=== PATIENT | female | born 1970 | race Caucasian/White ===

== ENCOUNTER → 2019-05-23 09:48 | Outpatient (BNVA) | payer MEDICARE, MEDICAID, SELFPAY | PROVIDERS: Family Provider Family Medicine; PCP Family Medicine; Visit Provider Nurse Practitioner Psychiatric/Mental Health | DX: F20.0 Paranoid schizophrenia (principal); F17.210 Nicotine dependence, cigarettes, uncomplicated; R41.83 Borderline intellectual functioning | CPT/HCPCS: 99213 ==

== ENCOUNTER → 2019-06-19 12:42 | Outpatient (BNVA) | payer MEDICARE, MEDICAID, SELFPAY | PROVIDERS: Family Provider Family Medicine; PCP Family Medicine; Visit Provider Nurse Practitioner Psychiatric/Mental Health | DX: R41.83 Borderline intellectual functioning (principal); F17.210 Nicotine dependence, cigarettes, uncomplicated; F25.0 Schizoaffective disorder, bipolar type; F20.0 Paranoid schizophrenia | CPT/HCPCS: 99213 ==

== ENCOUNTER → 2019-07-21 13:48 | Outpatient (BNVA) | payer MEDICARE, MEDICAID, SELFPAY | PROVIDERS: Family Provider Family Medicine; PCP Family Medicine; Visit Provider Nurse Practitioner Psychiatric/Mental Health | DX: R41.83 Borderline intellectual functioning (principal); F17.210 Nicotine dependence, cigarettes, uncomplicated; F25.0 Schizoaffective disorder, bipolar type; F20.0 Paranoid schizophrenia | CPT/HCPCS: 99213 ==

== ENCOUNTER → 2019-08-18 07:31 | Outpatient (BNVA) | payer MEDICARE, MEDICAID, SELFPAY | PROVIDERS: Family Provider Family Medicine; PCP Family Medicine; Visit Provider Nurse Practitioner Psychiatric/Mental Health | DX: F25.0 Schizoaffective disorder, bipolar type (principal); F20.0 Paranoid schizophrenia; R41.83 Borderline intellectual functioning; F17.210 Nicotine dependence, cigarettes, uncomplicated; F43.12 Post-traumatic stress disorder, chronic | CPT/HCPCS: 99213 ==

== ENCOUNTER → 2019-09-15 08:14 | Outpatient (BNVA) | payer MEDICARE, MEDICAID, SELFPAY | PROVIDERS: Family Provider Family Medicine; PCP Family Medicine; Visit Provider Nurse Practitioner Psychiatric/Mental Health | DX: F25.0 Schizoaffective disorder, bipolar type (principal); F20.0 Paranoid schizophrenia; R41.83 Borderline intellectual functioning; F17.210 Nicotine dependence, cigarettes, uncomplicated | CPT/HCPCS: 99213 ==

== ENCOUNTER → 2019-10-13 08:19 | Outpatient (BNVA) | payer MEDICARE, MEDICAID, SELFPAY | PROVIDERS: Family Provider Family Medicine; PCP Family Medicine; Visit Provider Nurse Practitioner Psychiatric/Mental Health | DX: F25.0 Schizoaffective disorder, bipolar type (principal); F20.0 Paranoid schizophrenia; R41.83 Borderline intellectual functioning; F17.210 Nicotine dependence, cigarettes, uncomplicated | CPT/HCPCS: 99213 ==

== ENCOUNTER → 2019-11-10 08:44 | Outpatient (BNVA) | payer MEDICARE, MEDICAID, SELFPAY | PROVIDERS: Family Provider Family Medicine; PCP Family Medicine; Visit Provider Nurse Practitioner Psychiatric/Mental Health | DX: F25.0 Schizoaffective disorder, bipolar type (principal); F20.0 Paranoid schizophrenia; R41.83 Borderline intellectual functioning; F17.210 Nicotine dependence, cigarettes, uncomplicated | CPT/HCPCS: 99213 ==

== ENCOUNTER → 2019-12-21 08:01 | Outpatient (BNVA) | payer MEDICARE, MEDICAID, SELFPAY | PROVIDERS: Family Provider Family Medicine; PCP Family Medicine; Visit Provider Nurse Practitioner Psychiatric/Mental Health | DX: F20.0 Paranoid schizophrenia; R41.83 Borderline intellectual functioning; F17.210 Nicotine dependence, cigarettes, uncomplicated | CPT/HCPCS: 99214 ==

== ENCOUNTER → 2020-01-19 08:29 | Outpatient (BNVA) | payer MEDICARE, MEDICAID, SELFPAY | PROVIDERS: Family Provider Family Medicine; PCP Family Medicine; Visit Provider Nurse Practitioner Psychiatric/Mental Health | DX: F25.0 Schizoaffective disorder, bipolar type (principal); F20.0 Paranoid schizophrenia; R41.83 Borderline intellectual functioning; F17.210 Nicotine dependence, cigarettes, uncomplicated | CPT/HCPCS: 99213 ==

== ENCOUNTER 2020-02-29 10:48 | Outpatient (CLI) | payer MEDICARE, MEDICAID, SELFPAY ==
--- NOTE | 2020-02-29 10:56 | MM_ITS ---
WS: [id number] BILATERAL SCREENING DIGITAL MAMMOGRAM WITH CAD HISTORY: SCREENING COMPARISON: 02/27/2019 and 02/25/2018 Bilateral CC and MLO views submitted. Computer aided detection analyzed. Breast composition: There are scattered areas of fibroglandular density. No suspicious masses, microc alcifications or architectural distortion. MM/[id number] IMPRESSION: BI-RADS: 1-Negative FOLLOW UP: 1 Year Follow-up
== END 2020-02-29 10:49 | disposition home or self-care (01) ==
LOC: RADSHAW 10:53
PROVIDERS: PCP Family Medicine; Visit Provider Family Medicine
DX: Z12.31 Encounter for screening mammogram for malignant neoplasm of breast (principal)
CPT/HCPCS: 77067

== ENCOUNTER → 2020-06-06 09:10 | Outpatient (BNVA) | payer MEDICARE, MEDICAID, SELFPAY | PROVIDERS: PCP Family Medicine; Visit Provider Nurse Practitioner Psychiatric/Mental Health | DX: F25.0 Schizoaffective disorder, bipolar type (principal); F20.0 Paranoid schizophrenia; R41.83 Borderline intellectual functioning; F17.210 Nicotine dependence, cigarettes, uncomplicated | CPT/HCPCS: 99214 ==

== ENCOUNTER → 2020-07-04 07:38 | Outpatient (BNVA) | payer MEDICARE, MEDICAID, SELFPAY | PROVIDERS: PCP Family Medicine; Visit Provider Nurse Practitioner Psychiatric/Mental Health | DX: F25.0 Schizoaffective disorder, bipolar type (principal); F20.0 Paranoid schizophrenia; R41.83 Borderline intellectual functioning; F17.210 Nicotine dependence, cigarettes, uncomplicated | CPT/HCPCS: 99214 ==

== ENCOUNTER → 2020-08-01 08:01 | Outpatient (BNVA) | payer MEDICARE, MEDICAID, SELFPAY | PROVIDERS: PCP Family Medicine; Visit Provider Nurse Practitioner Psychiatric/Mental Health | DX: F25.0 Schizoaffective disorder, bipolar type (principal); F20.0 Paranoid schizophrenia; R41.83 Borderline intellectual functioning; F17.210 Nicotine dependence, cigarettes, uncomplicated | CPT/HCPCS: 99214 ==

== ENCOUNTER → 2020-08-29 09:12 | Outpatient (BNVA) | payer MEDICARE, MEDICAID, SELFPAY | PROVIDERS: PCP Family Medicine; Visit Provider Nurse Practitioner Psychiatric/Mental Health | DX: F25.0 Schizoaffective disorder, bipolar type (principal); F20.0 Paranoid schizophrenia; R41.83 Borderline intellectual functioning; F17.210 Nicotine dependence, cigarettes, uncomplicated | CPT/HCPCS: 99214 ==

== ENCOUNTER → 2020-10-04 08:08 | Outpatient (BNVA) | payer MEDICARE, MEDICAID, SELFPAY | PROVIDERS: PCP Family Medicine; Visit Provider Nurse Practitioner Psychiatric/Mental Health | DX: F25.0 Schizoaffective disorder, bipolar type (principal); F20.0 Paranoid schizophrenia; R41.83 Borderline intellectual functioning; F17.210 Nicotine dependence, cigarettes, uncomplicated | CPT/HCPCS: 99214 ==

== ENCOUNTER → 2020-11-14 07:36 | Outpatient (BNVA) | payer MEDICARE, MEDICAID, SELFPAY | PROVIDERS: PCP Family Medicine; Visit Provider Nurse Practitioner Psychiatric/Mental Health | DX: F25.0 Schizoaffective disorder, bipolar type (principal); F20.0 Paranoid schizophrenia; R41.83 Borderline intellectual functioning; F17.210 Nicotine dependence, cigarettes, uncomplicated | CPT/HCPCS: 99214 ==

== ENCOUNTER → 2020-12-19 07:16 | Outpatient (BNVA) | payer MEDICARE, MEDICAID, SELFPAY | PROVIDERS: PCP Family Medicine; Visit Provider Nurse Practitioner Psychiatric/Mental Health | DX: F25.0 Schizoaffective disorder, bipolar type (principal); F20.0 Paranoid schizophrenia; R41.83 Borderline intellectual functioning; F17.210 Nicotine dependence, cigarettes, uncomplicated; Z79.899 Other long term (current) drug therapy | CPT/HCPCS: 99214 ==

== ENCOUNTER 2021-01-03 07:39 | Outpatient (CLI) | payer MEDICARE, MEDICAID, SELFPAY ==
[2021-01-03 08:05] VITALS: BP 105/75; PULSE 81; RESP 20; TEMP 36.8; O2SAT 97; BMI 41.2
[2021-01-03 08:37] VITALS: BP 97/71; PULSE 77; O2SAT 95
[2021-01-03 09:31] VITALS: BP 97/69; PULSE 73; RESP 20; TEMP 36.6; O2SAT 98
== END 2021-01-03 07:40 | disposition home or self-care (01) ==
PROVIDERS: PCP Family Medicine; Visit Provider Family Medicine
DX: U07.1 COVID-19 (principal)
CPT/HCPCS: 96365

== ENCOUNTER → 2021-01-31 07:32 | Outpatient (BNVA) | payer MEDICARE, MEDICAID, SELFPAY | PROVIDERS: PCP Family Medicine; Visit Provider Nurse Practitioner Psychiatric/Mental Health | DX: F25.0 Schizoaffective disorder, bipolar type (principal); F20.0 Paranoid schizophrenia; F17.210 Nicotine dependence, cigarettes, uncomplicated; R41.83 Borderline intellectual functioning; Z79.899 Other long term (current) drug therapy | CPT/HCPCS: 99214 ==

== ENCOUNTER → 2021-02-21 13:31 | Outpatient (BNVA) | payer MEDICARE, MEDICAID, SELFPAY | PROVIDERS: PCP Family Medicine; Visit Provider Nurse Practitioner Psychiatric/Mental Health | DX: F25.0 Schizoaffective disorder, bipolar type (principal); F20.0 Paranoid schizophrenia; F17.210 Nicotine dependence, cigarettes, uncomplicated; Z79.899 Other long term (current) drug therapy; R41.83 Borderline intellectual functioning | CPT/HCPCS: 99214 ==

== ENCOUNTER → 2021-04-18 08:40 | Outpatient (BNVA) | payer MEDICARE, MEDICAID, SELFPAY | PROVIDERS: PCP Family Medicine; Visit Provider Nurse Practitioner Psychiatric/Mental Health | DX: F25.0 Schizoaffective disorder, bipolar type (principal); F20.0 Paranoid schizophrenia; F17.210 Nicotine dependence, cigarettes, uncomplicated; R41.83 Borderline intellectual functioning; Z03.89 Encounter for observation for other suspected diseases and conditions ruled out | CPT/HCPCS: 99214 ==

== ENCOUNTER 2021-04-27 03:26 | Emergency (ER) | payer MEDICARE, MEDICAID, SELFPAY ==
[2021-04-27 03:39] VITALS: BP 137/98; PULSE 78; RESP 18; TEMP 36.4; O2SAT 99; BMI 41.0
[2021-04-27] MEDS: eye irrigation 30 mL Btl EYE-BOTH (04:20)
[2021-04-27 05:20] VITALS: PULSE 78; RESP 18; O2SAT 96
[2021-04-27] MEDS: polymyxin-trimethoprim Op Soln 10 mL Btl 1 DROP EYE-BOTH (05:20)
[2021-04-27] MEDS: ketorolac 0.5% Op 5 mL Btl 1 DROP EYE-BOTH (05:20)
--- NOTE | 2021-04-27 05:26 | ED_ITS ---
HPI - Eye Problem General: Chief complaint: Eye Problems Stated complaint: Eye Irratation\Lice Shampoo Time Seen by Provider: 04/27/21 03:51 History of Present Illness: HPI Narrative: 50-year-old female with a history of schizophrenia. She had ongoing feeling of her skin and hair crawling. She was checked by staff, and no lice were found, but the patient was essentially convinced she had lice. She decided to use lice shampoo, and it got in her eyes. she washed the eyes out with water at home, but eyes are still blurry and painful. She says she washed a white film out of her eyes after the shampoo use. chief complaint: eye pain, eye redness and eye injury Onset (ago): hour(s) Onset description: sudden Duration: constant Location: both eyes Eye Symptoms: burning, redness and pain Place: other Mechanism: chemical exposure Severity: moderate If Pain, Quality: burning Context: trauma Associated symptoms: Reports rhinorrhea; Denies cough, fever(s), nausea, short of breath or vomiting Review of Systems Const: Denies: fever(s) Eyes: Reports: blurry vision, eye discomfort, eye discharge and eye redness Card: Denies: chest pain Resp: Denies: dyspnea GI: Denies: nausea or vomiting PFS ED PFSH: Medical History (Updated 04/27/21 @ 04:38 by Feroz Gaviria DO) Borderline intellectual functioning delivery delivered three times Chronic paranoid schizophrenia Cigarette nicotine dependence Psychiatric care Schizoaffective disorder, bipolar type Social History (Updated 06/19/19 @ 13:16 by Radha Castillo RN) Smoking and tobacco status: current every day smoker cigarettes Packs smoked per day: 1 Years cigarettes smoked: 20 Quit status (tobacco): considering quitting Second hand smoke exposure: Yes Smoking risk assessment/counseling performed?: No Reason smoking risk a ssessment not done: not indicated Female Reproductive History: Date of last menstrual period: 04/27/21 Physical Exam Const: COMMON NORMALS: no acute distress GENERAL APPEARANCE: not ill appearing HENMT: COMMON NORMALS: normocephalic, atraumatic and Normal external nose present HEAD & SCALP: normocephalic and atraumatic FACE & SINUS: normal facial exam NOSE: Normal external nose present and Normal nares present Eye: COMMON NORMALS: Equal, round and reactive pupils present and EOMs intact bilaterally GENERAL EYE: normal light reflex VISUAL ADEN: No peripheral vision loss and No central vision loss EYELID: eyelids normal CONJUNCTIVA: Yes conjunctival abnormal positive bilateral conjunctival injection and discharge (clear) PUPIL: Yes Equal, round and reactive pupils present DIRECT OPHTHALMOSCOPY: Yes normal light reflex Chest: COMMONS NORMALS: normal inspection of the chest Resp: COMMON NORMALS: normal respiratory effort Cardio: COMMON NORMALS: regular rate and regular rhythm RATE: regular rate RHYTHM: regular rhythm Course Vital Signs: Vital signs: Vital Signs Temperature 97.5 F L 04/27/21 03:39 Pulse Rate 78 04/27/21 05:20 Respiratory Rate 18 04/27/21 05:20 Blood Pressure 137/98 04/27/21 03:39 Pulse Oximetry 96 04/27/21 05:20 MDM - Eye Problem MDM Narrative: Medical decision making narrative: chemical conjunctivitis with pain. tetracaine used for anesthesia, eyes flushed with eye stream. polytrim drops and ketorlac for pain. ophth fu. Discharge Plan Discharge Patient Disposition: Home Clinical Impression: Conjunctivitis Qualifiers: Conjunctivitis type: acute Acute conjunctivitis type: toxic Laterality: bilateral Qualified Code(s): H10.213 - Acute toxic conjunctivitis, bilateral Condition: Stable Prescriptions: No Action magnesium hydroxide [Jamison Milk of Magnesia] 400 mg/5 mL suspension 30 ml PO DAILY PRNRF: 0 acetaminophen [Tylenol Extra Strength] 500 mg tablet 1,000 mg PO Q6H PRNRF: 0 Trelegy Ellipta 100-62.5-25 mcg blister with device 1 inh inhalation DAILY RF: 0 nicotine (polacrilex) 4 mg lozenge 4 mg BUCCAL Q1H PRN (Reason: nicotine cravings) Qty: 24 RF: 6 melatonin 3 mg capsule 3 mg PO .bedtime Qty: 30 RF: 6 diazepam [Valium] 2 mg tablet 2 mg PO BID PRN (Reason: anxiety) Qty: 60 RF: 1 magnesium hydroxide [Milk of Magnesia] 400 mg/5 mL suspension 15 ml PO DAILY PRNRF: 0 duloxetine [Cymbalta] 30 mg capsule,delayed release(DR/EC) 30 mg PO .morning Qty: 14 RF: 0 ziprasidone HCl [Geodon] 20 mg capsule 20 mg PO BID Qty: 60 RF: 1 Discharge Orders: Discharge ED (Routine); Ordered 04/27/21 Ordered By: Feroz Gaviria Referrals: Payam Martinez MD [Physician] - 1-3 days Tyson Velasco MD [Primary Care Provider] - Discharge Diet: Usual diet Discharge Activity: Increase activity as tolerated Patient Instructions: Conjunctivitis (ED) Activity Restrictions/Additional Instructions: Use the drops you were given every 6 hours while awake as directed. Return for worsening pain or vision despite treatment. Call ophthalmology clinic Wednesday morning for an appointment. Let them know you were seen in the emergency department, and referred to them. Coding Level of Care Code ED Conditioning Coach for Chg Fwd Exam Detailed
== END 2021-04-27 05:41 | disposition home or self-care (01) ==
PROVIDERS: Emergency Provider Emergency Medicine; PCP Family Medicine
DX: H10.213 Acute toxic conjunctivitis, bilateral (principal); F17.210 Nicotine dependence, cigarettes, uncomplicated; T49.0X5A Adverse effect of local antifungal, anti-infective and anti-inflammatory drugs, initial encounter
CPT/HCPCS: 99283

== ENCOUNTER → 2021-05-30 07:22 | Outpatient (BNVA) | payer MEDICARE, MEDICAID, SELFPAY | PROVIDERS: PCP Family Medicine; Visit Provider Nurse Practitioner Psychiatric/Mental Health | DX: F25.0 Schizoaffective disorder, bipolar type (principal); F20.0 Paranoid schizophrenia; F17.210 Nicotine dependence, cigarettes, uncomplicated; R41.83 Borderline intellectual functioning; Z03.89 Encounter for observation for other suspected diseases and conditions ruled out | CPT/HCPCS: 99214 ==

== ENCOUNTER 2021-06-06 10:31 | Outpatient (CLI) | payer MEDICARE, MEDICAID, SELFPAY ==
--- NOTE | 2021-06-06 10:50 | ECG_ITS ---
[facility] Test Date: 2021-06-06 Pat Name: Yahaira Meyer Department: Room: Gender: Female [employer] Principal: : 1970 Requested By: Yumiko Murphy Order Number: [id number] Mercedes MD: Isma Jaimes M.D. Measurements Intervals [place] Rate: 85 P: 15 IA: 127 QRS: -37 QRSD: 78 T: 58 QT: 346 QTc: 414 Interpretive Statements SINUS RHYTHM LEFT AXIS DEVIATION [QRS AXIS < -30] LOW QRS VOLTAGE IN PRECORDIAL LEADS [QRS DEFLECTION < 1.0 mV IN CHEST LEADS] POSSIBLE ANTERIOR MYOCARDIAL INFARCTION , OF INDETERMINATE AGE [30 ms Q WAVE IN V3/V4, OR R < 0.2 mV IN V4] No previous ECG available for comparison Electronically Signed On 06-07-2021 14:09:16 SURVEILLANCE SYSTEM MONITOR by Isma Jaimes M.D. [id number]
== END 2021-06-06 10:32 | disposition home or self-care (01) ==
PROVIDERS: PCP Family Medicine; Visit Provider Nurse Practitioner Psychiatric/Mental Health
DX: Z03.89 Encounter for observation for other suspected diseases and conditions ruled out (principal)
CPT/HCPCS: 80053; 80061; 83036; 93005

== ENCOUNTER → 2021-08-08 08:40 | Outpatient (BNVA) | payer MEDICARE, MEDICAID, SELFPAY | PROVIDERS: PCP Family Medicine; Visit Provider Nurse Practitioner Psychiatric/Mental Health | DX: F25.0 Schizoaffective disorder, bipolar type (principal); F20.0 Paranoid schizophrenia; R41.83 Borderline intellectual functioning; F17.210 Nicotine dependence, cigarettes, uncomplicated | CPT/HCPCS: 80053; 99214 ==

== ENCOUNTER 2021-08-17 16:59 | Emergency (ER) | payer MEDICARE, MEDICAID, SELFPAY ==
--- NOTE | 2021-08-17 17:01 | CTR_ITS ---
PROCEDURE INFORMATION: Exam: CT Head Without Contrast Exam date and time: 08/17/2021 4:59 PM Age: 50 years old Clinical indication: Altered mental status/memory loss; Patient HX: PT found outdoors unresponsive; Additional info: AMS TECHNIQUE: Imaging protocol: Computed tomography of the head without contrast. Radiation optimization: All CT scans at this facility use at least one of these dose optimization techniques: automated exposure control; mA and/or kV adjustment per patient size (includes targeted exams where dose is matched to clinical indication); or iterative reconstruction. COMPARISON: No relevant prior studies available. RADIATION DOSE METRICS: Total DLP (mGy-cm): 927.55 FINDINGS: Brain: There is moderate cerebral atrophy. No hemorrhage. Unremarkable white matter. No mass effect. Cerebral ventricles: No ventriculomegaly. Paranasal sinuses: Visualized sinuses are unremarkable. No fluid levels. Mastoid air cells: Visualized mastoid air cells are well aerated. Bones/joints: Unremarkable. No acute fracture. Soft tissues: Unremarkable. CT/CT head wo con* [id number] IMPRESSION: No acute intracranial abnormality.
--- NOTE | 2021-08-17 17:01 | XRR_ITS ---
PROCEDURE INFORMATION: Exam: XR Chest Exam date and time: 08/17/2021 5:25 PM Age: 50 years old Clinical indication: Shortness of breath; Patient HX: SOB and cough found unresponsive; Additional info: Dyspnea/cough TECHNIQUE: Imaging protocol: XR of the chest. Views: 1 view. COMPARISON: No relevant prior studies available. FINDINGS: Lungs: Unremarkable. No consolidation. Pleural spaces: Unremarkable. No pleural effusion. No pneumothorax. Heart/Mediastinum: Unremarkable. No cardiomegaly. Bones/joints: Unremarkable. XR/XR chest 1V portable [id number] IMPRESSION: No acute findings.
[2021-08-17] MEDS: lactated ringers 1,000 ML 999 ML IV (17:03)
--- NOTE | 2021-08-17 17:03 | W.ED.GENADLT ---
Documented by User: Devin Waddell DO 08/18/21 11:26 HPI - General Adult General: Chief complaint: Altered Mental Status Stated complaint: AMS Time Seen by Provider: 08/17/21 17:00 Source: patient Mode of arrival: ambulatory Limitations: no limitations History of Present Illness: 50-year-old female presents to the emergency room via EMS. She is unable to give any history ambulance was called [facility] a [facility] where she was found unresponsive sitting on the steps her ID was wilmer pack attached to her waist. She will respond to noxious stimuli and she will blink she is a glabellar reflex and notes pain but otherwise does not respond does not give any meaningful history at all. She does open her eyes but is not tracking at all. She not previously been here except for a conjunctivitis. She has been at [facility] multiple times in the past and has a history of schizophrenia and a history of borderline intellectual functioning. Onset (ago): unknown Treatments prior to arrival: none Review of Systems General: Reports: ROS unobtainable due to medical condition and ROS unobtainable due to mental status [facility] ED PFSH: Medical History Borderline intellectual functioning delivery delivered three times Chronic paranoid schizophrenia Cigarette nicotine dependence Psychiatric care Schizoaffective disorder, bipolar type Social History Smoking and tobacco status: current every day smoker cigarettes Packs smoked per day: 1 Years cigarettes smoked: 20 Quit status (tobacco): considering quitting Second hand smoke exposure: Yes Smoking risk assessment/counseling performed?: No Reason smoking risk assessment not done: not indicated Female Reproductive History: Date of last menstrual period: 04/27/21 Physical Exam HENMT: COMMON NORMALS: normocephalic, atraumatic, external ears normal, EAC's normal, TM's normal bilaterally, Normal nasal mucous membranes and turbinates present, moist oral mucous membranes and oropharynx normal HEAD & SCALP: normocephalic and atraumatic NOSE: Normal nasal mucous membranes and turbinates present EXTERNAL EAR: Yes external ears normal EXTERNAL AUDITORY CANAL: EAC's normal TYMPANIC MEMBRANE: TM's normal bilaterally Eye: COMMON NORMALS: Equal, round and reactive pupils present, EOMs intact bilaterally, conjunctivae normal and no scleral icterus CONJUNCTIVA: Yes conjunctivae normal PUPIL: Yes Equal, round and reactive pupils present Neck/C-Spine: COMMON NORMALS: full ROM, no lymphadenopathy, supple and no JVD Resp: COMMON NORMALS: normal respiratory effort, No retractions, No use of accessory muscles and clear to auscultation bilaterally AUSCULTATION: clear to auscultation bilaterally Cardio: COMMON NORMALS: no JVD, regular rate, regular rhythm and No murmurs present (Cardio) RATE: regular rate RHYTHM: regular rhythm GI: COMMON NORMALS: Soft to palpation and No hepatosplenomegaly present AUSCULTATION: Yes normoactive bowel sounds PALPATION: Yes Soft to palpation, No Tenderness to palpation present (GI), No Guarding due to palpation present (GI) and Yes No hepatosplenomegaly present Extremity: COMMON NORMALS: normal to inspection, capillary refill normal, no clubbing, cyanosis or edema, no calf tenderness and no pedal edema Skin: COMMON NORMALS: no rashes or lesions noted GENERAL SKIN EXAM: no rashes or lesions noted Course Vital Signs: Vital signs: Vital Signs Temperature 98.5 F 08/17/21 20:36 Pulse Rate 101 H 08/18/21 03:28 Respiratory Rate 20 H 08/18/21 03:28 Blood Pressure 105/70 08/18/21 03:28 Pulse Oximetry 95 08/18/21 03:28 [facility] - General Adult Medical Decision Making Care signed out to Dr. Gaviria at change of shift. See final notes for diagnosis and disposition. Medical Records I reviewed the patient's medical records. Lab Data I reviewed the patient's lab results. : 08/17/21 16:37 08/17/21 16:37 Radiology Impressions Chest X-Ray 08/17/21 17:01 IMPRESSION: No acute findings. Head CT 08/17/21 17:01 IMPRESSION: No acute intracranial abnormality. Laboratory Results WBC 13.8 10^3/uL (4.0-10.0) H 08/17/21 16:37 RBC 5.22 10^6/uL (4.1-5.3) 08/17/21 16:37 Hgb 14.3 g/dL (11.5-15.3) 08/17/21 16:37 Hct 44.3 % (37.0-47.0) 08/17/21 16:37 MCV 84.9 fl (81-99) 08/17/21 16:37 MCH 27.4 pg (28.0-34.0) L 08/17/21 16:37 MCHC 32.3 g/dL (30.0-36.0) 08/17/21 16:37 RDW 13.8 % (12.1-15.1) 08/17/21 16:37 Plt Count 304 10^3/cmm (130-400) 08/17/21 16:37 MPV 10.6 fL (7.4-10.4) H 08/17/21 16:37 Neut % (Auto) 66.6 % 08/17/21 16:37 Lymph % (Auto) 24.5 % 08/17/21 16:37 Rich % (Auto) 6.9 % 08/17/21 16:37 Eos % (Auto) 0.9 % 08/17/21 16:37 Baso % (Auto) 0.7 % 08/17/21 16:37 Neut # (Auto) 9.17 10^3/uL (1.8-7.7) H 08/17/21 16:37 Lymph # (Auto) 3.4 10^3/uL (0.8-4.8) 08/17/21 16:37 Rich # (Auto) 1.0 10^3/uL (0.2-0.9) H 08/17/21 16:37 Eos # (Auto) 0.1 10^3/uL (0.0-0.8) 08/17/21 16:37 Baso # (Auto) 0.1 10^3/uL (0.0-0.1) 08/17/21 16:37 Nucleated RBC % (auto) 0 % 08/17/21 16:37 Nucleated RBCs # 0.0 /100WBC 08/17/21 16:37 Specimen Type Arterial 08/17/21 17:21 Sample Site Radial, left 08/17/21 17:21 ABG pH 7.43 (7.35-7.45) 08/17/21 17:21 ABG pCO2 32.9 mmHg (35-45) L 08/17/21 17:21 ABG pO2 88.3 mmHg (80.0-100.0) 08/17/21 17:21 ABG HCO3 21.6 mmol/L (22-26) L 08/17/21 17:21 ABG O2 Saturation 97.6 08/17/21 17:21 ABG Base Excess -2.1 mmol/L (-2.0-2.0) L 08/17/21 17:21 Sj Test Pos 08/17/21 17:21 Hematocrit 42.5 % (37-47) 08/17/21 17:21 Hgb O2 Saturation 94.7 % (95-100) L 08/17/21 17:21 Carboxyhemoglobin 2.1 %THgb (0.4-20.1) 08/17/21 17:21 Methemoglobin 0.8 % (0.4-1.5) 08/17/21 17:21 Total Hemoglobin 13.9 g/dL (12-16) 08/17/21 17:21 Sodium 141.0 mmol/L (131-143) 08/17/21 17:21 Potassium 3.6 mmol/L (3.5-5.0) 08/17/21 17:21 Glucose 114.0 mg/dL (70-115) 08/17/21 17:21 Ionized Calcium 1.2 mmol/L (1.1-1.4) 08/17/21 17:21 O2 Delivery Device Nc 08/17/21 17:21 FiO2 2.0 % 08/17/21 17:21 City Councilman ID Claaro 08/17/21 17:21 Sodium 137 mmol/L (136-145) 08/17/21 16:37 Potassium 3.7 mmol/L (3.5-5.1) 08/17/21 16:37 Chloride 100 mmol/L (98-107) 08/17/21 16:37 Carbon Dioxide 20 mmol/L (22-29) L 08/17/21 16:37 Anion Gap 20.7 (5-19) H 08/17/21 16:37 BUN 6 mg/dL (6-20) 08/17/21 16:37 Creatinine 0.8 mg/dL (0.5-0.9) 08/17/21 16:37 GFR Calculation 76.2 mL/min (90-130) L 08/17/21 16:37 Glucose 121 mg/dL (65-115) H 08/17/21 16:37 Calculated Osmolality 283 mOsm/kg (285-295) L 08/17/21 16:37 Lactic Acid 3.4 mmol/L (0.5-2.2) H 08/17/21 17:30 Lactic Acid (Sepsis) 2.8 mmol/L (0.5-2.2) H 08/17/21 19:09 Calcium 8.9 mg/dL (8.5-10.5) 08/17/21 16:37 Magnesium 1.8 mg/dL (1.7-2.3) 08/17/21 16:37 Total Bilirubin 0.2 mg/dL (0.15-1.2) 08/17/21 16:37 AST 28 U/L (0-32) 08/17/21 16:37 ALT 20 U/L (0-33) 08/17/21 16:37 Alkaline Phosphatase 93 IU/L (35-105) 08/17/21 16:37 Creatine Kinase 1056 U/L (26-192) H* 08/17/21 16:37 Total Protein 6.9 g/dL (6.6-8.7) 08/17/21 16:37 Albumin 4.2 g/dL (3.5-5.2) 08/17/21 16:37 Globulin 2.7 g/dL (1.3-4.6) 08/17/21 16:37 Lipase 42 U/L (13-60) 08/17/21 16:37 HCG, Qual Negative (Negative) 08/17/21 16:37 Urine Color Yellow (Yellow) 08/17/21 17:15 Urine Appearance Clear (CLEAR) 08/17/21 17:15 Urine pH 7 (5-7) 08/17/21 17:15 Ur Specific Noonan 1.005 (1.005-1.030) 08/17/21 17:15 Urine Protein Neg (Negative) 08/17/21 17:15 Urine Glucose (UA) Norm (Normal) 08/17/21 17:15 Urine Ketones Negative (Negative) 08/17/21 17:15 Urine Blood Neg (Negative) 08/17/21 17:15 Urine Nitrate Negative (Negative) 08/17/21 17:15 Urine Bilirubin Neg (Negative) 08/17/21 17:15 Urine Urobilinogen Norm mg/dL (Negative) 08/17/21 17:15 Ur Leukocyte Esterase Negative (Negative) 08/17/21 17:15 Salicylates < 0.3 mg/dL (3-10) L 08/17/21 16:37 Urine Opiates Screen Negative ng/mL (Negative) 08/17/21 17:15 Acetaminophen < 5.0 ug/mL (10-30) L 08/17/21 16:37 Ur Barbiturates Screen Negative ng/mL (Negative) 08/17/21 17:15 Ur Phencyclidine Scrn Negative ng/mL (Negative) 08/17/21 17:15 Ur Amphetamines Screen Negative ng/mL (Negative) 08/17/21 17:15 U Benzodiazepines Scrn Positive ng/mL (Negative) H 08/17/21 17:15 Urine Cocaine Screen Negative ng/mL (Negative) 08/17/21 17:15 U Marijuana (THC) Screen Negative ng/mL (Negative) 08/17/21 17:15 Ethyl Alcohol 105 mg/dL (0-10) H 08/18/21 03:51 Serum Ketones Negative (Negative) 08/17/21 17:30 Discharge Plan Discharge Patient Disposition: Home Clinical Impression: Alcoholic intoxication Condition: Stable Prescriptions: No Action magnesium hydroxide [Jamison Milk of Magnesia] 400 mg/5 mL suspension 30 ml PO DAILY PRN (Reason: Constipation) 0RF acetaminophen [Tylenol Extra Strength] 500 mg tablet 1,000 mg PO Q6H PRN (Reason: Pain) 0RF Trelegy Ellipta 100-62.5-25 mcg blister with device 1 inh inhalation DAILY 0RF nicotine (polacrilex) 4 mg lozenge 4 mg BUCCAL Q1H PRN (Reason: nicotine cravings) Qty: 24 6RF Rx Instructions: May take one nicotine lozenge-do not exceed more than 20 oz/day or 5 oz in 6 hr diazepam [Valium] 2 mg tablet 2 mg PO BID PRN (Reason: anxiety) Qty: 60 2RF Rx Instructions: Take one tablet twice per day as needed for anxiety Geodon 80 mg capsule 80 mg PO QPM 0RF Rx Instructions: Take one capsule with dinner in evening, 500 jim of food Depakote 500 mg tablet,delayed release (DR/EC) 500 mg PO QPM 0RF Rx Instructions: Take one tablet at 7 pm Geodon 40 mg capsule 40 mg PO QAM 0RF Rx Instructions: Take one capsule every morning with 500 jim of food melatonin 3 mg capsule 3 mg PO BEDTIME 0RF Rx Instructions: Take one capsule at bedtime as needed for sleep Discharge Orders: Discharge ED (Routine); Ordered 08/18/21 Ordered By: Feroz Gaviria Referrals: Tyson Velasco MD [Primary Care Provider] - 4-7 days Patient Instructions: Alcohol Intoxication (ED) Activity Restrictions/Additional Instructions: Avoid alcohol and other substances. Return for worsening mental status, any thoughts or wishes to harm your self or anyone else, language or vision problems, weakness, other concerning symptoms. Coding Level of Care Code ED Fern Picker for Chg Fwd Exam Comprehensive Documented by User: Feroz Gaviria DO 08/20/21 00:44 HPI - General Adult General: Chief complaint: Altered Mental Status Stated complaint: AMS Time Seen by Provider: 08/17/21 17:00 [facility] ED PFSH: Medical History Borderline intellectual functioning delivery delivered three times Chronic paranoid schizophrenia Cigarette nicotine dependence Psychiatric care Schizoaffective disorder, bipolar type Social History Smoking and tobacco status: current every day smoker cigarettes Packs smoked per day: 1 Years cigarettes smoked: 20 Quit status (tobacco): considering quitting Second hand smoke exposure: Yes Smoking risk assessment/counseling performed?: No Reason smoking risk assessment not done: not indicated Course Vital Signs: Vital signs: Vital Signs Temperature 98.5 F 08/17/21 20:36 Pulse Rate 101 H 08/18/21 03:28 Respiratory Rate 20 H 08/18/21 03:28 Blood Pressure 105/70 08/18/21 03:28 Pulse Oximetry 95 08/18/21 03:28 MDM - General Adult Medical Decision Making Care signed out to Dr. Gaviria at change of shift. See final notes for diagnosis and disposition. 50-year-old female checked out to me by Dr. Waddell at shift change. Lady was initially awake, but not responding to anything but noxious stimuli on original exam. She was mildly tachycardic. She is mildly hypotensive as well. She has responded well to fluid infusion. Her blood pressure currently 100/70. Oxygen sats have remained good. Her white blood cell count was 13.8. BMP is essentially normal. Her initial alcohol level was critical at 322. 6 hours later, it was 234, indicating that she was on her way up and not down at the 322 denisse. She was given IV fluid support for hydration. Currently alcohol level is 105 and falling. She is now awake, and alert. She denies suicidality. She denies homicidality. She denies overt psychotic symptoms. She does not wish to be admitted. She says that she rarely drinks. She lives at [facility]. She appears to be a gillespie of the [facility]. She will be allowed discharge. Velasquez has been removed. Lab Data : 08/17/21 16:37 08/17/21 16:37 Radiology Impressions Chest X-Ray 08/17/21 17:01 IMPRESSION: No acute findings. Head CT 08/17/21 17:01 IMPRESSION: No acute intracranial abnormality. Laboratory Results WBC 13.8 10^3/uL (4.0-10.0) H 08/17/21 16:37 RBC 5.22 10^6/uL (4.1-5.3) 08/17/21 16:37 Hgb 14.3 g/dL (11.5-15.3) 08/17/21 16:37 Hct 44.3 % (37.0-47.0) 08/17/21 16:37 MCV 84.9 fl (81-99) 08/17/21 16:37 MCH 27.4 pg (28.0-34.0) L 08/17/21 16:37 MCHC 32.3 g/dL (30.0-36.0) 08/17/21 16:37 RDW 13.8 % (12.1-15.1) 08/17/21 16:37 Plt Count 304 10^3/cmm (130-400) 08/17/21 16:37 MPV 10.6 fL (7.4-10.4) H 08/17/21 16:37 Neut % (Auto) 66.6 % 08/17/21 16:37 Lymph % (Auto) 24.5 % 08/17/21 16:37 Rich % (Auto) 6.9 % 08/17/21 16:37 Eos % (Auto) 0.9 % 08/17/21 16:37 Baso % (Auto) 0.7 % 08/17/21 16:37 Neut # (Auto) 9.17 10^3/uL (1.8-7.7) H 08/17/21 16:37 Lymph # (Auto) 3.4 10^3/uL (0.8-4.8) 08/17/21 16:37 Rich # (Auto) 1.0 10^3/uL (0.2-0.9) H 08/17/21 16:37 Eos # (Auto) 0.1 10^3/uL (0.0-0.8) 08/17/21 16:37 Baso # (Auto) 0.1 10^3/uL (0.0-0.1) 08/17/21 16:37 Nucleated RBC % (auto) 0 % 08/17/21 16:37 Nucleated RBCs # 0.0 /100WBC 08/17/21 16:37 Specimen Type Arterial 08/17/21 17:21 Sample Site Radial, left 08/17/21 17:21 ABG pH 7.43 (7.35-7.45) 08/17/21 17:21 ABG pCO2 32.9 mmHg (35-45) L 08/17/21 17:21 ABG pO2 88.3 mmHg (80.0-100.0) 08/17/21 17:21 ABG HCO3 21.6 mmol/L (22-26) L 08/17/21 17:21 ABG O2 Saturation 97.6 08/17/21 17:21 ABG Base Excess -2.1 mmol/L (-2.0-2.0) L 08/17/21 17:21 Sj Test Pos 08/17/21 17:21 Hematocrit 42.5 % (37-47) 08/17/21 17:21 Hgb O2 Saturation 94.7 % (95-100) L 08/17/21 17:21 Carboxyhemoglobin 2.1 %THgb (0.4-20.1) 08/17/21 17:21 Methemoglobin 0.8 % (0.4-1.5) 08/17/21 17:21 Total Hemoglobin 13.9 g/dL (12-16) 08/17/21 17:21 Sodium 141.0 mmol/L (131-143) 08/17/21 17:21 Potassium 3.6 mmol/L (3.5-5.0) 08/17/21 17:21 Glucose 114.0 mg/dL (70-115) 08/17/21 17:21 Ionized Calcium 1.2 mmol/L (1.1-1.4) 08/17/21 17:21 O2 Delivery Device Nc 08/17/21 17:21 FiO2 2.0 % 08/17/21 17:21 City Councilman ID Claaro 08/17/21 17:21 Sodium 137 mmol/L (136-145) 08/17/21 16:37 Potassium 3.7 mmol/L (3.5-5.1) 08/17/21 16:37 Chloride 100 mmol/L (98-107) 08/17/21 16:37 Carbon Dioxide 20 mmol/L (22-29) L 08/17/21 16:37 Anion Gap 20.7 (5-19) H 08/17/21 16:37 BUN 6 mg/dL (6-20) 08/17/21 16:37 Creatinine 0.8 mg/dL (0.5-0.9) 08/17/21 16:37 GFR Calculation 76.2 mL/min (90-130) L 08/17/21 16:37 Glucose 121 mg/dL (65-115) H 08/17/21 16:37 Calculated Osmolality 283 mOsm/kg (285-295) L 08/17/21 16:37 Lactic Acid 3.4 mmol/L (0.5-2.2) H 08/17/21 17:30 Lactic Acid (Sepsis) 2.8 mmol/L (0.5-2.2) H 08/17/21 19:09 Calcium 8.9 mg/dL (8.5-10.5) 08/17/21 16:37 Magnesium 1.8 mg/dL (1.7-2.3) 08/17/21 16:37 Total Bilirubin 0.2 mg/dL (0.15-1.2) 08/17/21 16:37 AST 28 U/L (0-32) 08/17/21 16:37 ALT 20 U/L (0-33) 08/17/21 16:37 Alkaline Phosphatase 93 IU/L (35-105) 08/17/21 16:37 Creatine Kinase 1056 U/L (26-192) H* 08/17/21 16:37 Total Protein 6.9 g/dL (6.6-8.7) 08/17/21 16:37 Albumin 4.2 g/dL (3.5-5.2) 08/17/21 16:37 Globulin 2.7 g/dL (1.3-4.6) 08/17/21 16:37 Lipase 42 U/L (13-60) 08/17/21 16:37 HCG, Qual Negative (Negative) 08/17/21 16:37 Urine Color Yellow (Yellow) 08/17/21 17:15 Urine Appearance Clear (CLEAR) 08/17/21 17:15 Urine pH 7 (5-7) 08/17/21 17:15 Ur Specific Noonan 1.005 (1.005-1.030) 08/17/21 17:15 Urine Protein Neg (Negative) 08/17/21 17:15 Urine Glucose (UA) Norm (Normal) 08/17/21 17:15 Urine Ketones Negative (Negative) 08/17/21 17:15 Urine Blood Neg (Negative) 08/17/21 17:15 Urine Nitrate Negative (Negative) 08/17/21 17:15 Urine Bilirubin Neg (Negative) 08/17/21 17:15 Urine Urobilinogen Norm mg/dL (Negative) 08/17/21 17:15 Ur Leukocyte Esterase Negative (Negative) 08/17/21 17:15 Salicylates < 0.3 mg/dL (3-10) L 08/17/21 16:37 Urine Opiates Screen Negative ng/mL (Negative) 08/17/21 17:15 Acetaminophen < 5.0 ug/mL (10-30) L 08/17/21 16:37 Ur Barbiturates Screen Negative ng/mL (Negative) 08/17/21 17:15 Ur Phencyclidine Scrn Negative ng/mL (Negative) 08/17/21 17:15 Ur Amphetamines Screen Negative ng/mL (Negative) 08/17/21 17:15 U Benzodiazepines Scrn Positive ng/mL (Negative) H 08/17/21 17:15 Urine Cocaine Screen Negative ng/mL (Negative) 08/17/21 17:15 U Marijuana (THC) Screen Negative ng/mL (Negative) 08/17/21 17:15 Ethyl Alcohol 105 mg/dL (0-10) H 08/18/21 03:51 Serum Ketones Negative (Negative) 08/17/21 17:30 Discharge Plan Discharge Patient Disposition: Home Clinical Impression: Alcoholic intoxication Condition: Stable Prescriptions: No Action magnesium hydroxide [Jamsion Milk of Magnesia] 400 mg/5 mL suspension 30 ml PO DAILY PRN (Reason: Constipation) 0RF acetaminophen [Tylenol Extra Strength] 500 mg tablet 1,000 mg PO Q6H PRN (Reason: Pain) 0RF Trelegy Ellipta 100-62.5-25 mcg blister with device 1 inh inhalation DAILY 0RF nicotine (polacrilex) 4 mg lozenge 4 mg BUCCAL Q1H PRN (Reason: nicotine cravings) Qty: 24 6RF Rx Instructions: May take one nicotine lozenge-do not exceed more than 20 oz/day or 5 oz in 6 hr diazepam [Valium] 2 mg tablet 2 mg PO BID PRN (Reason: anxiety) Qty: 60 2RF Rx Instructions: Take one tablet twice per day as needed for anxiety Geodon 80 mg capsule 80 mg PO QPM 0RF Rx Instructions: Take one capsule with dinner in evening, 500 jim of food Depakote 500 mg tablet,delayed release (DR/EC) 500 mg PO QPM 0RF Rx Instructions: Take one tablet at 7 pm Geodon 40 mg capsule 40 mg PO QAM 0RF Rx Instructions: Take one capsule every morning with 500 jim of food melatonin 3 mg capsule 3 mg PO BEDTIME 0RF Rx Instructions: Take one capsule at bedtime as needed for sleep Discharge Orders: Discharge ED (Routine); Ordered 08/18/21 Ordered By: Feroz Gaviria Referrals: Tyson Velasco MD [Primary Care Provider] - 4-7 days Patient Instructions: Alcohol Intoxication (ED) Activity Restrictions/Additional Instructions: Avoid alcohol and other substances. Return for worsening mental status, any thoughts or wishes to harm your self or anyone else, language or vision problems, weakness, other concerning symptoms. Coding Level of Care Code ED Fern Picker for Chg Fwd Exam Comprehensive
[2021-08-17 17:07] VITALS: PULSE 91; RESP 30; TEMP 36.7; O2SAT 94; BMI 43.3
[2021-08-17 17:12] LABS: Basophils # 0.1 10^3/uL (0.0-0.1); Basophils % 0.7 %; Eosinophils # 0.1 10^3/uL (0.0-0.8); Eosinophils % 0.9 %; Hematocrit 44.3 % (37.0-47.0); Hemoglobin 14.3 g/dL (11.5-15.3); Lymphocytes # 3.4 10^3/uL (0.8-4.8); Lymphocytes % 24.5 %; Mean Corpuscular HGB Conc 32.3 g/dL (30.0-36.0); Mean Corpuscular Hemoglobin 27.4 pg (28.0-34.0); Mean Corpuscular Volume 84.9 fl (81-99); Mean Platelet Volume 10.6 fL (7.4-10.4); Monocytes % 6.9 %; Neutrophils # 9.17 10^3/uL (1.8-7.7); Neutrophils % 66.6 %; Nucleated Red Blood Cells % 0 %; Platelet Count 304 10^3/cmm (130-400); Red Blood Count 5.22 10^6/uL (4.1-5.3); Red Cell Distribution Width 13.8 % (12.1-15.1); White Blood Count 13.8 10^3/uL (4.0-10.0)
[2021-08-17 17:20] LABS: Add Urine Microscopic? NO; Charge for UA Resulting for Rev
[2021-08-17 17:27] LABS: Specific Gravity, Urine 1.005 (1.005-1.030); Urine Appearance Clear (CLEAR); Urine Color Yellow (Yellow); pH Urine 7 (5-7)
[2021-08-17 17:28] LABS: Bilirubin Urine Neg (Negative); Blood Urine Neg (Negative); Glucose Urine UA Norm (Normal); Ketones Urine Negative (Negative); Leukocyte Esterase Urine Negative (Negative); Nitrate Urine Negative (Negative); Protein Urine Neg (Negative); Urobilinogen Urine Norm (Negative)
[2021-08-17 17:29] LABS: ABG PCO2 32.9 mmHg (35-45); ABG PH Result 7.43 (7.35-7.45); Arterial Blood Gas Hematocrit 42.5 % (37-47); Base Excess ABG -2.1 mmol/L (-2.0-2.0); Blood Gas Allen Test Pos; Blood Gas Sample Site Radial, left; Blood Gas Sample Type Arterial; Carboxyhemoglobin 2.1 %THgb (0.4-20.1); HCO3 ABG 21.6 mmol/L (22-26); HGB O2 Sat 94.7 % (95-100); Ionized Calcium Level - ABG 1.2 mmol/L (1.1-1.4); Methemoglobin 0.8 % (0.4-1.5); Oxygen Device NC; Oxygen Saturation ABG 97.6; PO2 ABG 88.3 mmHg (80.0-100.0); Potassium Level - ABG 3.6 mmol/L (3.5-5.0); Total Hemoglobin 13.9 g/dL (12-16)
[2021-08-17 17:32] LABS: Amphetamines Screen Urine Negative (Negative); Barbiturates Screen Urine Negative (Negative); Benzodiazepines Screen Urine Positive (Negative); Cocaine Screen Urine Negative (Negative); Opiate Screen Urine Negative (Negative); PCP Screen Urine Negative (Negative); THC Screen Urine Negative (Negative)
[2021-08-17 17:39] LABS: Alanine Aminotransferase 20 U/L (0-33); Albumin Level 4.2 g/dL (3.5-5.2); Alkaline Phosphatase 93 IU/L (35-105); Anion Gap 20.7 (5-19); Aspartate Amino Transferase 28 U/L (0-32); Blood Urea Nitrogen 6 mg/dL (6-20); Calcium 8.9 mg/dL (8.5-10.5); Carbon Dioxide 20 mmol/L (22-29); Chloride 100 mmol/L (98-107); Globulin 2.7 g/dL (1.3-4.6); Glomerular Filtration Rate 76.2 mL/min (90-130); Glucose 121 mg/dL (65-115); Lipase 42 U/L (13-60); Magnesium 1.8 mg/dL (1.7-2.3); Osmolality Calculated 283 mOsm/kg (285-295); Potassium 3.7 mmol/L (3.5-5.1); Sodium 137 mmol/L (136-145); Total Bilirubin 0.2 mg/dL (0.15-1.2); Total Protein 6.9 g/dL (6.6-8.7)
[2021-08-17 18:00] LABS: Lactic Sepsis W/Reflex 3.4 mmol/L (0.5-2.2)
[2021-08-17 18:02] LABS: Ketone (Acetest) Serum Negative (Negative)
--- NOTE | 2021-08-17 18:07 | ECG_ITS ---
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 Measurements Intervals [place] Rate: 84 P: 72 IL: 152 QRS: -7 QRSD: 87 T: 52 QT: 376 QTc: 446 Interpretive Statements SINUS RHYTHM LOW QRS VOLTAGE IN PRECORDIAL LEADS [QRS DEFLECTION < 1.0 mV IN CHEST LEADS] POSSIBLE ANTERIOR MYOCARDIAL INFARCTION , OF INDETERMINATE AGE [30 ms Q WAVE IN V3/V4, OR R < 0.2 mV IN V4] Compared to ECG 06/06/2021 10:53:57 Left-axis deviation no longer present Myocardial infarct finding still present Electronically Signed On 08-19-2021 9:13:03 CDT by Tobin Sims M.D. [id number]
[2021-08-17 18:14] LABS: Acetaminophen < 5.0 ug/mL (10-30); Salicylate < 0.3 mg/dL (3-10)
[2021-08-17 18:15] LABS: Alcohol Level 322 mg/dL (0-10); Creatine Phosphokinase 1056 U/L (26-192)
[2021-08-17 18:33] LABS: HCG, Serum Qual Negative (Negative)
[2021-08-17] MEDS: sodium chloride 0.9% 1,000 ML 999 ML IV ×2 (18:33→22:59)
[2021-08-17 18:59] LABS: Reflex Lactate Order REFLEX LACTIC ORDERD
--- NOTE | 2021-08-17 19:03 | PC.NURSE ---
REPORT GIVEN TO AKIL GARCIA ASSUMED CARE.
--- NOTE | 2021-08-17 19:26 | PC.NURSE ---
Asked patient if i could pull blood sample from her IV and explained what I was doing. The patient said okay just do it and then repeated that sentence 4 more times as i was drawing blood.
[2021-08-17 19:31] LABS: Lactic Acid level (Lactate) 2.8 mmol/L (0.5-2.2)
[2021-08-17 20:36] VITALS: BP 102/60; PULSE 102; RESP 12; TEMP 36.9; O2SAT 99
[2021-08-17 22:49] VITALS: BP 89/56; PULSE 88; RESP 14; O2SAT 97
[2021-08-17 23:17] LABS: Alcohol Level 234 mg/dL (0-10)
[2021-08-17 23:19] VITALS: BP 98/69; PULSE 95; RESP 13; O2SAT 99
[2021-08-17 23:53] VITALS: BP 91/62; PULSE 87; RESP 17; O2SAT 97
[2021-08-18] MEDS: nicotine 21 mg Patch 1 PATCH TRANSDERMA (02:20)
[2021-08-18] MEDS: LORazepam 2 mg/mL INJ 1 mL 1 MG IVP ×2 (02:21)
--- NOTE | 2021-08-18 02:21 | PC.NURSE ---
Pt. original order for ativan was 1mg. However after removing one bottle from pyxis, he changed order to 2mg of ativan. I gave her the complete amount of 2mg from one bottle and charted each 1mg on each chart. Charge nurse Eusebio leal RN called pharmacy to let them know and they said to waste in pyxis as it asked.
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
[2021-08-18 03:28] VITALS: BP 105/70; PULSE 101; RESP 20; O2SAT 95
--- NOTE | 2021-08-18 03:30 | PC.NURSE ---
Pt. asks to smoke a cigarette or eat candy repetitively. I have explained to the patient, that due to her alcohol intoxication she has been sick to her stomach and vomiting and can not have anything to eat or drink at this time. Pt. states that she has not been sick and she wants something.
[2021-08-18 04:33] LABS: Alcohol Level 105 mg/dL (0-10)
--- NOTE | 2021-08-18 05:38 | PC.NURSE ---
Zaira Young RN, called from [facility]. Nurse states that they have been looking for her all night. I explained that her guardian was called on her arrival by registration and given permission to treat her. Nurse states that she does not know who that is. I explained to the nurse that Rylee Timmons is listed as her gaurdian on her chart and that's who was called. The nurse states that the patient checked out at 1300 and they did not see her again.
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
== END 2021-08-18 06:43 | disposition home or self-care (01) ==
PROVIDERS: Family Medicine; Emergency Provider Emergency Medicine; PCP Family Medicine
DX: F10.129 Alcohol abuse with intoxication, unspecified (principal); Y90.8 Blood alcohol level of 240 mg/100 ml or more; F17.210 Nicotine dependence, cigarettes, uncomplicated; R00.0 Tachycardia, unspecified; I95.9 Hypotension, unspecified
CPT/HCPCS: 36600; 51702; 70450; 71045; 80051; 80053; 80306; 80307; 81003; 82009; 82330; 82550; 82805; 83605; 83690; 83735; 84703; 85025; 93005; 96361; 96374; 99284; J2060; J7030

== ENCOUNTER 2021-11-07 13:39 | Outpatient (CLI) | payer MEDICARE, MEDICAID, SELFPAY ==
--- NOTE | 2021-11-07 13:44 | MM_ITS ---
WS: [id number] BILATERAL SCREENING DIGITAL BREAST TOMOSYNTHESIS MAMMOGRAM WITH CAD HISTORY: SCREENING COMPARISON: 02/29/2020 and 02/27/2019 Bilateral CC and MLO views with tomosynthesis and synthetic mammography submitted. Computer aided det ection analyzed. Breast composition: There are scattered areas of fibroglandular density. No suspicious masses, microc alcifications or architectural distortion. MM/[id number] IMPRESSION: BI-RADS: 1-Negative FOLLOW UP: 1 Year Follow-up
== END 2021-11-07 13:40 | disposition home or self-care (01) ==
LOC: RAD 13:41
PROVIDERS: PCP Family Medicine; Visit Provider Family Medicine
DX: Z12.31 Encounter for screening mammogram for malignant neoplasm of breast (principal)
CPT/HCPCS: 77063; 77067

== ENCOUNTER → 2021-12-05 10:06 | Outpatient (BNVA) | payer MEDICARE, MEDICAID, SELFPAY | PROVIDERS: PCP Family Medicine; Visit Provider Nurse Practitioner Psychiatric/Mental Health | DX: Z03.89 Encounter for observation for other suspected diseases and conditions ruled out (principal); Z79.899 Other long term (current) drug therapy; F25.0 Schizoaffective disorder, bipolar type; F20.0 Paranoid schizophrenia; R41.83 Borderline intellectual functioning; F17.210 Nicotine dependence, cigarettes, uncomplicated | CPT/HCPCS: 80053; 80164 ==

== ENCOUNTER → 2022-09-04 12:30 | Outpatient (BNVA) | payer MEDICARE, MEDICAID, OTHER, SELFPAY | PROVIDERS: PCP Family Medicine; Visit Provider Nurse Practitioner Psychiatric/Mental Health | DX: Z79.899 Other long term (current) drug therapy (principal) | CPT/HCPCS: 80053; 80061; 80164; 83036 ==

== ENCOUNTER 2022-11-20 11:33 | Outpatient (CLI) | payer MEDICARE, SELFPAY ==
--- NOTE | 2022-11-20 11:38 | MM_ITS ---
WS: [id number] BILATERAL SCREENING DIGITAL TOMOSYNTHESIS MAMMOGRAM WITH CAD HISTORY: SCREENING COMPARISON: 11/07/2021 and 02/29/2020 Bilateral CC and MLO views with tomosynthesis and synthetic mammography submitted. Computer aided det ection analyzed. Breast composition: There are scattered areas of fibroglandular density. No suspicious masses, microc alcifications or architectural distortion. MM/[id number] IMPRESSION: BI-RADS: 1-Negative FOLLOW UP: 1 Year Follow-up
== END 2022-11-20 11:34 | disposition home or self-care (01) ==
LOC: RAD 11:35
PROVIDERS: PCP Family Medicine; Visit Provider Physician Assistant
DX: Z12.31 Encounter for screening mammogram for malignant neoplasm of breast (principal)
CPT/HCPCS: 77063; 77067

== ENCOUNTER → 2023-03-26 13:26 | Outpatient (BNVA) | payer MEDICARE, OTHER, SELFPAY | PROVIDERS: PCP Family Medicine; Visit Provider Nurse Practitioner Psychiatric/Mental Health | DX: Z79.899 Other long term (current) drug therapy (principal) | CPT/HCPCS: 80053 ==

== ENCOUNTER → 2023-08-13 14:33 | Outpatient (BNVA) | payer MEDICARE, OTHER, SELFPAY | PROVIDERS: PCP Family Medicine; Visit Provider Nurse Practitioner Psychiatric/Mental Health | DX: Z79.899 Other long term (current) drug therapy (principal) | CPT/HCPCS: 80053; 80061; 83036 ==

== ENCOUNTER 2024-06-13 17:44 | Emergency (ER) | payer MEDICARE, MEDICAID, SELFPAY ==
[2024-06-13 17:45] VITALS: BP 154/120; PULSE 72; RESP 17; TEMP 37.2; O2SAT 95; BMI 41.9
--- NOTE | 2024-06-13 17:46 | XRR_ITS ---
PROCEDURE INFORMATION: Exam: XR Chest Exam date and time: 06/13/2024 5:51 PM Age: 53 years old Clinical indication: Pain; Chest pressure; Additional info: Chest pain TECHNIQUE: Imaging protocol: Radiologic exam of the chest. Views: 1 view. COMPARISON: CR XR chest 1V portable [id number] 08/17/2021 5:25 PM FINDINGS: Lungs: Subtle opacities in the left lung base. Pleural spaces: Unremarkable. No pleural effusion. No pneumothorax. Heart/Mediastinum: Unremarkable. No cardiomegaly. Bones/joints: Unremarkable. XR/XR chest 1V portable [id number] IMPRESSION: Subtle opacities in the left lung base.
--- NOTE | 2024-06-13 17:48 | ECG_ITS ---
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 Measurements Intervals [place] Rate: 69 P: 60 [place]: 158 QRS: -21 QRSD: 74 T: 48 QT: 387 QTc: 416 Interpretive Statements SINUS RHYTHM LOW QRS VOLTAGE IN PRECORDIAL LEADS [QRS DEFLECTION < 1.0 mV IN CHEST LEADS] POSSIBLE ANTERIOR MYOCARDIAL INFARCTION , PROBABLY OLD [30 ms Q WAVE IN V3/V4, OR R < 0.2 mV IN V4] Compared to ECG 08/17/2021 18:48:46 No significant changes Electronically Signed On 06-15-2024 11:18:00 PROGRAM ADMIN by Sg Florence M.D. [id number]
[2024-06-13 17:54] LABS: Basophils # 0.1 10^3/uL (0.0-0.1); Basophils % 0.7 %; Eosinophils # 0.2 10^3/uL (0.0-0.8); Eosinophils % 2.8 %; Hematocrit 45.1 % (36-47); Lymphocytes # 3.3 10^3/uL (0.8-4.8); Lymphocytes % 37.9 %; Mean Corpuscular HGB Conc 32.4 g/dL (30-55); Mean Corpuscular Hemoglobin 28.2 pg (27-33); Mean Corpuscular Volume 87.1 fl (85-98); Mean Platelet Volume 9.7 fL (7.4-10.4); Monocytes # 0.3 10^3/uL (0.2-0.9); Monocytes % 3.8 %; Neutrophils # 4.75 10^3/uL (1.8-7.7); Neutrophils % 54.6 %; Nucleated Red Blood Cells % 0 %; Platelet Count 291 10^3/cmm (157-399); Red Blood Count 5.18 10^6/uL (3.85-5.65); Red Cell Distribution Width 13.9 % (12.1-15.1)
[2024-06-13 18:13] LABS: Troponin(5th) Baseline < 6 ng/L (0-10)
[2024-06-13 18:17] LABS: Alanine Aminotransferase 28 U/L (0-33); Albumin Level 4.1 g/dL (3.5-5.2); Alkaline Phosphatase 91 U/L (35-105); Anion Gap 15.1 (5-19); Aspartate Amino Transferase 22 U/L (0-32); Blood Urea Nitrogen 10 mg/dL (6-20); Calcium 9.1 mg/dL (8.5-10.5); Carbon Dioxide 25 mmol/L (22-29); Chloride 104 mmol/L (98-107); Creatinine Clr Calc Pharmacy 95.5242; Globulin 3.3 g/dL (1.3-4.6); Glomerular Filtration Rate 65.8 mL/min (90-130); Glucose 140 mg/dL (65-115); Osmolality Calculated 291 mOsm/kg (285-295); Potassium 4.1 mmol/L (3.5-5.1); Sodium 140 mmol/L (136-145); Total Bilirubin 0.3 mg/dL (0.15-1.2); Total Protein 7.4 g/dL (6.6-8.7)
--- NOTE | 2024-06-13 18:21 | ED_ITS ---
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 It went on for minutes. They called 911. By the time EMS arrived there patient says she was feeling much better but they brought her in to be evaluated. Per the patient does not have a history of any chest pain or cardiac abnormalities. Patient is chest pain-free in the ER. Related Data Home Medications Medication Instructions Recorded Confirmed acetaminophen 500 mg tablet 1,000 mg PO Q6H PRN Pain 05/19/19 03/17/24 (Tylenol Extra Strength) magnesium hydroxide 400 mg/5 mL 30 ml PO DAILY PRN Constipation 05/19/19 03/17/24 oral suspension (Jamison Milk of MagnLawdingo) fluticasone fur. 100 mcg-umeclid 1 inh inhalation DAILY 09/25/20 03/17/24 62.5 mcg-vilant 25 mcg inhalat.powder (Trelegy Ellipta) Lactobacill 1 cap PO DAILY 05/22/22 03/17/24 acidophilus-L.helvetic-B.bifidum 250 million cell capsule (Acidophilus Probiotic Complex) aluminum-mag hydroxide-simethicone 20 ml PO DAILY PRN 05/22/22 03/17/24 200 mg-200 mg-20 mg/5 mL oral susp hydroxyzine pamoate 25 mg capsule 25 mg PO BID PRN pain 05/22/22 03/17/24 multivitamin 1 tab PO DAILY 05/22/22 03/17/24 psyllium 2 tsp PO BID 05/22/22 03/17/24 Previous Rx's Medication Instructions Recorded nicotine (polacrilex) 4 mg buccal 4 mg buccal Q1H PRN nicotine 02/11/24 lozenge cravings #24 ea benztropine 1 mg tablet 1 mg PO .evening #30 tabs 03/17/24 fluphenazine HCl 1 mg tablet 1 mg PO .morning #30 tabs 03/17/24 propranolol 10 mg tablet 10 mg PO BID anxiety #60 tabs 03/17/24 trazodone 50 mg tablet 50 mg PO BEDTIME PRN insomnia #30 03/17/24 tabs ziprasidone HCl 20 mg capsule 20 mg PO .evening #30 caps 03/17/24 (Geodon) ziprasidone HCl 40 mg capsule 40 mg PO .noon #30 caps 03/17/24 (Geodon) ziprasidone HCl 80 mg capsule 80 mg PO .evening #30 caps 05/08/24 (Geodon) diazepam 5 mg tablet (Valium) 5 mg PO BID PRN anxiety/agitation 05/24/24 #60 tabs Allergies Allergy/AdvReac Type Severity Reaction Status Date / Time No Known Allergies Allergy Verified 06/13/24 17:44 Review of Systems 2 General: Reports: 10 or more systems reviewed and unremarkable except in HPI and below PFSH ED 2 PFSH: Medical History Drug induced akathisia Drug-induced tardive dystonia Psychiatric care Borderline intellectual functioning Cigarette nicotine dependence Schizoaffective disorder, bipolar type delivery delivered three times Social History Smoking and tobacco/nicotine status: current every day tobacco/nicotine user cigarettes Packs smoked per day: 1 Years cigarettes smoked: 20 Quit status (tobacco/nicotine): considering quitting Second hand smoke exposure: Yes Physical Exam 2 Const: COMMON NORMALS: no acute distress, average body habitus, patient oriented x3, no limitations, healthy appearing, alert and well nourished HENMT: COMMON NORMALS: normocephalic, atraumatic, hearing grossly normal bilaterally, external ears normal, Normal external nose present and moist oral mucous membranes HEAD & SCALP: normocephalic and atraumatic NOSE: Normal external nose present EXTERNAL EAR: Yes external ears normal Neck/C-Spine: COMMON NORMALS: no JVD Chest: COMMONS NORMALS: normal inspection of the chest and normal palpation of entire chest wall Resp: COMMON NORMALS: normal respiratory effort, No retractions, No use of accessory muscles and clear to auscultation bilaterally AUSCULTATION: clear to auscultation bilaterally Cardio: COMMON NORMALS: no JVD, regular rate, regular rhythm, S1 normal heart sound present, S2 normal heart sound present, No gallops present (Cardio), No clicks present (Cardio) and No rub (Cardio) RATE: regular rate RHYTHM: r egular rhythm HEART SOUNDS: S1 normal heart sound present and S2 normal heart sound present GI: COMMON NORMALS: Normal to inspection, nondistended, normoactive bowel sounds present, Soft to palpation, non-tender, No hepatosplenomegaly present and no masses PALPATION: Yes Soft to palpation and Yes No hepatosplenomegaly present Neuro: COMMON NORMALS: patient oriented x3 SENSORIUM/ORIENTATION: Yes alert Course 2 Vital Signs: Vital signs: Vital Signs Temperature 99.0 F 06/13/24 17:45 Pulse Rate 54 L 06/13/24 20:30 Respiratory Rate 19 H 06/13/24 20:30 Blood Pressure 123/86 06/13/24 20:30 Pulse Oximetry 94 06/13/24 20:30 Oxygen Delivery Me thod Room Air 06/13/24 19:00 MDM - Chest Pain Medical Decision Making Patient serial lab work, troponins, EKGs, influenza COVID negative but RSV positive. Chest x-ray showed subtle opacities in left lung base however with everything else essentially been negative we will not treat at this time. Will discharge. Patient to follow-up with PCP in approximately 7 days. Medical Records I reviewed the patient's medical records. Lab Data I reviewed the patient's lab results. 06/13/24 17:30 06/13/24 17:30 Radiology Impressions Chest X-Ray 06/13/24 17:46 IMPRESSION: Subtle opacities in the left lung base. Laboratory Results WBC 8.70 10^3/uL (3.29-11.43) 06/13/24 17:30 RBC 5.18 10^6/uL (3.85-5.65) 06/13/24 17:30 Hgb 14.60 g/dL (11.27-16.99) 06/13/24 17:30 Hct 45.1 % (36-47) 06/13/24 17:30 MCV 87.1 fl (85-98) 06/13/24 17:30 MCH 28.2 pg (27-33) 06/13/24 17:30 MCHC 32.4 g/dL (30-55) 06/13/24 17:30 RDW 13.9 % (12.1-15.1) 06/13/24 17:30 Plt Count 291 10^3/cmm (157-399) 06/13/24 17:30 MPV 9.7 fL (7.4-10.4) 06/13/24 17:30 Neut % (Auto) 54.6 % 06/13/24 17:30 Lymph % (Auto) 37.9 % 06/13/24 17:30 Mcdonald % (Auto) 3.8 % 06/13/24 17:30 Eos % (Auto) 2.8 % 06/13/24 17:30 Baso % (Auto) 0.7 % 06/13/24 17:30 Neut # (Auto) 4.75 10^3/uL (1.8-7.7) 06/13/24 17:30 Lymph # (Auto) 3.3 10^3/uL (0.8-4.8) 06/13/24 17:30 Mcdonald # (Auto) 0.3 10^3/uL (0.2-0.9) 06/13/24 17:30 Eos # (Auto) 0.2 10^3/uL (0.0-0.8) 06/13/24 17:30 Baso # (Auto) 0.1 10^3/uL (0.0-0.1) 06/13/24 17:30 Nucleated RBC % (auto) 0 % 06/13/24 17:30 Nucleated RBCs # 0.0 /100WBC 06/13/24 17:30 Sodium 140 mmol/L (136-145) 06/13/24 17:30 Potassium 4.1 mmol/L (3.5-5.1) 06/13/24 17:30 Chloride 104 mmol/L (98-107) 06/13/24 17:30 Carbon Dioxide 25 mmol/L (22-29) 06/13/24 17:30 Anion Gap 15.1 (5-19) 06/13/24 17:30 BUN 10 mg/dL (6-20) 06/13/24 17:30 Creatinine 0.9 mg/dL (0.5-0.9) 06/13/24 17:30 GFR Calculation 65.8 mL/min (90-130) L 06/13/24 17:30 Glucose 140 mg/dL (65-115) H 06/13/24 17:30 Calculated Osmolality 291 mOsm/kg (285-295) 06/13/24 17:30 Calcium 9.1 mg/dL (8.5-10.5) 06/13/24 17:30 Total Bilirubin 0.3 mg/dL (0.15-1.2) 06/13/24 17:30 AST 22 U/L (0-32) 06/13/24 17:30 ALT 28 U/L (0-33) 06/13/24 17:30 Alkaline Phosphatase 91 U/L (35-105) 06/13/24 17:30 Troponin T Baseline < 6 ng/L (0-10) 06/13/24 17:30 Troponin T 120 Minute 6.09 ng/L (0-10) 06/13/24 19:40 Delta Troponin T 0.11408 ABS# (0-10) 06/13/24 19:40 Total Protein 7.4 g/dL (6.6-8.7) 06/13/24 17:30 Albumin 4.1 g/dL (3.5-5.2) 06/13/24 17:30 Globulin 3.3 g/dL (1.3-4.6) 06/13/24 17:30 Coronavirus (PCR) Negative (Negative) 06/13/24 19:04 Influenza A (PCR) Negative (Negative) 06/13/24 19:04 Influenza Type B (PCR) Negative (Negative) 06/13/24 19:04 RSV (PCR) Positive (Negative) A 06/13/24 19:04 All radiology interpretation(s) finalized by discharge Discharge Plan Discharge Patient Disposition: Home Clinical Impression: Upper respiratory infection, Atypical chest pain Condition: Stable Prescriptions: No Action magnesium hydroxide [Jamison Milk of Magnesia] 400 mg/5 mL suspension 30 ml PO DAILY PRN (Reason: Constipation) acetaminophen [Tylenol Extra Strength] 500 mg tablet 1,000 mg PO Q6H PRN (Reason: Pain) Trelegy Ellipta 100-62.5-25 mcg blister with device 1 inh inhalation DAILY multivitamin Tablet 1 tab PO DAILY psyllium Powder 2 tsp PO BID Rx Instructions: mix into at least 8 oz of water or juice before administering alum-mag hydroxide-simeth 200-200-20 mg/5 mL suspension 20 ml PO DAILY PRN Rx Instructions: for GERD hydroxyzine pamoate 25 mg capsule 25 mg PO BID PRN (Reason: pain) Rx Instructions: take 1 tablet by mouth twice a day as needed for pain Acidophilus Probiotic Complex 250 million cell capsule 1 cap PO DAILY nicotine (polacrilex) 4 mg lozenge 4 mg BUCCAL Q1H PRN (Reason: nicotine cravings) Qty: 24 6RF Rx Instructions: May take one nicotine lozenge-do not exceed more than 20 oz/day or 5 oz in 6 hr benztropine 1 mg tablet 1 mg PO .evening Qty: 30 6RF Rx Instructions: Take one tablet every evening fluphenazine HCl 1 mg tablet 1 mg PO .morning Qty: 30 6RF Rx Instructions: Take one tablet every morning propranolol 10 mg tablet 10 mg PO BID Qty: 60 6RF Rx Instructions: Take one tablet twice per day trazodone 50 mg tablet 50 mg PO BEDTIME PRN (Reason: insomnia) Qty: 30 3RF Rx Instructions: Take one tablet at bedtime as needed for sleep ziprasidone HCl [Geodon] 40 mg capsule 40 mg PO .noon Qty: 30 6RF Rx Instructions: Take one capsule at noon with 500 calorie meal ziprasidone HCl [Geodon] 20 mg capsule 20 mg PO .evening Qty: 30 6RF Rx Instructions: Take one capsule in evening at dinner, with 80 mg capsule, total dose 100 mg, give with 500 calorie meal ziprasidone HCl [Geodon] 80 mg capsule 80 mg PO .evening Qty: 30 6RF Rx Instructions: Take one capsule with 20 mg capsule, total dose 100 mg, with dinner in evening, 500 jim of food diazepam [Valium] 5 mg tablet 5 mg PO BID PRN (Reason: anxiety/agitation) Qty: 60 2RF Rx Instructions: Take one tablet twice per day as needed for anxiety/agitation Discharge Orders: Discharge ED (Routine); Ordered 06/13/24 Ordered By: Regino Carrillo Referrals: Tyson Velasco MD [Primary Care Provider] - 1 week Patient Instructions: Chest Pain - Noncardiac, Upper Respiratory Infection - Adult, RSV (Respiratory Syncytial Virus) Infection (ED) Activity Restrictions/Additional Instructions: Thank you for choosing [facility] for your healthcare needs today. Please realize that you were seen in the emergency department and that we are providing you with an emergency medical screening exam and this may not be a complete and all exclusive of all testing and/or medical workup we may need to determine your element or severity of your illness. It is very important that you follow-up as instructed with your primary care provider or specialist for the additional evaluation and to discuss your medical treatment plan. You may return to the emergency department should you have concerns or if your condition changes or worsens in any way. Coding Level of Care Code ED Supervisor Sewing Department for [facility]
[2024-06-13 19:00] VITALS: BP 149/82; PULSE 74; RESP 20; O2SAT 96
[2024-06-13 19:30] VITALS: BP 146/72; PULSE 64; RESP 19; O2SAT 95
--- NOTE | 2024-06-13 19:45 | ECG_ITS ---
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 Measurements Intervals [place] Rate: 55 P: 65 [place]: 195 QRS: -23 QRSD: 77 T: 47 QT: 429 QTc: 412 Interpretive Statements SINUS BRADYCARDIA POSSIBLE ANTERIOR MYOCARDIAL INFARCTION , OF INDETERMINATE AGE [30 ms Q WAVE IN V3/V4, OR R < 0.2 mV IN V4] INTERPRETATION BASED ON A DEFAULT AGE OF 40 YEARS Compared to ECG 06/13/2024 17:48:06 Sinus rhythm no longer present Myocardial infarct finding still present Electronically Signed On 06-17-2024 13:45:20 SHUTTLE FINAL INSPECTOR by Sg Florence M.D. [email or web address]
[2024-06-13 20:00] VITALS: BP 146/96; PULSE 55; RESP 16; O2SAT 93
[2024-06-13 20:07] LABS: Troponin 5 2HR 6.09 ng/L (0-10); Troponin 5 2HR Delta 0.09001 ABS# (0-10)
[2024-06-13 20:20] LABS: Covid PCR NEGATIVE (Negative); Influenza A NEGATIVE (Negative); Influenza B NEGATIVE (Negative)
[2024-06-13 20:30] VITALS: BP 123/86; PULSE 54; RESP 19; O2SAT 94
[2024-06-13 20:43] LABS: Respiratory Syncytial Virus Ce POSITIVE (Negative)
[2024-06-13 21:57] VITALS: BP 123/86; PULSE 63; O2SAT 93
== END 2024-06-13 20:45 | disposition home or self-care (01) ==
PROVIDERS: Emergency Provider Emergency Medicine; PCP Family Medicine
DX: J06.9 Acute upper respiratory infection, unspecified (principal); R07.89 Other chest pain; Z11.52 Encounter for screening for COVID-19; F17.210 Nicotine dependence, cigarettes, uncomplicated
CPT/HCPCS: 36415; 71045; 80053; 84484; 85025; 87637; 93005; 99285

== ENCOUNTER → 2024-07-14 14:30 | Outpatient (BNVA) | payer MEDICARE, OTHER, SELFPAY | PROVIDERS: PCP Family Medicine; Visit Provider Nurse Practitioner Psychiatric/Mental Health | DX: Z79.899 Other long term (current) drug therapy (principal) | CPT/HCPCS: 80061; 83036 ==

== ENCOUNTER 2024-08-08 09:46 | Outpatient (CLI) | payer MEDICARE, SELFPAY ==
--- NOTE | 2024-08-08 09:52 | CT_ITS ---
WS: [id number] LDCT LUNG CANCER SCREENING TECHNIQUE: Noncontrast CT of the chest with coronal and sagittal reformatted images. CLINICAL INFORMATION: NICOTINE DEPENDENCE,CIGARETTES COMPARISON: None. DLP: 136.52 mGy.cm DIvol: Mean CTDIvol: 3.70 (mGy) All CT scans at [facility] use at least one of these dose optimization techniques: automated exposure control; mA and/or kV adjustment per patient size (includes targeted exams where dose is matched to clinical indication); or iterative reconstruction. FINDINGS: No suspicious pulmonary parenchymal abnormalities. Normal caliber thoracic aorta. No mediastinal or hilar lymphadenopathy. No axillary lymphadenopathy. Calcified LEFT hilar lymph nodes. Calcified granuloma LEFT upper lobe. Large calcified laminated gallstone. Small esophageal hiatal hernia. Splenic granulomas. Adrenal glands are normal. CT/CT lung screening [id number] IMPRESSION: LUNG-RADS: 2S-Benign Appearance or Behavior with Significant Findings Large densely calcified gallstone. This can be followed up with ultrasound. FOLLOW UP: 12 Month: Continue annual screening with LDCT
== END 2024-08-08 09:47 | disposition home or self-care (01) ==
PROVIDERS: PCP Family Medicine; Visit Provider Family Medicine
DX: Z12.2 Encounter for screening for malignant neoplasm of respiratory organs (principal); F17.210 Nicotine dependence, cigarettes, uncomplicated; I89.8 Other specified noninfective disorders of lymphatic vessels and lymph nodes; J84.10 Pulmonary fibrosis, unspecified; K80.20 Calculus of gallbladder without cholecystitis without obstruction; R93.3 Abnormal findings on diagnostic imaging of other parts of digestive tract; K44.9 Diaphragmatic hernia without obstruction or gangrene; D73.89 Other diseases of spleen
CPT/HCPCS: 71271

== ENCOUNTER 2024-12-26 17:54 | Emergency (ER) | payer OTHER, MEDICAID, SELFPAY ==
--- OUTSIDE RECORDS SUMMARY | 2018-01-04 08:50 | XMS_ITS | Continuity of Care Document ---
Author Organization [facility] Address [address] [place] [address] Phone Care Team Providers Care Library Assistant Name Role Phone Flavio Ramires DO Unavailable [...] Planing-Fou r Or More Anterior (Excluding Final Tenriism) M Local Anesthesia Local Anesthesia Comprehensive Periodontal [...] Copied on Encounter [facility], [address] [facility], [place], [id number], [place] tel:[phone] [facility] No Information Keyla Muniz. [address], [id number] [facility] [place], [id number], [place]. tel:[phone] [facility], [address] [place], [place] [address]atio ns [facility], [place], [id number], [place] tel:[phone] [facility] Encounter for dental exam and cleaning w/o abnormal findings 8 Caitlin Fisher. [address], [id number] [facility] [place], [id number], [place]. tel:[phone] Referring Provider: Crispin Mcrae Dr [id number] [place], [address]. tel:[phone] ing Provider: Crispin Mcrae Communicatio osmany Conner [id number] , [place], [address]. tel:[phone] OFFICE/OUTPA TIENT VISIT, EST [facility], [address] [place], [id number], [place] tel:[phone] [facility] Schizophreni aOther stimulant dependence, in remissionAlc ohol dependence, in remissionTob acco useBody mass index (BMI) 40.0-44.9, adult 8 Keyla Muniz. [address], [id number], [place], [id number], [place]. tel:[phone] Referring Provider: Flavio Ramires, [address] [id number] , [place], [address]. tel:[phone] [facility], [address], [place], [id number], [place] tel:[phone] [facility] No Information 8 Keyla Muniz. [address], [id number] 0, [place], [id number], [place]. tel:[phone] [facility], [address], [place], [id number], [place] tel:[phone] [facility] No Information 8 Keyla Muniz. [address], [id number] 0, [place], [id number], [place]. tel:[phone] [facility], [address], [place], [id number], [place] tel:[phone] [facility] Dental Encounter for dental exam and cleaning w/o abnormal findings 8 Caitlin Fisher. [address], [id number] [facility] [place], [id number], [place]. tel:[phone] Referring Provider: Natalia Tucker, [address] [id number] , [place], [address]. tel:[phone] OFFICE/OUTPA TIENT VISIT, EST [facility], [address], [place], [id number], [place] tel:[phone] [facility] Schizophreni aOther stimulant dependence, in remissionAlc ohol dependence, in remissionTob acco useBody mass index (BMI) 40.0-44.9, adult May-0 8 Keyla Muniz. [address], [id number], [place], [id number], [place]. tel:[phone] Referring Provider: Flavio Ramires, [address] [id number] [place], [address]. tel:[phone] [facility], [address], [place], [place], [id number], [place] tel:[phone] [facility] Encounter for dental exam and cleaning w/o abnormal findings Aug- 8 Caitlin Fisher. [address], [id number], [place], [id number], [place]. tel:[phone] Referring Provider: Natalia Tucker, [address] [id number] , [place], [address]. tel:[phone] OFFICE/OUTPA TIENT VISIT, EST [facility], [facility] [address], [place], [id number], [place] tel:[phone] [facility] Schizophreni aOther stimulant dependence, in remissionAlc ohol dependence, in remissionTob acco useBody mass index (BMI) 40.0-44.9, adult Apr-0 8 Keyla Muniz. [address], [id number] [facility], [place], [id number], [place]. tel:[phone] Referring Provider: Flavio Ramires, [address] [id number] [place], [address]. tel:[phone] [facility], [facility] [address], [place], [id number], [place] tel:[phone] [facility] Encounter for dental exam and cleaning w/o abnormal findings Jul-2 8 Caitlin Fisher. [address], [id number], [place], [id number], [place]. tel:[phone] Referring Provider: Siobhan Prajapati, [address] [id number] [place], [address]. tel:[phone] ing Provider: Crispin Mcrae Communicatio osmany Conner [id number] , [place], [address]. tel:[phone] [facility], [address] [place], [id number], [place] tel:[phone] [facility] Encounter for dental exam and cleaning w/o abnormal findings 8 Caitlin Fisher. [address], [id number] [address] [place], [place] [address], [place], [id number], [place]. tel:[phone] Referring Provider: Crispin Mcraeo osmany Conner [id number] , [place], [address]. tel:[phone] [facility] Provider: Crispin Mcrae Dr [id number] , [place], [address]. tel:[phone] [facility], [address] [place], [id number], [place] tel:[phone] [facility] Encounter for dental exam and cleaning w/o abnormal findings 8 Caitlin Fisher. [address], [id number] [facility] [place], [id number], [place]. tel:[phone] Referring Provider: Natalia Tucker, [address] [id number] [place], [address]. tel:[phone] [facility], [address] [place], [id number], [place] tel:[phone] [facility] Encounter for dental exam and cleaning w/o abnormal findings 8 Caitlin Fisher. [address], [id number] [facility] [place], [id number], [place]. tel:[phone] Consulting Provider: Crispin Mcraeo osmany Conner [id number] , [place], [address]. tel:[phone] [facility], [address], [place], [id number], [place] tel:[phone] [facility] Dental Encounter for dental exam and cleaning w/o abnormal findings 7 Caitlin Fisher. [address], [id number] [facility], [place], [id number], [place]. tel:[phone] Referring Provider: Siobhan Prajapati, Crispin Singhatio osmany Conner [id number] , [place], [address]. tel:[phone] ing Provider: Siobhan Prajapati, Crispin Singhatio osmany Conner [id number] , [place], [address]. tel:[phone] OFFICE/OUTPA TIENT VISIT, EST [facility], [address], [place], [id number], [place] tel:[phone] [facility] Body mass index (BMI) 39.0-39.9, adultSchizop hreniaOther stimulant dependence, in remissionAlc ohol dependence, in remissionTob acco useBody mass index (BMI) 40.0-44.9, adult Sep- 7 Keyla Muniz. [address], [id number] [facility] [place], [id number], [place]. tel:[phone] Referring Provider: Flavio Ramires, [address] [id number] [place], [address]. tel:[phone] [facility], [address], [place], [id number], [place] tel:[phone] [facility] No Information 7 Keyla Muniz. [address], [id number], [place], [id number], [place]. tel:[phone] OFFICE/OUTPA TIENT VISIT, EST [facility], [address], [place], [id number], [place] tel:[phone] [facility] Schizophreni aOther stimulant dependence, in remissionAlc ohol dependence, in remissionTob acco useBody mass index (BMI) 40.0-44.9, adult Horacio- 7 Keyla Muniz. [address], [id number] [facility], [place], [place], [id number], [place]. tel:[phone] Referring Provider: Flavio Ramires, [address] [id number] [place], [address]. tel:[phone] OFFICE/OUTPA TIENT VISIT, EST [facility], [address], [place], [place], [id number], [place] tel:[phone] [facility] Body mass index (BMI) 40.0-44.9, adultSchizop hreniaOther stimulant dependence, in remissionAlc ohol dependence, in remissionTob acco use 7 Keyla Muniz. [address], [id number], [place], [place], [id number], [place]. tel:[phone] OFFICE/OUTPA TIENT VISIT, EST [facility], [address], [place], [place], [id number], [place] tel:[phone] [facility] Schizophreni aOther stimulant dependence, in remissionAlc ohol dependence, in remissionTob acco use 7 Keyla Muniz. [address], [id number] [facility], [place], [id number], [place]. tel:[phone] Referring Provider: Flavio Ramires, [address] [id number] [place], [address]. tel:[phone] OFFICE/OUTPA TIENT VISIT, EST [facility], [address], [place], [place], [id number], [place] tel:[phone] [facility] Body mass index (BMI) 40.0-44.9, adultSchizop hreniaOther stimulant dependence, in remissionAlc ohol dependence, in remissionTob acco use 7 Keyla Muniz. [address], [id number] [place], [id number], [place]. tel:[phone] Referring Provider: Flavio Ramires, [address] [id number] [place], [address]. tel:[phone] OFFICE/OUTPA TIENT VISIT, EST [facility], [address], [place], [id number], [place] tel:[phone] [facility] Schizophreni aOther stimulant dependence, in remissionAlc ohol dependence, in remissionTob acco use 7 Keyla Muniz. [address], [id number] [place], [id number], [place]. tel:[phone] Referring Provider: Flavio Ramires, [address] [id number] [place], [address]. tel:[phone] OFFICE/OUTPA TIENT VISIT, EST [facility], [address], [place], [id number], [place] tel:[phone] [facility] Schizophreni aOther stimulant dependence, in remissionAlc ohol dependence, in remissionTob acco use 6 Keyla Muniz. [address], [id number] [place], [id number], [place]. tel:[phone] Referring Provider: Flavio Ramires, [address] [id number] [place], [address]. tel:[phone] OFFICE/OUTPA TIENT VISIT, EST [facility], [address], [place], [id number], [place] tel:[phone] [facility] Schizophreni aOther stimulant dependence, in remissionAlc ohol dependence, in remissionTob acco use 6 Keyla Muniz. [address], [id number] [facility], [place], [id number], [place]. tel:[phone] Referring Provider: Flavio Rmaires, [address] [id number] , [place], [address]. tel:[phone] [facility], [address], [place], [id number], [place] tel:[phone] [facility] Encounter for dental exam and cleaning w/o abnormal findings 6 Tucker Natalia. [address], [id number] [facility] [place], [id number], [place]. tel:[phone] [facility], [address], [place], [id number], [place] tel:[phone] [facility] Encounter for dental exam and cleaning w/o abnormal findings 6 Tuckerchristopher Fisher. [address], [id number] [address] [place], [place] [address], [place], [id number], [place]. tel:[phone] Consulting Provider: Siobhan Prajapati, [address] [id number] , [place], [address]. tel:[phone] OFFICE/OUTPA TIENT VISIT, EST [facility], [address], [place], [id number], [place] tel:[phone] [facility] Schizophreni aOther stimulant dependence, in remissionAlc ohol dependence, in remissionTob acco use 6 Ashley Conway. . Referring Provider: [place] rao tel:[phone] OFFICE/OUTPA TIENT VISIT, EST [facility], [address], [place], [id number], [place] tel:[phone] [facility] No Information 6 Torrey Page , [place], [place]. Referring Provider: Shea Pena. OFFICE/OUTPA TIENT VISIT, EST [facility], [address], [place], [id number], [place] tel:[phone] [facility] Paranoid schizophreni aDepression 6 Becky Valdivia. . Referring Provider: [place] rao tel:[phone] OFFICE/OUTPA TIENT VISIT, EST [facility], [address], [place], [id number], [place] tel:[phone] [facility] Paranoid schizophreni aDepression 5 Becky Valdivia. . OFFICE/OUTPA TIENT VISIT, EST [facility], [address], [place], [id number], [place] tel:[phone] [facility] No Information 5 Дмитрий Catherine. . [facility], [address], [place], [id number], [place] tel:[phone] [facility] Chronic paranoid schizophreni aAlcohol dependenceAn xiety disorder 5 Дмитрий Catherine. . OFFICE/OUTPA TIENT VISIT, EST [facility], [address], [place], [id number], [place] tel:[phone] [facility] No Information 5 Дмитрий Catherine. . OFFICE/OUTPA TIENT VISIT, EST [facility], [address], [place], [id number], [place] tel:[phone] [facility] No Information 5 Дмитрий Kimo. . OFFICE/OUTPA TIENT VISIT, EST [facility], [address], [place], [id number], [place] tel:[phone] [facility] No Information 3 5 Дмитрий Catherine. . Family History Family Member Type Diagnosis Age At Onset No Information Payers Payer name Insurance type Covered libertarian ID louis simmons([facility] [place] [facility] [id number] Social History Type Description Quantity Date Captured Comments Sex Female Smoking Status No Information Sexual Orientation Straight or heterosexual Gender Identity Female Chief Complaint And Reason For Visit No Information Reason For Referral Reason For Referral No Information Plan Of Treatment Date Type Action Status Goal Depression scree tarun. Due on due Goal Influenza vaccine. Due on due Goal Td vaccine. Due on due Goal Tdap. Due on due Goal Pap/HPV testing. Due on due Goal Td vaccine. Due on 18 due Goal Depression scree tarun. Due on due Goal Influenza vaccine. Due on due Goal Pap/HPV testing. Due on due Goal Tdap. Due on due Goal Td vaccine. Due on due Goal Depression scree tarun. Due on due Goal Influenza vaccine. Due on due Goal Pap/HPV testing. Due on due Goal Tdap. Due on due Goal Tdap. Due on due Goal Pap/HPV testing. Due on due Goal Influenza vaccine. Due on due Goal Depression scree tarun. Due on due Goal Td vaccine. Due on 18 due Goal Lifestyle education regardin g diet completed Goal Lifestyle education regardin g diet completed Goal Tobacco cessation counseling completed Goal Tobacco cessation counseling completed Goal Lifestyle education regardin g diet completed Goal Tobacco cessation counseling completed Goal Tobacco cessation counseling completed Future Order: Lab Order CBC (INC LUDES DIFF/PLT) ([id number]), Ordered on: Ordered Future Order: Lab Order COMPREHE NSIVE METABOLIC PANEL ([id number]), Ordered on: Ordered Future Order: Lab Order TSH, 3RD GENERATION ([id number]), Ordered on: Ordered Future Order: Lab Order HEMOGLOB IN A1C (496), Ordered on: Ordered Future Order: Lab Order VITAMIN D,25-OH,TOTAL,IA ([id number]), Ordered on: Ordered Future Order: Lab Order VITAMIN D, 25-HYDROXY, LC/MS/MS ([id number]), Ordered on: Ordered Future Order: Lab Order TSH, 3RD GENERATION (899), Ordered on: Ordered Future Order: Lab Order LIPID PA ANTONIO ([id number]), Ordered on: Ordered Future Order: Lab Order COMPREHE NSIVE METABOLIC PANEL ([id number]), Ordered on: Ordered Future Order: Lab Order CBC (INC LUDES DIFF/PLT) ([id number]), Ordered on: Ordered Future Order: Lab Order HEMOGLOB IN A1C (496), Ordered on: Ordered Future Order: Lab Order VITAMIN B12/FOLATE, SERUM PANEL ([id number]), Ordered on: Ordered Future Order: Lab Order CBC w/di ff ([id number]), Ordered on: Ordered Future Order: Lab Order CMP ([id number]), O rdered on: Ordered Future Order: Lab Order Lipid Pa antonio ([id number]), Ordered on: Ordered Future Order: Lab Order Hemoglob in A1c ([id number]), Ordered on: Ordered Future Order: Lab Order Vitamin D, 25-Hydroxy ([id number]), Ordered on: Ordered Future Order: Lab Order Vitamin B12 and Folate ([id number]), Ordered on: Ordered Future Order: Lab Order TSH ([id number]), O rdered on: Ordered History Of Present Illness Encounter Date Complaint History Of Prese nt Illness No Information Functional Status Date Functional Assessmen t No Information Instructions Date Instruction Additional Infor mation Giving encouragement to exercise Related to Body mass index (BMI) 38.0-38.9, adult Lifestyle education regarding di et Related to Body mass index (BMI) 38.0-38.9, adult Giving encouragement to exercise Related to Body mass index (BMI) 39.0-39.9, adult Lifestyle education regarding di et Related to Body mass index (BMI) 39.0-39.9, adult Giving encouragement to exercise Related to Body mass index (BMI) 40.0-44.9, adult Lifestyle education regarding di et Related to Body mass index (BMI) 40.0-44.9, adult Giving encouragement to exercise Related to Body mass index (BMI) 40.0-44.9, adult Dietary needs education Related to Body mass index (BMI) 40.0-44.9, adult Assessments Type Assessment Date No Information Patient Care Teams Name Effective Dates (start - stop) Status Members No Information
[2024-12-26 18:07] VITALS: BP 99/63; PULSE 76; RESP 18; TEMP 36.8; O2SAT 96
--- NOTE | 2024-12-26 20:00 | CTR_ITS ---
PROCEDURE INFORMATION: Exam: CT Head Without Contrast Exam date and time: 12/26/2024 8:40 PM Age: 54 years old Clinical indication: Injury or trauma; Fall; Blunt trauma (contusions or hematomas); Consciousness not specified; Additional info: Fall with neurodeficit TECHNIQUE: Imaging protocol: Computed tomography of the head without contrast. Radiation optimization: All CT scans at this facility use at least one of these dose optimization techniques: automated exposure control; mA and/or kV adjustment per patient size (includes targeted exams where dose is matched to clinical indication); or iterative reconstruction. COMPARISON: CT head wo con* [id number] 08/17/2021 4:59 PM RADIATION DOSE METRICS: Total DLP (mGy-cm): 1069.08 FINDINGS: Brain: No acute intra-axial hemorrhage. No masses. Normal bear-white matter differentiation. No midline shift or mass effect. There is mild diffuse cerebral atrophy present, slightly greater than expected for patient's age. Cerebral ventricles: No ventriculomegaly. Paranasal sinuses: Visualized sinuses are unremarkable. No fluid levels. Mastoid air cells: Visualized mastoid air cells are well aerated. Bones: Unremarkable. No acute fracture. Soft tissues: Unremarkable. CT/CT head wo con* [id number] IMPRESSION: No acute intracranial abnormality.
--- NOTE | 2024-12-26 20:01 | W.ED.FALL ---
HPI - Fall General: Chief Complaint: Fall Stated Complaint: fall, hit head, low bp Time Seen by Provider: 12/26/24 19:41 History of Present Illness: Patient is a 54-year-old female resides at assisted living, intellectual disabilities, presents after a fall with posterior contusion. No nausea or vomiting. She states she is tired. Patient complains of the posterior parietal as primary impact. She stated she slipped and fell. She was not dizzy prior to her fall. Denies any sensory or neurochanges. Associated symptoms-after fall: Reports headache(s); Denies abdominal pain, chest pain or neck pain Related Data Home Medications ?Medication ?Instructions ?Recorded ?Confirmed acetaminophen 500 mg tablet 1,000 mg PO Q6H PRN Pain 05/19/19 12/26/24 (Tylenol Extra Strength) magnesium hydroxide 400 mg/5 mL 30 ml PO DAILY PRN Constipation 05/19/19 12/26/24 oral suspension (Jamison Milk of Magnesia) fluticasone fur. 100 mcg-umeclid 1 inh inhalation DAILY 09/25/20 12/26/24 62.5 mcg-vilant 25 mcg inhalat.powder (Trelegy Ellipta) Lactobacill 1 cap PO DAILY 05/22/22 12/26/24 acidophilus-L.helvetic-B.bifidum 250 million cell capsule (Acidophilus Probiotic Complex) aluminum-mag hydroxide-simethicone 20 ml PO DAILY PRN 05/22/22 12/26/24 200 mg-200 mg-20 mg/5 mL oral susp multivitamin 1 tab PO DAILY 05/22/22 12/26/24 psyllium 2 tsp PO BID 05/22/22 12/26/24 propranolol 20 mg tablet 20 mg PO BID 10/20/24 12/26/24 Previous Rx's ?Medication ?Instructions ?Recorded nicotine (polacrilex) 4 mg buccal 4 mg buccal Q1H PRN nicotine 07/14/24 lozenge cravings #24 ea benztropine 1 mg tablet 1 mg PO .evening #30 tabs 12/07/24 diazepam 5 mg tablet (Valium) 5 mg PO BID PRN anxiety/agitation 12/07/24 #60 tabs trazodone 50 mg tablet 50 mg PO BEDTIME PRN insomnia #30 12/07/24 tabs ziprasidone HCl 20 mg capsule 20 mg PO .evening #30 caps 12/07/24 (Geodon) ziprasidone HCl 80 mg capsule 80 mg PO .evening #60 caps 12/07/24 (Geodon) Allergies Allergy/AdvReac Type Severity Reaction Status Date / Time No Known Allergies Allergy Verified 12/26/24 18:10 Review of Systems General: Reports: 10 or more systems reviewed and unremarkable except in HPI and below Const: Denies: fever(s) or chills Eyes: Denies: change in vision, blurry vision or blind spots ENMT: Denies: throat pain or mouth pain Card: Denies: chest pain or palpitations Resp: Denies: dyspnea or non-productive cough GI: Denies: abdominal pain, nausea or vomiting : Denies: flank pain or difficulty voiding Musc: Denies: neck pain, back pain or extremity pain Skin/Breast: Denies: rash or pruritus Neuro: Reports: headache(s); Denies: numbness in extremities or weakness in extremities Psych: Denies: anxiety or depression PFSH ED PFSH: Medical History (Updated 12/26/24 @ 20:59 by BETH Spain) Drug induced akathisia Drug-induced tardive dystonia Psychiatric care Borderline intellectual functioning Cigarette nicotine dependence Schizoaffective disorder, bipolar type delivery delivered three times Social History Smoking and tobacco/nicotine status: current every day tobacco/nicotine user cigarettes Packs smoked per day: 1 Years cigarettes smoked: 20 Quit status (tobacco/nicotine): considering quitting Second hand smoke exposure: Yes Physical Exam Const: COMMON NORMALS: patient oriented x3 and alert ORIENTATION/CONSCIOUSNESS: Yes oriented to person, Yes oriented to place and Yes oriented to time HENMT: COMMON NORMALS: normocephalic, atraumatic, hearing grossly normal bilaterally, external ears normal, EAC's normal and TM's normal bilaterally HEAD & SCALP: normocephalic and atraumatic FACE & SINUS: normal facial exam, sinuses nontender and face symmetric EXTERNAL EAR: Yes external ears normal EXTERNAL AUDITORY CANAL: EAC's normal TYMPANIC MEMBRANE: TM's normal bilaterally Eye: COMMON NORMALS: Equal, round and reactive pupils present, EOMs intact bilaterally and conjunctivae normal CONJUNCTIVA: Yes conjunctivae normal PUPIL: Yes Equal, round and reactive pupils present Neck/C-Spine: COMMON NORMALS: full ROM and no meningeal signs CERVICAL SPINE: Yes cervical ROM normal, Yes normal cervical lordosis, No Cervical spine tenderness, No step off deformity, No Paracervical muscle tenderness and No Paracervical spasm OTHER: No pain with palpation, no pain with stimulated palpation Lymph: LYMPHATIC: no lymphadenopathy noted Chest: COMMONS NORMALS: normal inspection of the chest and normal palpation of entire chest wall Resp: COMMON NORMALS: normal respiratory effort, No retractions and clear to auscultation bilaterally AUSCULTATION: clear to auscultation bilaterally Cardio: COMMON NORMALS: regular rate and regular rhythm RATE: regular rate RHYTHM: regular rhythm GI: COMMON NORMALS: Normal to inspection, nondistended, normoactive bowel sounds present and Soft to palpation PALPATION: Yes Soft to palpation : COMMON NORMALS: Yes no CVA tenderness BLADDER/KIDNEY EXAM: Yes no CVA tenderness Back/Pelvis: COMMON NORMALS: no CVA tenderness Extremity: COMMON NORMALS: normal to inspection, full ROM and capillary refill normal Neuro: COMMON NORMALS: patient oriented x3 SENSORIUM/ORIENTATION: Yes alert, Yes oriented to person, Yes oriented to place, Yes oriented to time and Yes stuporous MENINGEAL SIGNS: Yes no meningeal signs MOTOR EXAM: 5/5 motor strength present throughout COMATOSE PATIENT: corneal reflex present PUPIL EXAM: Sluggish: right OTHER: Resting nystagmus Psych: COMMON NORMALS: mental status grossly normal and Normal thought process present THOUGHT PROCESS: Normal thought process present Course Vital Signs: Vital signs: Vital Signs Temperature 98.2 F 12/26/24 18:07 Pulse Rate 76 12/26/24 18:07 Respiratory Rate 18 12/26/24 18:07 Blood Pressure 99/63 12/26/24 18:07 Pulse Oximetry 96 12/26/24 18:07 Oxygen Delivery Me thod Room Air 12/26/24 18:07 MDM - Fall Medical Decision Making Patient is a 34-year-old female with intellectual disabilities, minimal neurochanges, however given her resting nystagmus upon examination, sluggish right pupil, will proceed with CT of the head. Lab Data Radiology Impressions Head CT 12/26/24 20:00 IMPRESSION: No acute intracranial abnormality. All radiology interpretation(s) finalized by discharge Discharge Plan Discharge Patient Disposition: Home Clinical Impression: Concussion without loss of consciousness Qualifiers: Encounter type: initial encounter Qualified Code(s): S06.0X0A - Concussion without loss of consciousness, initial encounter Condition: Stable Prescriptions: No Action magnesium hydroxide [Jamison Milk of Magnesia] 400 mg/5 mL suspension 30 ml PO DAILY PRN (Reason: Constipation) acetaminophen [Tylenol Extra Strength] 500 mg tablet 1,000 mg PO Q6H PRN (Reason: Pain) Trelegy Ellipta 100-62.5-25 mcg blister with device 1 inh inhalation DAILY multivitamin Tablet 1 tab PO DAILY psyllium Powder 2 tsp PO BID Rx Instructions: mix into at least 8 oz of water or juice before administering alum-mag hydroxide-simeth 200-200-20 mg/5 mL suspension 20 ml PO DAILY PRN Rx Instructions: for GERD Acidophilus Probiotic Complex 250 million cell capsule 1 cap PO DAILY nicotine (polacrilex) 4 mg lozenge 4 mg BUCCAL Q1H PRN (Reason: nicotine cravings) Qty: 24 6RF Rx Instructions: May take one nicotine lozenge-do not exceed more than 20 oz/day or 5 oz in 6 hr propranolol 20 mg tablet 20 mg PO BID diazepam [Valium] 5 mg tablet 5 mg PO BID PRN (Reason: anxiety/agitation) Qty: 60 2RF Rx Instructions: Take one tablet twice per day as needed for anxiety/agitation ziprasidone HCl [Geodon] 80 mg capsule 80 mg PO .evening Qty: 60 3RF Rx Instructions: Take one capsule, 80 mg, at noon with lunch and one capsule with 20 mg capsule in evening, total dose 100 mg with dinner in evening, 500 jim of food ziprasidone HCl [Geodon] 20 mg capsule 20 mg PO .evening Qty: 30 6RF Rx Instructions: Take one capsule in evening at dinner, with 80 mg capsule, total dose 100 mg, give with 500 calorie meal trazodone 50 mg tablet 50 mg PO BEDTIME PRN (Reason: insomnia) Qty: 30 3RF Rx Instructions: Take one tablet at bedtime as needed for sleep benztropine 1 mg tablet 1 mg PO .evening Qty: 30 6RF Rx Instructions: Take one tablet every evening Discharge Orders: Discharge ED (Routine); Ordered 12/26/24 Ordered By: Hillary Santoro Referrals: Tyson Velasco MD [Primary Care Provider, Family Practice] Discharge Diet: Usual diet Discharge Activity: Resume usual activity Patient Instructions: Concussion (ED), Patient Portal & [facility] Instructions Activity Restrictions/Additional Instructions: Follow-up concussion protocol If you have ongoing nausea, vomiting more than once, return to ED Return to your primary care physician. You will need a neurological follow-up exam by your doctor. Stand Alone Forms: Work/School Release Print Language: American Coding Level of Care Code ED Manager Of Maintenance for [facility]
[2024-12-26 21:11] VITALS: BP 95/62; PULSE 86; O2SAT 98
== END 2024-12-26 21:12 | disposition home or self-care (01) ==
PROVIDERS: Emergency Provider Physician Assistant; PCP Family Medicine
DX: S06.0X0A Concussion without loss of consciousness, initial encounter (principal); F17.210 Nicotine dependence, cigarettes, uncomplicated; W19.XXXA Unspecified fall, initial encounter
CPT/HCPCS: 70450; 99284

== ENCOUNTER 2025-03-29 18:04 | Emergency (ER) | payer MEDICAID, SELFPAY ==
--- NOTE | 2025-03-29 18:01 | ECG_ITS ---
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 Measurements Intervals [place] Rate: 72 P: 66 [place]: 156 QRS: -20 QRSD: 74 T: 43 QT: 413 QTc: 453 Interpretive Statements SINUS RHYTHM LOW QRS VOLTAGE IN PRECORDIAL LEADS [QRS DEFLECTION < 1.0 mV IN CHEST LEADS] Compared to ECG 06/13/2024 20:41:15 NO SIGNIFICANT CHANGE Electronically Signed On 03-29-2025 19:49:55 REGULATORY ASSISTANT by Dakota Culver M.D. [email or web address]
[2025-03-29 18:04] VITALS: BP 101/51; PULSE 72; RESP 16; TEMP 36.6; O2SAT 98; BMI 45.1
--- OUTSIDE RECORDS SUMMARY | 2025-03-29 18:08 | XMS_ITS | Data Portability ---
Author Organization ADONAY [facility] Linda Calles [facility] Address [address] [address] Care Team Providers Care Legal Executive Assistant Name Role Phone TED VELASCO Primary Care Provider Unavailabl e Assessment Encounter Date Assessment Date Assessment LastModified by Organization Details LastModified Time 10/20/2024 10/20/2024 I reviewed the patient's recent labs, vital signs, medications, and plan of care. I recommend no other change sat this time. Not available 10/21/2024 12:31:49 03/23/2025 03/23/2025 she is exercising and has quit smoking today. she requests lozenges and patches. if she is consistent with change will continue these. [email or web address] Not available 03/23/2025 13:05:28 Plan of Treatment Reminders Order Date Submit Date Provider Last Modified By Organization Details Last Modified Time Details Appointments None recorded. Lab HBsAg (hepatitis B surface Ag), serum 2024 025 [employer] [facility], [address] [facility] [address], [address] [place], [address], 5 07:20:39 CBC 2024 025 EMILY [facility], [address], [facility] [[email or web address] 1, [place], [address], 5 10:21:08 thyrotropin , QN, serum or plasma 2024 025 FONDA [facility], [address], [facility] [[email or web address] [address], [address], 12:27:58 CMP, serum or plasma 2024 [facility], [address] [facility], [facility] [[email or web address]] 1, [place], [address], 10:58:48 lipid panel, blood 2024 [facility], [address] [facility], [facility] [[email or web address] 1, [place], [address], 10:58:49 Referral None recorded. Procedures None recorded. Surgeries None recorded. Imaging None recorded. Medication Orders psyllium husk 3 gram/3 gram oral powder 2024 EMILY [facility], [address] [place] [address], [address], 15:13:38 nicotine (polacrilex ) 4 mg buccal lozenge 2024 EMILY [facility], [address] [place] [address], [address], 14:55:53 irbesartan 300 mg tablet 2024 EMILY [facility], [address] [place] [address], [address], 15:13:23 nicotine 21 mg/24 hr daily transdermal patch 2024 EMILY [facility], [address] [place] [address], [address], 14:55:52 polymyxin B sulfate 10,000 unit-trimet hoprim 1 mg/mL eye drops 2024 EMILY [facility], [address] [place] [address], [address], 15:03:30 amoxicillin 875 mg-potassiu m clavulanate 125 mg tablet 2024 025 EMILY [facility], [address] [place], [address], 11:13:20 chlorhexidi ne gluconate 0.12 % mouthwash 2024 025 EMILY [facility], [address] [place], [address], 15:03:31 Patient TargetsNo targets recorded. Patient InstructionsNo instructions recorded. Reason for Referral None Reported. Results Created Date Observation Date Name Description Value Unit Range Abnormal Flag Note LastModifiedBy Organization Detail LastModifiedTime 02/10/2002/09/2025 CBC WBC 8.6 x10 4.0-10 .5 Not Available [facility] [address] [facility] [address], [place], [address], 02/09/2025 10:21:08 02/10/2002/09/2025 CBC RBC 5.06 x10 3.50-5 .50 Not Available [facility] [address] [facility] [address], [place], [address], 02/09/2025 10:21:08 02/10/2002/09/2025 CBC HGB 14.4 g/dL 12.0-1 6.0 Not Available [facility] [address] [facility] [address], [place], [address], 02/09/2025 10:21:08 02/10/2002/09/2025 CBC HCT 45.4 % 37.0-4 7.0 Not Available [facility] [address] [facility] [address], [place], [address], 02/09/2025 10:21:08 02/10/2002/09/2025 CBC MCV 89.8 fL 80.0-9 9.9 Not Available [facility] [address] [facility] [address], [place], [address], 02/09/2025 10:21:08 02/10/2002/09/2025 CBC MCH 28.4 pg 27.0-3 2.0 Not Available [facility] [address] [facility] [[email or web address]] 1, [place], [address], 02/09/2025 10:21:08 02/10/2002/09/2025 CBC MCHC 31.7 g/dL 32.0-3 6.0 low Not Available [facility] [address] [facility] [[email or web address]] 1, [place], [address], 02/09/2025 10:21:08 02/10/2002/09/2025 CBC RDW 14.1 % 11.5-1 4.5 Not Available [facility] [address] [facility] [[email or web address] 1, [place], [address], 02/09/2025 10:21:08 02/10/2002/09/2025 CBC plt 287.7 x10 140.0- 451.0 Not Available [facility] [address] [facility] [[email or web address]] 1, [place], [address], 02/09/2025 10:21:08 02/10/2002/09/2025 CBC lymphocytes % 26.8 % 20.0-5 0.0 Not Available [facility] [address] [facility] [[email or web address]] 1, [place], [address], 02/09/2025 10:21:08 02/10/2002/09/2025 CBC granulcytes % 63.6 % 30.0-7 0.0 Not Available [facility] [address] [facility] [[email or web address]] 1, [place], [address], 02/09/2025 10:21:08 02/10/20 25 02/09/2025 CBC monocytes % 6.6 % 2.0-16 .0 Not Available [facility] [address] [facility], [place], [address], 02/09/2025 10:21:08 02/10/2002/09/2025 CBC granulcytes# 5.5 x10 Not Marielena ilable [facility] [address] [facility] [address], [place], [address], 02/09/2025 10:21:08 02/10/2002/09/2025 CBC lymphocytes # 2.3 x10 Not Available [facility] [address] [facility] [address], [place], [address], 02/09/2025 10:21:08 02/10/2002/09/2025 CBC monocytes # 0.6 x10 Not Avai lable [facility] [address] [address], [place], [address], 02/09/2025 10:21:08 02/10/2002/09/2025 CMP (FEMA LE) glucose 116.0 mg/dL 60.0-9 9.0 high Not Available [facility] [address] [facility] [address], [place], [address], 02/09/2025 10:58:48 02/10/2002/09/2025 CMP (FEMA LE) BUN (blood urea nitrogen) 13.0 mg/dL 10.0-2 6.0 Not Available [facility] [address] [address], [place], [address], 02/09/2025 10:58:48 02/10/20 25 02/09/2025 CMP (FEMA LE) creatinine (serum) 1.0 mg/dL 0.4-1. 5 Not Available [facility] [address] [address], [place], [address], 02/09/2025 10:58:48 02/10/20 25 02/09/2025 CMP (FEMA LE) BUN/creatini ne ratio 13.00 ratio Not Available [facility] [address] [facility] [[email or web address] 1, [place], [address], 02/09/2025 10:58:48 02/10/2002/09/2025 CMP (FEMA LE) eGFR calculated 61.6 Not Available [facility] [address] [facility], [place], [address], 02/09/2025 10:58:48 02/10/2002/09/2025 CMP (FEMA LE) total protein 6.9 g/dL 6.0-8. 5 Not Available [facility] [address] [facility] [address], [place], [address], 02/09/2025 10:58:48 02/10/20 25 02/09/2025 CMP (FEMA LE) total bilirubin 0.6 mg/dL 0.2-1. 3 Not Available [facility] [address] [facility], [place], [address], 02/09/2025 10:58:48 02/10/20 25 02/09/2025 CMP (FEMA LE) albumin 4.0 g/dL 3.5-5. 5 Not Available [facility] [address] [facility] [address], [place], [address], 02/09/2025 10:58:48 02/10/2002/09/2025 CMP (FEMA LE) globulin 2.9 calc Not Available [facility] [address] [facility] [address] [facility] [[email or web address]] 1, [place], [address], 02/09/2025 10:58:48 02/10/2002/09/2025 CMP (FEMA LE) AST (SGOT) 27.0 U/L 0.0-46 .0 Not Available [facility] [address] [facility] [[email or web address] 1, [place], [address], 02/09/2025 10:58:48 02/10/20 25 02/09/2025 CMP (FEMA LE) altv (SGPT) 28.0 U/L 13.0-6 9.0 normal Not Available [facility] [address] [facility] [[email or web address] 1, [place], [address], 02/09/2025 10:58:48 02/10/20 25 02/09/2025 CMP (FEMA LE) A/G ratio 1.4 ratio Not Available [facility] [address] [facility] [[email or web address]] 1, [place], [address], 02/09/2025 10:58:48 02/10/20 25 02/09/2025 CMP (FEMA LE) ALP phos 82.0 U/L 30.0-1 40.0 normal Not Available [facility] [address] [facility] [[email or web address]] 1, [place], [address], 02/09/2025 10:58:48 02/10/2002/09/2025 CMP (FEMA LE) calcium 9.0 mg/dL 8.4-10 .5 Not Available [facility] [address] [facility], [place], [address], 02/09/2025 10:58:48 02/10/2002/09/2025 CMP (FEMA LE) sodium 141.0 mmol/ L 136.0- 145.0 Not Available [facility] [address] [facility] [address], [place], [address], 02/09/2025 10:58:48 02/10/2002/09/2025 CMP (FEMA LE) potassium 4.4 mmol/ L 3.5-5. 1 Not Available [facility] [address] [facility] [[email or web address]] 1, [place], [address], 02/09/2025 10:58:48 02/10/20 25 02/09/2025 CMP (FEMA LE) chloride 106.0 mmol/ L 98.0-1 10.0 normal Not Available [facility] [address] [facility] [[email or web address] 1, [place], [address], 02/09/2025 10:58:48 02/10/20 25 02/09/2025 CMP (FEMA LE) C02 28.0 mmol/ L 22.0-3 1.0 Not Available [facility] [address] [facility] [[email or web address] 1, [place], [address], 02/09/2025 10:58:48 02/10/20 25 02/09/2025 CMP (FEMA LE) anion gap 7.0 calc Not Available [place] [facility] [address] [facility] [[email or web address] 1, [place], [address], 02/09/2025 10:58:48 02/10/2002/09/2025 CMP (FEMA LE) osmolality 292.1 calc Not Available [facility] [address] [facility] [[email or web address] 1, [place], [address], 02/09/2025 10:58:48 02/10/2002/09/2025 LIPID PROFI LE (FEMA LE) cholesterol 140.0 mg/dL 0.0-20 0.0 Not Available [facility] [address] [facility] [[email or web address] 1, [place], [address], 02/09/2025 10:58:49 02/10/2002/09/2025 LIPID PROFI LE (FEMA LE) trig 103.0 mg/dL 0.0-15 0.0 Not Available [facility] [address] [facility] [[email or web address] 1, [place], [address], 02/09/2025 10:58:49 02/10/2002/09/2025 LIPID PROFI LE (FEMA LE) HDL - direct 38.0 mg/dL >40.0 low Not Available [facility] [address] [facility] [address], [place], [address], 02/09/2025 10:58:49 02/10/20 25 02/09/2025 LIPID PROFI LE (FEMA LE) VLDL - direct 20.6 mg/dL Not Available [facility] [address] [facility] [address], [place], [address], 02/09/2025 10:58:49 02/10/20 25 02/09/2025 LIPID PROFI LE (FEMA LE) LDL - direct 81.4 mg/dL 0.0-13 0.0 Not Available [facility] [address] [facility] [address], [place], [address], 02/09/2025 10:58:49 02/10/2002/09/2025 TSH TSH 1.48 uIU/m L 0.49-3 .82 Not Available [facility] [address] [facility] [address], [place], [address], 02/09/2025 12:27:58 02/10/2002/10/2025 HEPAT ITIS B SURFA CE ANTIG EN W/REF L CONFI RM hepatitis B surface antigen NON-RE ACTIVE non-re active normal For addit ional infor danna hernandez e refer to http: //[facility] joshua rader.que stdia gnost ics.c om/fa q/FAQ (This link is being provi ded for infor grecia bender/ sydnie patel purpo ses only. ) Not Available [facility] [address] [place], [address], 02/10/2025 07:20:39 Result Notes None recorded. Problems Name Problem SNOMED Code Status Onset Date Resolution Date Notes Provider Name and Address Organization Details Recorded Time Severe obesity 3205099490093 4 Active 2022 MARTHA COURTNEY snow [facility] 5 08:37:55 Tobacco dependence caused by cigarettes 9735159230755 9107 Active 2022 [facility] 08:26:01 Chronic obstructive pulmonary disease 02235177 Active 2022 MARTHA COURTNEY snow [facility] 3 14:15:32 Paranoid schizophren ia 23464169 Active 2022 [facility] 3 14:15:51 Generalized anxiety disorder 55716737 Active 2023 MARTHA COURTNEY [facility] 5 08:37:55 Essential hypertensio n 27584833 Active 2024 [facility] COURTNEY [facility] 5 08:26:01 Hiatal hernia 45892103 Active 2024 small, first seen on LD CT 07/2024 MARTHA COURTNEY [facility] 5 08:26:01 Problem Notes None recorded. Procedures Surgical History Date Name Laterality Status Provider Name and Address Organization Details Recorded Time 3 Most Recent Mammogram completed MARTHARuth VALDEZ [facility] 01/15/2023 14:17:41 3 mammography completed THEODORE BALBUENA [facility] 11/22/2022 18:47:16 3 screening for malignant neoplasm of colon completed MARTHA COURTNEY [facility] 01/15/2023 14:16:43 9 Date of Last Pap Smear completed RAY VELASCO PA-C [address] [place], [address], [facility], [place] 09/17/2022 13:01:59 9 section completed [facility], [place] 10/29/2023 14:23:48 6 section completed [facility], [place] 10/29/2023 14:23:14 5 section completed [facility], [place] 10/29/2023 14:23:01 Imaging Results None recorded. Procedure Notes None recorded. Medical Equipment None Reported. Allergies No known drug allergies Medications Name Sig Start Date Stop Date Status Note LastModified by Organization Details LastModified Time ziprasido ne 80 mg capsule Take 1 capsule every day by oral route. active Not Available Not Available No t Available nicotine 14 mg/24 hr daily transderm al patch replace with 1 new transder mal patch daily for 7 days then begin 7mg patch 03/23 completed Not Available Not Available Not Available divalproe x 250 mg tablet,de layed release 12/15 completed Not Available Not Available Not Available trazodone 50 mg tablet 1 at bedtime active Not Available Not Available No t Available azithromy lm 250 mg tablet TAKE 2 TABLETS (500 MG) BY ORAL ROUTE ONCE DAILY FOR 1 DAY THEN 1 TABLET (250 MG) BY ORAL ROUTE ONCE DAILY FOR 4 DAYS 11/06 completed Not Available Not Available Not Available prednison e 20 mg tablet Take 1 tablet every day by oral route for 7 days. 01/10 completed Not Available Not Available Not Available Milk of Magnesia 400 mg/5 mL oral suspensio n daily prn constipa tion active Not Available Not Available No t Available divalproe x 500 mg tablet,de layed release 04/15 completed Not Available Not Available Not Available triamcino lone acetonide 0.1 % topical cream APPLY A THIN LAYER TO THE AFFECTED AREA(S) BY TOPICAL ROUTE 2 TIMES PER DAY 12/14 completed Not Available Not Available Not Available propranol ol 10 mg tablet 03/23 completed Not Available Not Available Not Available fluphenaz ine 1 mg tablet 03/23 completed Not Available Not Available Not Available amoxicill in 875 mg tablet Take 1 tablet every 12 hours by oral route for 10 days. 01/10 completed Not Available Not Available Not Available ziprasido ne 20 mg capsule 1 daily; take with 80 mg to total 100 mg active Not Available Not Available No t Available famotidin e 20 mg tablet two times daily 2019 active Not Available Not Available Not Avai lable prednisol one acetate 1 % eye drops,sara pension INSTILL 1 DROP INTO AFFECTED EYE(S) BY OPHTHALM IC ROUTE 2 TIMES PER DAY PRN EYE IRRITATI ON FOR UP TO 7 DAYS THEN D/C 01/10 completed Not Available Not Available Not Available diazepam 2 mg tablet 11/20 completed Not Available Not Available Not Available pantopraz ole 40 mg tablet,de layed release TAKE ONE TABLET BY MOUTH TWICE DAILY FOR reflux 2024 active Not Available Not Available Not Avai lable nystatin 100,000 unit/gram topical cream APPLY TO THE AFFECTED AREA(S) BY TOPICAL ROUTE 2 TIMES PER DAY 12/14 completed Not Available Not Available Not Available polymyxin B sulfate 10,000 unit-trim ethoprim 1 mg/mL eye drops INSTILL 1 DROP INTO AFFECTED EYE(S) BY OPHTHALM IC ROUTE EVERY 4 HOURS x 7 days 03/23 completed Not Available Not Available Not Available benztropi ne 1 mg tablet 1 every evening active Not Available Not Available No t Available nicotine 21 mg/24 hr daily transderm al patch Apply 1 patch every day by transder mal route for 7 days, for if she is consiste nt with not smoking, please call for taperig dose at 7 days. 2024 active Not Available Not Available Not Avai lable lidocaine HCl 2 % mucosal solution 03/23 completed Not Available Not Available Not Available hydroxyzi ne HCl 25 mg tablet Take 1 tablet by oral route as needed. active Not Available Not Available No t Available ziprasido ne 40 mg capsule 03/23 completed Not Available Not Available Not Available irbesarta n 150 mg tablet TAKE ONE TABLET BY MOUTH EVERY DAY 2024 active Not Available Not Available Not Avai lable Mylanta 200 mg-200 mg-20 mg/5 mL oral suspensio n daily prn GERD active Not Available Not Available No t Available propranol ol 20 mg tablet Take 1 tablet twice a day by oral route. 2024 active Not Available Not Available Not Avai lable ziprasido ne 60 mg capsule 11/20 completed Not Available Not Available Not Available SF 5000 Plus 1.1 % dental cream 02/15 completed Not Available Not Available Not Available irbesarta n 300 mg tablet Take 1 tablet every day by oral route. 2024 active Not Available Not Available Not Avai lable diazepam 5 mg tablet two times daily active Not Available Not Available No t Available amoxicill in 875 mg-potass ium clavulana te 125 mg tablet Take 1 tablet every 12 hours by oral route for 10 days. 01/23 completed Not Available Not Available Not Available nicotine 7 mg/24 hr daily transderm al patch APPLY 1 PATCH daily FOR 7 DAYS THEN disconti nue 03/23 completed Not Available Not Available Not Available Natural Fiber Laxative (sugar) oral powder DISSOLVE 2 TABLESPO ONFUL (PWD) BY MOUTH TWICE DAILY active Not Available Not Available No t Available Pepto-Bis mol 262 mg/15 mL oral suspensio n Take 60 ml po q 1 hour prn diarrhea up to 8 doses in a 24 hour period 2024 active Not Available Not Available Not Avai lable nicotine (polacril ex) 4 mg buccal lozenge DISSOLVE ONE lozenfe BY MOUTH EVERY 2 hour NEEDED FOR nicotine cravings (not TO exceed 20OZ lozenges PER DAY OR 5OZ in SIX for 7 days HOURS) 2024 active Not Available Not Available Not Avai lable duloxetin e 30 mg capsule,d elayed release daily 03/23 completed Not Available Not Available Not Available chlorhexi dine gluconate 0.12 % mouthwash 15 ml swish over teeth then spit out after each meal 03/23 completed Not Available Not Available Not Available acetamino phen every 8 hrs prn active max dose 3000 mg 24 hours Not Available Not Available Not Available Depakote at 7 pm 01/15 completed 0; Recorded 07/18/19 23 7:29AM by Martha Valdez LPN, Office Visit; Not Available Not Available Not Available benztropi ne three times daily 01/15 completed 0; Recorded 07/18/19 23 7:29AM by Martha Valdez LPN, Office Visit; Not Available Not Available Not Available Acidophil us 11/20 completed Not Available Not Available Not Available Multi-Vit sanchez daily active Not Available Not Available Not Available medroxypr ogesteron e on the first 10 days of the month 09/09 completed 0; Recorded 07/18/19 23 7:29AM by Martha Valdez LPN, Office Visit; Not Available Not Available Not Available Mylanta 01/15 completed Not Available Not Available Not Available Geodon 03/23 completed Not Available Not Available Not Available paliperid one ER 9 mg tablet,ex tended release 24 hr 03/23 completed Not Available Not Available Not Available Invega 6 mg tablet,ex tended release Take 1 tablet every day by oral route. 02/15 completed Not Available Not Available Not Available Fiber (psyllium husk) two times daily 12/14 completed 1 bottle; 436; Recorded 04/17/20 22 7:59AM by Martha Valdez LPN (Authori zed through Ted Velasco MD), Office Visit; Refill Quantity : 1; Each; Not Available Not Available Not Available Vicks DayQuil Severe Cold-Flu 5 mg-10 mg-325 mg-200 mg tablet Take 1 tablet 3 times a day by oral route as needed for 7 days, for cough, runny nose. 2023 active Not Available Not Available Not Avai lable guaifenes in ER 600 mg tablet, extended release 12 hr TAKE ONE TABLET BY MOUTH TWICE DAILY NEEDED FOR cough 2024 active Not Available Not Available Not Avai lable psyllium husk 3 gram/3 gram oral powder Take 15 g every day by oral route, for mixed in 8-12 oz of drink. 2024 active Not Available Not Available Not Avai lable Probiotic Acidophil us 250 million cell capsule TAKE ONE CAPSULE BY MOUTH EVERY DAY 2024 active Not Available Not Available Not Avai lable Trelegy Ellipta 100 mcg-62.5 mcg-25 mcg powder for inhalatio n INHALE 1 PUFF INTO LUNGS BY MOUTH EVERY DAY FOR COPD 2024 active Not Available Not Available Not Avai lable Paxlovid 300 mg (150 mg x 2)-100 mg tablets in a dose pack take as directed on package 07/19 completed Not Available Not Available Not Available Vitals Date Recorded Body height Oxygen saturation Oxygen saturation in Arterial blood by Pulse oximetry Heart rate Respiratory rate Body temperature Systolic And Diastolic Provider Name and Address Organization Details Last Updated DateTime 5 168.91 cm 93 % 93 % 93 /min 18 /min 96.9 [degF] 138/33 mm[Hg] [facility] 5 08:25:26 Date Recorded Body height Body mass index (BMI) Body weight Oxygen saturation Oxygen saturation in Arterial blood by Pulse oximetry Heart rate Respiratory rate Body temperature Systolic And Diastolic Provider Name and Address Organization Details Last Updated DateTime 5 168.91 cm 43.1 kg/m2 573500. 53 g 94 % 94 % 87 /min 18 /min 97.3 [degF] 144/91 mm[Hg] [facility] 5 08:24:10 Date Recorded Body height Body mass index (BMI) Body weight Oxygen saturation Oxygen saturation in Arterial blood by Pulse oximetry Heart rate Respiratory rate Body temperature Systolic And Diastolic Provider Name and Address Organization Details Last Updated DateTime 5 168.91 cm 43.8 kg/m2 331069. 3 g 98 % 98 % 61 /min 17 /min 97.9 [degF] 140/84 mm[Hg] [facility] 5 10:39:53 Date Recorded Body height Body mass index (BMI) Body weight Body temperature Oxygen saturation Oxygen saturation in Arterial blood by Pulse oximetry Heart rate Systolic And Diastolic Provider Name and Address Organization Details Last Updated DateTime 5 168.91 cm 42.9 kg/m2 466415. 94 g 97.9 [degF] 96 % 96 % 56 /min 152/90 mm[Hg] MARTHA VALDEZ [facility] 12:52:38 Social History Question Answer Notes LastModified by [employer] Details LastModified Time Tobacco Smoking Status Current Every Day Smoker Ted Velasco MD [address] [place] [address], [id number], [facility] 01/21/2024 12:15:26 What Was The Date Of Your Most Recent Tobacco Screening? 10/20/2024 [email or web address] Information not available 10/20/2024 What Is Your Current Pack Years? 30ormorepacky ears [email or web address] Information not available 07/21/2024 How Much Tobacco Do You Smoke? 1 PPW [email or web address] Information not available 07/21/2024 Sex: Unknown Functional Status Question Answer Note LastModified by Organizat ion Details LastModified Time Do you use any illicit or recreational drugs? No Information not available 01/15/2023 Do you or have you ever used any other forms of tobacco or nicotine? No [email or web address] Information not available 01/15/2023 What is your level of alcohol consumption? None [email or web address] Information not available 01/15/2023 Mental Status None recorded. Family History Relationship Description Onset Age of this Age Resolved Age Notes LastModified by Organization Details LastModified Time Father Diabetes mellitus [email or web address] Not available 2022 12:20:07 Mother Diabetes mellitus [email or web address] Not available 2022 12:20:07 Sister Pulmonary embolism [email or web address] Not available 2022 12:20:22 Sister Malignant neoplasm of breast [email or web address] Not available 03/23 12:50:51 Medical History Condition Response Coronary Artery Disease N Other N Gout N Kidney Stones N Blood Diseases N Hyperthyroidism N Breast Cancer N Blood Transfusion N Depression N Hypothyroidism N Lung Disease N COPD N Developmental or Behavioral Disorders N Defects or Inherited Disease N Breast Problem N Difficulty Swallowing N Anesthesia Complications N Anxiety Disorder N Meniere's disease N Muscle, Joint, or Bone Problems N Vision or Eye Problems N Arthritis N Infertility N Polyps N Cancer N Stroke N Varicosities N Endometriosis N Bladder or Kidney Problems N High Cholesterol N Liver Disease N Fibromyalgia N Headaches N Kidney Disease N Allergies/Hayfever N Heart Problems N Ear or Hearing Problems N Hospitalizations N Thyroid Problems N GI Problems N ADD/ADHD N Skin Problems N Eating Disorder N Anemia N Constipation N Mental Illness N Ovarian Cancer N Diabetes N Bedwetting N Seizures/Epilepsy N Tuberculosis N Eczema N Diverticulitis N Abuse/Domestic Violence N Asthma N Reflux/GERD N Hepatitis N Heart Disease N Pulmonary Embolism N Pre-Eclampsia N Hypertension N Chronic Ear Infections N Osteoporosis N Chicken Pox N Autism Spectrum Disorder (ASD) N Thrombophilias N Gynecological History Statement/Question Response Menses Monthly Y Abnormal Pap N Date of Last Pap Smear 09/19/2018 Most Recent Mammogram 11/20/2022 Obstetrics History GPAL:G 0 P 0 0 0 0 Immunizations Vaccine Type Date Status Note Provider Nam e and Address Organization Details Recorded Time influenza, intradermal, quadrivalent, preservative free [facility] 09:36:05 Influenza, MDCK, quadrivalent, PF 2 completed Yahairaadrian Blake [facility] 11/20/2022 09:36:05 Influenza, MDCK, quadrivalent, PF 9 completed Yahairaadrian Blake [facility] 11/20/2022 09:36:05 COVID-19, mRNA, LNP-S, PF, 100 mcg/0.5mL dose or 50 mcg/0.25mL dose 1 [facility] 11/20/2022 09:36:05 COVID-19, mRNA, LNP-S, PF, 100 mcg/0.5mL dose or 50 mcg/0.25mL dose 1 [facility] 11/20/2022 09:36:05 COVID-19, mRNA, LNP-S, PF, 100 mcg/0.5mL dose or 50 mcg/0.25mL dose 2 completed Yahaira snow, [facility] 11/20/2022 09:36:05 Pneumococcal conjugate PCV20, polysaccharide [id number] conjugate, adjuvant, PF 3 completed Yahaira snow, [facility] 11/20/2022 09:36:06 COVID-19, mRNA, LNP-S, bivalent, PF, 50 mcg/0.5 mL or 25mcg/0.25 mL dose 3 completed Yahaira snow, [facility] 11/20/2022 09:36:06 pneumococcal polysaccharide PPV23 6 completed Yahaira snow, [facility] 11/20/2022 09:36:06 Tdap 2 completed Yahaira snow, [facility] 11/20/2022 09:36:06 Influenza, split virus, quadrivalent, PF 7 completed Yahaira snow, [facility] 11/20/2022 09:36:06 COVID-19, mRNA, LNP-S, PF, 50 mcg/0.5 mL 4 completed MARTHA snow, [facility] 04/28/2024 08:28:08 Influenza, MDCK, trivalent, preservative 4 completed MARTHA snow, [facility] 04/28/2024 08:28:08 zoster recombinant 3 completed Ted Velasco MD [address] [place] [address], [phone], [facility] 02/03/2023 08:06:53 Influenza, split virus, quadrivalent, PF 3 completed MARTHA snow [facility] 03/26/2023 13:19:57 meningococcal MCV4, unspecified formulation 8 completed Not Available [facility] 04/16/2023 08:20:53 Influenza, split virus, trivalent, preservative 8 completed Not Available [facility] 04/16/2023 08:20:53 Past Encounters Encounter ID Performer Location Encounter Start Date Encounter Closed Date Diagnosis/Indication Diagnosis SNOMED-CT Code Diagnosis ICD10 Code Diagnosis IMO Codes Diagnosis Note [id number] RAY VELASCO PA-C [facility] ([facility]) [address] [place] [address] [id number] 09/17/2022 11:42:57 09/17/2022 19:15:54 Adult health examination 608428552 Z00.00 Screening for malignant neoplasm of colon 455972083 Z12.11 will set her up with cologaurd Screening mammography 24 295214 Z12.31 Nicotine dependence 5629 4008 F17.200 Chronic ob structive pulmonary disease 12219849 J44.9 Body mass index 30+ - obesity 630903353 Z68.41 Schizophrenia 66372119 F 20.9 [id number] Ted Velasco MD [facility] ([facility]) [address] [place] [address] [id number] 5 11/20/2022 09:15:49 11/20/2022 11:30:58 Severe obesity 8881758756 9104 E66.01 Tobacco de pendence caused by cigarettes 9487779615 1813540 F17.210 Chronic ob structive pulmonary disease 38022575 J44.9 continue trelegysmo wilner cessation [id number] Ted Velasco MD [facility] ([facility]) [address] [place] [address] [id number] 5 01/15/2023 08:40:15 01/25/2023 10:13:14 Chronic obstructive pulmonary disease 39152809 J44.9 continue trelegy [id number] Ted Velasco MD [facility] ([facility]) [address] [place] [address] [id number] 5 02/02/2023 15:47:54 02/10/2023 04:07:53 Herpes zoster vaccination given 7058971207 34593 Z23 [id number] Ted Velasco MD [facility] ([facility]) [address] [place] [address] [id number] 5 03/26/2023 12:48:21 04/02/2023 04:07:58 Administration of influenza vaccine 00762088 Z23 [id number] Ted Velasco MD [facility] ([facility]) [address] [place] [address] [id number] 5 04/15/2023 12:39:50 04/23/2023 08:11:26 Fever 001773489 R50.9 COVID-19 986010900 U07.1 [id number] Ted Velasco MD [facility] ([facility]) [address] [place] [address] [id number] 5 04/16/2023 08:20:46 05/05/2023 10:23:56 Paranoid schizophrenia 42114485 F20.0 Chronic ob structive pulmonary disease 29399166 J44.9 continue trelegy [id number] GISELLE EDEN [facility] ([facility]) [address] [place] [address] [id number] 5 06/28/2023 16:56:06 06/28/2023 18:12:08 Bacterial conjunctivitis 084359521 H10.013 Start eye drops four times daily today. Encouraged good hand hygiene. Can use warm compresses for comfort. If worsening condition or no improvemen t in 5-7 days, return for further evaluation . If severe eye pain occurs, go to ED. Patient verbalized understand ing. [id number] Ted Velasco MD [facility] ([facility]) [address] [place] [address] [id number] 5 07/16/2023 08:15:50 07/19/2023 10:57:53 Chronic obstructive pulmonary disease 48294290 J44.9 continue trelegy Paranoid schizophrenia 53071020 F20.0 Tobacco de pendence caused by cigarettes 0551238579 5109020 F17.210 Severe obesity 084626490 1 9104 E66.01 Anxiety 22935415 F41.9 Body mass index 40+ - severely obese 813030103 Z68.41 [id number] RAY VELASCO PA-C [facility] ([facility]) [address] [place] [address] [id number] 5 09/10/2023 10:24:13 09/13/2023 09:26:57 Gynecologic examination 17699985 Z01.419 Contact dermatitis 40651 004 L25.9 Candidiasis of skin 4988 3006 B37.2 [id number] Ted Velasco MD [facility] ([facility]) [address] [place] [address] [id number] 5 10/22/2023 08:05:55 10/27/2023 10:41:31 Chronic obstructive pulmonary disease 70493621 J44.9 continue trelegy Paranoid schizophrenia 91392423 F20.0 appears more stable [id number] Vik Gallegos DO [facility] ([facility]) [address] [place] [address] [id number] 5 10/29/2023 13:50:09 10/29/2023 14:41:02 Acute left otitis media 157503885 H66.92 will start abx. rest, tylenol, Return to office with no improvemen t or any problems. Go to ER with severe worsening or severe problems. Acute exac erbation of chronic obstructive pulmonary disease 819676633 J44.1 I counseled pt on diagnosis of acute copd flair up. will start antibiotic s and steroids. Pt to continue to use inhalers/n ebs as prescribed . if worsening or no improvemen t in 2-3 days, pt is to f/u or go to ER. [id number] HAY CLARK [facility] ([facility]) [address] [place] [address] [id number] 5 11/07/2023 14:35:52 11/07/2023 15:17:56 Acute suppurative otitis media without spontaneous rupture of ear drum 26570404 H66.002 Discussed use of antibiotic the full 10 days.Retur n if you develop worsening pain, drainage from the ear or concerns arise. [id number] Ted Velasco MD [facility] ([facility]) [address] [place] [address] [id number] 5 12/10/2023 09:52:18 12/13/2023 10:02:21 Paranoid schizophrenia 55003871 F20.0 appears more stable [id number] HAY CLARK [facility] ([facility]) [address] [place] [address] [id number] 5 01/11/2024 11:46:37 01/11/2024 14:37:03 [id number] Ted Velasco MD [facility] ([facility]) [address] [place] [address] [id number] 01/11/2024 11:51:41 01/11/2024 14:22:06 Paranoid schizophrenia 75999173 F20.0 appears more stable Atypical chest pain 1025 19145 R07.89 will treat her GERDno further testing is indicated currently. Gastroesop hageal reflux disease 510139414 K21.9 cut back caffeine by 1/2have a small snack on awakening prior to your coffeeredu ce nicotine she smokes 5 cigs by 9 a.m. [id number] Ted Velasco MD [facility] ([facility]) [address] [place] [address] [id number] 5 01/21/2024 08:16:54 01/24/2024 10:55:16 Chronic obstructive pulmonary disease 91867928 J44.9 continue trelegy Paranoid schizophrenia 27162803 F20.0 appears more stable [id number] HAY CLARK [facility] ([facility]) [address] [place] [address] [id number] 5 02/16/2024 13:06:48 02/16/2024 17:53:42 Viral upper respiratory tract infection 677275229 J06.9 Pt has cough syrup and cough drops on her PRN med list. Advised to use these as directed push oral fluids. Return if you develop fever, sob, or start feeling worse. [id number] Ted Velasco MD [facility] ([facility]) [address] [place] [address] [id number] 5 03/02/2024 09:56:10 03/03/2024 10:03:05 Anxiety 71533319 F41.9 Paranoid schizophrenia 26376200 F20.0 appears more stable Viral screening 25306152 4 Z11.59 [id number] HAY CLARK [facility] ([facility]) [address] [place] [address] [id number] 5 04/12/2024 10:42:50 04/12/2024 18:37:42 Acute upper respiratory infection 59118136 J06.9 Push oral fluids and rest.If you develop fever, sob, or start feeling worse then return for re-evaluat ion. [id number] Ted Velasco MD [facility] ([facility]) [address] [place], [place] [phone] 5 04/28/2024 07:54:00 05/15/2024 13:09:38 Chronic obstructive pulmonary disease 55971361 J44.9 continue trelegy Paranoid schizophrenia 96178677 F20.0 appears more stable [id number] Ted Velasco MD [facility] ([facility]) [address] [place], [place] [phone] 5 07/21/2024 07:52:38 07/24/2024 12:37:15 Chronic obstructive pulmonary disease 76416139 J44.9 continue trelegy Generalize d anxiety disorder 16268061 F41.1 Paranoid schizophrenia 39906286 F20.0 appears more stable Nicotine dependence 5629 4008 F17.200 Essential hypertension 15332869 I10 [id number] Ted Velasco MD [facility] ([facility]) [address] [place] [address] [id number] 5 10/20/2024 08:24:21 10/24/2024 07:49:09 Chronic obstructive pulmonary disease 58762391 J44.9 continue trelegy Essential hypertension 03708741 I10 Tobacco de pendence caused by cigarettes 0542692317 8012489 F17.210 Generalize d anxiety disorder 09771731 F41.1 [id number] Ted Velasco MD [facility] ([facility]) [address] [place], [place] [phone] 5 01/19/2025 08:08:13 02/13/2025 10:32:59 Essential hypertension 99764523 I10 Chronic ob structive pulmonary disease 79741223 J44.9 continue trelegy Dental caries 81674489 K 02.9 83556 [id number] HAY KNIGHT [facility] ([facility]) [address] [place] [address] [id number] 5 01/23/2025 10:32:37 01/23/2025 11:03:29 Diarrhea 94881500 R19.7 39880856 Associated symptoms are as noted in the HPI. Patient instructed to continue with fluids and advance to a regular diet as she is able to tolerate it. May give yogurt with probiotic to aid in slowing diarrhea. Return to the office for diarrhea lasting more than 1 week or blood in stool. Acute infe ctious conjunctivitis 647982214 H10.32 [id number] Call office with any trouble seeing, eye pain or if having continued drainage after 3 days of treatment. Wash hands often with soap and water. Avoid touching your eyes. Avoid sharing towels, bedding or other personal items with others. [id number] Ted Velasco MD [facility] ([facility]) [address] [place] [address] [id number] 5 02/09/2025 09:25:39 02/12/2025 10:18:02 Viral screening 267205842 Z11.59 [id number] Essential hypertension 04473829 I10 Anxiety 94483557 F41.9 99893 Paranoid schizophrenia 38317493 F20.0 appears more stable [id number] Ted Velasco MD [facility] ([facility]) [address] [place] [address] [id number] 5 03/23/2025 12:38:00 03/26/2025 11:09:38 Generalized anxiety disorder 80830623 F41.1 Essential hypertension 72567271 I10 Nicotine dependence 5629 4008 F17.200 Tobacco de pendence caused by cigarettes 4985300083 3832860 F17.210 Chronic constipation 236 112205 K59.09 442671 Health Concerns Section Related Observation LastModified by Organization Detai ls LastModified Time None Recorded Concern Status LastModified by Organization Details LastModified Time None Recorded Advance Directives Directive None Recorded Payers Insurance Date Sequence Insurance Name Policy Number Policy Sharma Covered Member ID Sharma Member ID Guarantor Name 03/23/2025 2 [place] Yahaira Meyer [id number] Yahaira Meyer 03/23/2025 1 [facility] (MEDICARE REPLACEMENT/A DVANTAGE - PPO) Yahaira Meyer [id number] Yahaira Meyer 03/23/2025 [place]: [facility] Sirisha) Yahaira Meyer [id number] Yahaira Meyer Notes Date Note Type Note Provider Name and Address Organization Details Recorded Time 5 text/html Hypertension IM/FMReported by PatientHPIFor quality, patient reportshere for check-up. For duration, patient reportshtn present for ___ years. For onset/timing, patient reportsgradual onset. For alleviating factors, patient reportsmedication. COPDReported by PatientHPI:For duration, patient reportschronicandhas noted for years. For severity, patient reportsnot limiting. For context, patient reportscigarette smoking. For associated symptoms, patient reportsno coughandno wheezing.ROS as noted in the [facility] Patient seen today by Dr. Velasco at [facility] schizophreniashe reports beetles and other bugs crawling/flying out of her vagina. she will see psychiatry later today. her nurse is going with her and will make sure that this is made known. Ted Velasco MD [address] [place] [address], [phone], [facility], [facility] 10/21/2024 12:32:14 5 text/html Hypertension IM/FMReported by PatientHPIFor quality, patient reportshere for check-up. For duration, patient reportshtn present for ___ years. For onset/timing, patient reportsgradual onset. For alleviating factors, patient reportsmedication. COPDReported by PatientHPI:For duration, patient reportschronicandhas noted for years. For severity, patient reportsnot limiting. For context, patient reportscigarette smoking. For associated symptoms, patient reportsno coughandno wheezing.ROS as noted in the [facility] Patient seen today by Dr. Velasco at [facility] mouth pain: Patient reports that for several weeks her left lower gums have been very sore. She does report bleeding from the gums when she brushes her teeth. She reports that it is painful to eat also. Patient has been exercising and is losing weight. Ted Velasco MD [address] [place] [address], [phone], [facility], [place]. 02/13/2025 08:44:00 5 text/html ROS as noted in the HPI walk-in; PCP Dr. Velasco Patient states she's been having some episodes of diarrhea. She lives [facility] and states the stomach bug is going around the facility. She also is having trouble with her left eye. It's red and has had some discharge the last two days. States that the drainage is yellow green HAY KNIGHT [address] [place], [phone], [facility], [place] 01/23/2025 11:02:02 5 text/html Hypertension IM/FMReported by PatientHPIFor quality, patient reportshere for check-up. For duration, patient reportshtn present for ___ years. For onset/timing, patient reportsgradual onset. For alleviating factors, patient reportsmedication. For associated symptoms, patient reportsno shortness of breathandno chest pain. For severity, (137/95 134/85 168/94 119/81 136/95 154/95 171/106 149/103. pulse 74 75 80 84 86 77 62 54).ROS as noted in the HPI Ted Velasco MD [address] [place], [phone], [facility], [place] 03/23/2025 13:08:40 OBGyn Episode No OBEpisode recorded.
--- OUTSIDE RECORDS SUMMARY | 2025-03-29 18:08 | XMS_ITS | Continuity of Care Document ---
Author Organization Linda Hernandez, [facility] ([facility]) Address [address] [place] [address] Care Team Providers Care Processor Grain Name Role Phone TED BAPTISTE Primary Care Provider Unavailabl e Assessment Encounter Date Assessment Date Assessment LastModified by Organization Details LastModified Time 03/23/2025 03/23/2025 she is exercising and has quit smoking today. she requests lozenges and patches. if she is consistent with change will continue these. [email or web address] Not available 03/23/2025 13:05:28 Plan of Treatment Reminders Order Date Submit Date Provider Last Modified By Organization Details Last Modified Time Details Appointments None recorded. Lab None recorded. Referral None recorded. Procedures None recorded. Surgeries None recorded. Imaging None recorded. Medication Orders psyllium husk 3 gram/3 gram oral powder 2024 [facility], [address] [place] [address], [id number], 15:13:38 nicotine (polacrilex ) 4 mg buccal lozenge 2024 [facility], [address] [place] [address], [id number], 14:55:53 irbesartan 300 mg tablet 2024 [facility], [address] [place] [address], [id number], 15:13:23 nicotine 21 mg/24 hr daily transdermal patch 2024 [facility], [address] [place] [address], [id number], 5 14:55:52 Patient TargetsNo targets recorded. Patient InstructionsNo instructions recorded. Reason for Referral None Reported. Problems Name Problem SNOMED Code Status Onset Date Resolution Date Notes Provider Name and Address Organization Details Recorded Time Severe obesity 5815778991221 4 Active 2022 MARTHA snow [facility], Sirisha.L.CYobany 5 08:37:55 Tobacco dependence caused by cigarettes 9054832965231 9107 Active 2022 MARTHA snow [facility], EnedinaLYobanyCYobany 5 08:26:01 Chronic obstructive pulmonary disease 80787583 Active 2022 MARTHA snow [facility], L.L.CYobany 3 14:15:32 Paranoid schizophren ia 10504608 Active 2022 MARTHA snow [facility], L.L.CYobany 3 14:15:51 Generalized anxiety disorder 46404389 Active 2023 MARTHA snow [facility], L.L.CY[facility]any 5 08:37:55 Essential hypertensio n 04782350 Active 2024 MARTHA snow [facility], L.L.CYobany 5 08:26:01 Hiatal hernia 52037701 Active 2024 small, first seen on LD CT 07/2024 MARTHA snow [employer], L.L.CYobany 5 08:26:01 Problem Notes None recorded. Procedures Surgical History Date Name Laterality Status Provider Name and Address Organization Details Recorded Time 3 Most Recent Mammogram completed MARTHA VALDEZ [facility], L.LYobanyCYobany 01/15/2023 14:17:41 3 mammography completed THEODORE BALBUENA [facility], [place] 11/22/2022 18:47:16 3 screening for malignant neoplasm of colon completed MARTHA VALDEZ [facility], [place] 01/15/2023 14:16:43 9 Date of Last Pap Smear completed RAY BAPTISTE PA-C [address] [place], [address], [facility], Linda 09/17/2022 13:01:59 9 section completed Mary Adi [facility], Linda 10/29/2023 14:23:48 6 section completed Mary Adi [facility], Linda 10/29/2023 14:23:14 5 section completed Mary Adi [facility], [place] 10/29/2023 14:23:01 Imaging Results None recorded. [...] 22 7:59AM by Martha Valdez LPN (Authori anoop through Ted Baptiste MD), Office Visit; Refill Quantity : 1; [...] Not Available Vitals Date Recorded Body height Body mass index (BMI) Body weight Body temperature Oxygen saturation Oxygen saturation in Arterial blood by Pulse oximetry Heart rate Systolic And Diastolic Provider Name and Address Organization Details Last Updated DateTime 168.91 cm 42.9 kg/m2 014730. 94 g 97.9 [degF] 96 % 96 % 56 /min 152/90 mm[Hg] MARTHA VALDEZ [facility] 12:52:38 Social History Question Answer Notes LastModified by GreatCall Details LastModified Time Tobacco Smoking Status Current Every Day Smoker Ted Baptiste MD [address] [place] [address], [phone], [facility] 01/21/2024 12:15:26 What Was The Date Of Your Most Recent Tobacco Screening? 10/20/2024 [email or web address] Information not available 10/20/2024 What Is Your Current Pack Years? [email or web address] ears [email or web address] Information not available 07/21/2024 How Much Tobacco Do You Smoke? 1 PPW [email or web address] Information not available 07/21/2024 Sex: Unknown Functional Status Question Answer Note LastModified by HelloTel ion Details LastModified Time Do you use any illicit or recreational drugs? No [email or web address] Information not available 01/15/2023 Do you or have you ever used any other forms of tobacco or nicotine? No Information not available 01/15/2023 What is your level of alcohol consumption? None [email or web address] Information not available 01/15/2023 Mental Status None recorded. Family History Relationship Description Onset Age of this Age Resolved Age Notes LastModified by Organization Details LastModified Time Father Diabetes mellitus [email or web address] Not available 2022 12:20:07 Mother Diabetes mellitus Not available 2022 12:20:07 Sister Pulmonary embolism [email or web address] Not available 2022 12:20:22 Sister Malignant neoplasm of breast [email or web address] Not available 03/23 12:50:51 Medical History Condition Response Coronary Artery Disease N Other N Gout N Kidney Stones N Blood Diseases N Hyperthyroidism N Breast Cancer N Blood Transfusion N Depression N Hypothyroidism N Lung Disease N COPD N Defects or Inherited Disease N Developmental or Behavioral Disorders N Breast Problem N Difficulty Swallowing N Anesthesia Complications N Meniere's disease N Anxiety Disorder N Muscle, Joint, or Bone Problems N Vision or Eye Problems N Arthritis N Polyps N Infertility N Cancer N Varicosities N Stroke N Endometriosis N Bladder or Kidney Problems [...] Immunizations Vaccine Type Date Status Note Provider Daniel marin and Address Organization Details Recorded Time influenza, intradermal, quadrivalent, preservative free 6 completed Yahaira snow [facility], .L.CYobany 11/20/2022 09:36:05 Influenza, MDCK, quadrivalent, PF 2 completed Yahaira Lou [facility], [facility] 11/20/2022 09:36:05 Influenza, MDCK, quadrivalent, PF 9 completed Yahaira Lou [facility] 11/20/2022 09:36:05 COVID-19, mRNA, LNP-S, PF, 100 mcg/0.5mL dose or 50 mcg/0.25mL dose 1 completed Yahaira Lou [facility], [facility] 11/20/2022 09:36:05 COVID-19, mRNA, LNP-S, PF, 100 mcg/0.5mL dose or 50 mcg/0.25mL dose 1 completed [facility], L.L.CYobany 11/20/2022 09:36:05 COVID-19, mRNA, LNP-S, PF, 100 mcg/0.5mL dose or 50 mcg/0.25mL dose 2 completed [facility] Lou [facility] 11/20/2022 09:36:05 Pneumococcal conjugate PCV20, polysaccharide [id number] conjugate, adjuvant, PF 3 completed [facility], L.L.CYobany 11/20/2022 09:36:06 COVID-19, mRNA, LNP-S, bivalent, PF, 50 mcg/0.5 mL or 25mcg/0.25 mL dose 3 completed [facility], L.L.CY[facility]any 11/20/2022 09:36:06 pneumococcal polysaccharide PPV23 6 completed [facility], L.L.[facility]any 11/20/2022 09:36:06 [facility]dap 2 [facility], L[facility]any 11/20/2022 09:36:06 Influenza, split virus, quadrivalent, PF 7 completed Yahaira Blake null, [facility] 11/20/2022 09:36:06 COVID-19, mRNA, LNP-S, PF, 50 mcg/0.5 mL 4 completed MARTHA VALDEZ null, [facility] 04/28/2024 08:28:08 Influenza, MDCK, trivalent, preservative 4 completed MARTHA snow, [facility] 04/28/2024 08:28:08 zoster recombinant 3 completed Ted Baptiste MD [address] [place] [address], [phone], [facility], [facility] 02/03/2023 08:06:53 Influenza, split virus, quadrivalent, PF 3 completed MARTHA VALDEZ null, [facility] 03/26/2023 13:19:57 meningococcal MCV4, unspecified formulation 8 completed Not Available [facility] 04/16/2023 08:20:53 Influenza, split virus, trivalent, preservative 8 completed Not Available [facility] 04/16/2023 08:20:53 Past Encounters Encounter ID Performer Location Encounter Start Date Encounter Closed Date Diagnosis/Indication Diagnosis SNOMED-CT Code Diagnosis ICD10 Code Diagnosis IMO Codes Diagnosis Note [id number] Ted Baptiste MD [facility] ([facility]) [address] [place] [address] 03/23/2025 12:38:00 03/26/2025 11:09:38 Generalized anxiety disorder 81855856 F41.1 Essential hypertension 00823326 I10 Nicotine dependence 5629 4008 F17.200 Tobacco de pendence caused by cigarettes 8629877445 4221741 F17.210 Chronic constipation 236 405198 K59.09 805698 Health Concerns Section Related Observation LastModified by Organization Detai ls LastModified Time None Recorded Concern Status LastModified by Organization Details LastModified Time None Recorded Payers Encounter Date Sequence Insurance Name Policy Number Policy Sharma Covered Member ID Sharma Member ID Guarantor Name 03/23/2025 1 [facility] (MEDICARE REPLACEMENT/A DVANTAGE - PPO) Yahaira Meyer [id number] Yahaira Meyer 03/23/2025 2 [place] Yahaira Meyer [id number] Yahaira Meyer Notes Date Note Type Note Provider Name and Address Organization Details Recorded Time 03/23/2025 text/html Hypertension IM/FMReported by PatientHPIFor quality, patient reportshere for check-up. For duration, patient reportshtn present for ___ years. For onset/timing, patient reportsgradual onset. For alleviating factors, patient reportsmedication. For associated symptoms, patient reportsno shortness of breathandno chest pain. For severity, (137/95 134/85 168/94 119/81 136/95 154/95 171/106 149/103. pulse 74 75 80 84 86 77 62 54).ROS as noted in the HPI Ted Baptiste MD [address] [place], [address], [facility] 03/23/2025 13:08:40 OBGyn Episode No OBEpisode recorded.
[2025-03-29 18:12] LABS: Hematocrit 40.6 % (36-47); Hemoglobin 13.20 g/dL (11.27-16.99); Mean Corpuscular HGB Conc 32.5 g/dL (30-55); Mean Corpuscular Hemoglobin 28.0 pg (27-33); Mean Corpuscular Volume 86.0 fl (85-98); Nucleated Red Blood Cells % 0 %; Platelet Count 287 10^3/cmm (157-399); Red Blood Count 4.72 10^6/uL (3.85-5.65); White Blood Count 11.36 10^3/uL (3.29-11.43)
--- NOTE | 2025-03-29 18:14 | W.ED.DIZZY ---
HPI - Dizziness General: Chief Complaint: Dizziness Stated Complaint: weakness - hypotension - drug use History of Present Illness: HPI Narrative: Patient is a 54-year-old female that reports to the emergency room from [facility] cognition challenged facility, has a guardian, with complaints of hypotension. Staff found patient smoking THC, and blood pressure was 80/50. EMS brought her to the emergency room, and gave 200 mL IV fluids, with now systolic over 100. Patient is happy, no complaints. She is aware that she broke the rules. She does not have any complaints at bedside. Associated symptoms: Denies chest pain, chills, nausea, palpitations or vomiting Associated neuro symptoms: Deny numbness in extremities Related Data Home Medications ?Medication ?Instructions ?Recorded ?Confirmed acetaminophen 500 mg tablet 1,000 mg PO Q6H PRN Pain 05/19/19 12/26/24 (Tylenol Extra Strength) magnesium hydroxide 400 mg/5 mL 30 ml PO DAILY PRN Constipation 05/19/19 12/26/24 oral suspension (Jamison Milk of Magnesia) fluticasone fur. 100 mcg-umeclid 1 inh inhalation DAILY 09/25/20 12/26/24 62.5 mcg-vilant 25 mcg inhalat.powder (Trelegy Ellipta) Lactobacill 1 cap PO DAILY 05/22/22 12/26/24 acidophilus-L.helvetic-B.bifidum 250 million cell capsule (Acidophilus Probiotic Complex) aluminum-mag hydroxide-simethicone 20 ml PO DAILY PRN 05/22/22 12/26/24 200 mg-200 mg-20 mg/5 mL oral susp multivitamin 1 tab PO DAILY 05/22/22 12/26/24 psyllium 2 tsp PO BID 05/22/22 12/26/24 Previous Rx's ?Medication ?Instructions ?Recorded nicotine (polacrilex) 4 mg buccal 4 mg buccal Q1H PRN nicotine 07/14/24 lozenge cravings #24 ea benztropine 1 mg tablet 1 mg PO .evening #30 tabs 12/07/24 diazepam 5 mg tablet (Valium) 5 mg PO BID PRN anxiety/agitation 12/07/24 #60 tabs propranolol 20 mg tablet 20 mg PO BID #60 tabs 12/27/24 trazodone 50 mg tablet 50 mg PO BEDTIME PRN insomnia #30 12/27/24 tabs ziprasidone HCl 20 mg capsule 20 mg PO .evening #30 caps 12/27/24 (Geodon) ziprasidone HCl 80 mg capsule 80 mg PO .evening #60 caps 12/27/24 (Geodon) Allergies Allergy/AdvReac Type Severity Reaction Status Date / Time No Known Allergies Allergy Verified 12/26/24 18:10 Review of Systems General: Reports: 10 or more systems reviewed and unremarkable except in HPI and below Const: Denies: fever(s) or chills Eyes: Denies: change in vision, blurry vision or blind spots ENMT: Denies: throat pain or mouth pain Card: Denies: chest pain or palpitations Resp: Denies: dyspnea or non-productive cough GI: Denies: abdominal pain, nausea or vomiting : Denies: flank pain or difficulty voiding Musc: Denies: neck pain, back pain or extremity pain Skin/Breast: Denies: rash or pruritus Neuro: Denies: numbness in extremities, weakness in extremities, dizziness or vertigo Psych: Denies: anxiety or depression PFS ED PFSH: Medical History (Updated 03/29/25 @ 19:06 by BETH Spain) Drug induced akathisia Drug-induced tardive dystonia Psychiatric care Borderline intellectual functioning Cigarette nicotine dependence Schizoaffective disorder, bipolar type delivery delivered three times Social History Smoking and tobacco/nicotine status: current every day tobacco/nicotine user cigarettes Packs smoked per day: 1 Years cigarettes smoked: 20 Quit status (tobacco/nicotine): considering quitting Second hand smoke exposure: Yes Physical Exam Const: COMMON NORMALS: patient oriented x3 and alert ORIENTATION/CONSCIOUSNESS: Yes oriented to person, Yes oriented to place and Yes oriented to time HENMT: COMMON NORMALS: normocephalic, atraumatic, hearing grossly normal bilaterally, external ears normal, EAC's normal and TM's normal bilaterally HEAD & SCALP: normocephalic and atraumatic FACE & SINUS: normal facial exam, sinuses nontender and face symmetric EXTERNAL EAR: Yes external ears normal EXTERNAL AUDITORY CANAL: EAC's normal TYMPANIC MEMBRANE: TM's normal bilaterally Eye: COMMON NORMALS: Equal, round and reactive pupils present, EOMs intact bilaterally and conjunctivae normal CONJUNCTIVA: Yes conjunctivae normal PUPIL: Yes Equal, round and reactive pupils present Neck/C-Spine: COMMON NORMALS: full ROM and no meningeal signs CERVICAL SPINE: Yes cervical ROM normal, Yes normal cervical lordosis, No Cervical spine tenderness, No step off deformity, No Paracervical muscle tenderness and No Paracervical spasm OTHER: No pain with palpation, no pain with stimulated palpation Lymph: LYMPHATIC: no lymphadenopathy noted Chest: COMMONS NORMALS: normal inspection of the chest and normal palpation of entire chest wall Resp: COMMON NORMALS: normal respiratory effort, No retractions and clear to auscultation bilaterally AUSCULTATION: clear to auscultation bilaterally Cardio: COMMON NORMALS: regular rate and regular rhythm RATE: regular rate RHYTHM: regular rhythm GI: COMMON NORMALS: Normal to inspection, nondistended, normoactive bowel sounds present and Soft to palpation PALPATION: Yes Soft to palpation : COMMON NORMALS: Yes no CVA tenderness BLADDER/KIDNEY EXAM: Yes no CVA tenderness Back/Pelvis: COMMON NORMALS: no CVA tenderness Extremity: COMMON NORMALS: normal to inspection, full ROM and capillary refill normal Neuro: COMMON NORMALS: patient oriented x3 SENSORIUM/ORIENTATION: Yes alert, Yes oriented to person, Yes oriented to place and Yes oriented to time MENINGEAL SIGNS: Yes no meningeal signs MOTOR EXAM: 5/5 motor strength present throughout OTHER: Resting nystagmus Psych: COMMON NORMALS: mental status grossly normal and Normal thought process present THOUGHT PROCESS: Normal thought process present Course Vital Signs: Vital signs: Vital Signs Temperature 97.8 F 03/29/25 18:04 Pulse Rate 72 03/29/25 19:37 Respiratory Rate 16 03/29/25 18:04 Blood Pressure 101/51 03/29/25 18:04 Pulse Oximetry 92 03/29/25 19:37 Oxygen Delivery Me thod Room Air 03/29/25 19:37 MDM - Dizziness Medical Decision Making Patient is a 54-year-old female reports to the emergency room after striking 2 joints of THC at the facility she lives at. Her blood pressure was low. IV fluids x 1 L improved this issue. Recommended no more marijuana. Patient states understanding. No other concerns except for mild elevation of her creatinine at 1.2 typically 0.9?1.0. Medical Records I reviewed the patient's medical records. Lab Data I reviewed the patient's lab results. 03/29/25 17:47 03/29/25 17:47 Laboratory Results WBC 11.36 10^3/uL (3.29-11.43) 03/29/25 17:47 RBC 4.72 10^6/uL (3.85-5.65) 03/29/25 17:47 Hgb 13.20 g/dL (11.27-16.99) 03/29/25 17:47 Hct 40.6 % (36-47) 03/29/25 17:47 MCV 86.0 fl (85-98) 03/29/25 17:47 MCH 28.0 pg (27-33) 03/29/25 17:47 MCHC 32.5 g/dL (30-55) 03/29/25 17:47 RDW 13.6 % (12.1-15.1) 03/29/25 17:47 Plt Count 287 10^3/cmm (157-399) 03/29/25 17:47 MPV 9.8 fL (7.4-10.4) 03/29/25 17:47 Neut % (Auto) 65.9 % 03/29/25 17:47 Lymph % (Auto) 25.3 % 03/29/25 17:47 Tift % (Auto) 6.4 % 03/29/25 17:47 Eos % (Auto) 1.6 % 03/29/25 17:47 Baso % (Auto) 0.5 % 03/29/25 17:47 Neut # (Auto) 7.49 10^3/uL (1.8-7.7) 03/29/25 17:47 Lymph # (Auto) 2.9 10^3/uL (0.8-4.8) 03/29/25 17:47 Tift # (Auto) 0.7 10^3/uL (0.2-0.9) 03/29/25 17:47 Eos # (Auto) 0.2 10^3/uL (0.0-0.8) 03/29/25 17:47 Baso # (Auto) 0.1 10^3/uL (0.0-0.1) 03/29/25 17:47 Nucleated RBC % (auto) 0 % 03/29/25 17:47 Nucleated RBCs # 0.0 /100WBC 03/29/25 17:47 Sodium 139 mmol/L (136-145) 03/29/25 17:47 Potassium 4.2 mmol/L (3.5-5.1) 03/29/25 17:47 Chloride 103 mmol/L (98-107) 03/29/25 17:47 Carbon Dioxide 25 mmol/L (22-29) 03/29/25 17:47 Anion Gap 15.2 (5-19) 03/29/25 17:47 BUN 14 mg/dL (6-20) 03/29/25 17:47 Creatinine 1.2 mg/dL (0.5-0.9) H 03/29/25 17:47 GFR Calculation 47.0 mL/min (90-130) L 03/29/25 17:47 Glucose 136 mg/dL (65-115) H 03/29/25 17:47 Calculated Osmolality 291 mOsm/kg (285-295) 03/29/25 17:47 Calcium 8.7 mg/dL (8.5-10.5) 03/29/25 17:47 Total Bilirubin 0.4 mg/dL (0.15-1.2) 03/29/25 17:47 AST 22 U/L (0-32) 03/29/25 17:47 ALT 21 U/L (0-33) 03/29/25 17:47 Alkaline Phosphatase 95 U/L (35-105) 03/29/25 17:47 Total Protein 6.8 g/dL (6.6-8.7) 03/29/25 17:47 Albumin 3.9 g/dL (3.5-5.2) 03/29/25 17:47 Globulin 2.9 g/dL (1.3-4.6) 03/29/25 17:47 All radiology interpretation(s) finalized by discharge EKG Data EKG 1: Interpretation: Normal sinus rhythm, left axis, no ST segment elevation Discharge Plan Discharge Patient Disposition: Home Clinical Impression: Marijuana intoxication, Acute hypotension Condition: Stable Prescriptions: No Action magnesium hydroxide [Jamison Milk of Magnesia] 400 mg/5 mL suspension 30 ml PO DAILY PRN (Reason: Constipation) acetaminophen [Tylenol Extra Strength] 500 mg tablet 1,000 mg PO Q6H PRN (Reason: Pain) Trelegy Ellipta 100-62.5-25 mcg blister with device 1 inh inhalation DAILY ziprasidone HCl [Geodon] 80 mg capsule 80 mg PO .evening Qty: 60 3RF Rx Instructions: Take one capsule, 80 mg, at noon with lunch and one capsule with 20 mg capsule in evening, total dose 100 mg with dinner in evening, 500 jim of food ziprasidone HCl [Geodon] 20 mg capsule 20 mg PO .evening Qty: 30 6RF Rx Instructions: Take one capsule in evening at dinner, with 80 mg capsule, total dose 100 mg, give with 500 calorie meal trazodone 50 mg tablet 50 mg PO BEDTIME PRN (Reason: insomnia) Qty: 30 3RF Rx Instructions: Take one tablet at bedtime as needed for sleep propranolol 20 mg tablet 20 mg PO BID Qty: 60 3RF Rx Instructions: Take one tablet twice per day multivitamin Tablet 1 tab PO DAILY psyllium Powder 2 tsp PO BID Rx Instructions: mix into at least 8 oz of water or juice before administering alum-mag hydroxide-simeth 200-200-20 mg/5 mL suspension 20 ml PO DAILY PRN Rx Instructions: for GERD Acidophilus Probiotic Complex 250 million cell capsule 1 cap PO DAILY nicotine (polacrilex) 4 mg lozenge 4 mg BUCCAL Q1H PRN (Reason: nicotine cravings) Qty: 24 6RF Rx Instructions: May take one nicotine lozenge-do not exceed more than 20 oz/day or 5 oz in 6 hr diazepam [Valium] 5 mg tablet 5 mg PO BID PRN (Reason: anxiety/agitation) Qty: 60 2RF Rx Instructions: Take one tablet twice per day as needed for anxiety/agitation benztropine 1 mg tablet 1 mg PO .evening Qty: 30 6RF Rx Instructions: Take one tablet every evening Discharge Orders: Discharge ED (Routine); Ordered 03/29/25 Ordered By: Hillary Santoro Referrals: Tyson Velasco MD [Primary Care Provider, Family Practice] Discharge Diet: Low Salt Patient Instructions: Marijuana Abuse, Dehydration (ED), Patient Portal & Felecia Instructions Activity Restrictions/Additional Instructions: - Increase the amount of noncaffeinated beverages you have today. Drink additional 1 L at home. - Avoid marijuana use - Take care of yourself Thank you for choosing [facility] for your healthcare needs today. You have been screened and evaluated and felt safe for discharge. Health conditions do change or evolve sometimes and as such it is important that you follow up with your Primary Doctor to be re checked, 3-5 days is a general good time frame for follow up. You are always welcome to return to the ED for re assessment if your symptoms are worsening or you have new concerns Print Language: Turkish Coding Level of Care Code ED Mutual Fund Manager for Geri Royal
[2025-03-29 18:38] LABS: Alanine Aminotransferase 21 U/L (0-33); Albumin Level 3.9 g/dL (3.5-5.2); Alkaline Phosphatase 95 U/L (35-105); Anion Gap 15.2 (5-19); Aspartate Amino Transferase 22 U/L (0-32); Blood Urea Nitrogen 14 mg/dL (6-20); Calcium 8.7 mg/dL (8.5-10.5); Carbon Dioxide 25 mmol/L (22-29); Chloride 103 mmol/L (98-107); Globulin 2.9 g/dL (1.3-4.6); Glucose 136 mg/dL (65-115); Osmolality Calculated 291 mOsm/kg (285-295); Potassium 4.2 mmol/L (3.5-5.1); Sodium 139 mmol/L (136-145); Total Protein 6.8 g/dL (6.6-8.7)
[2025-03-29 19:37] VITALS: PULSE 72; O2SAT 92
== END 2025-03-29 21:03 | disposition home or self-care (01) ==
PROVIDERS: Emergency Provider Physician Assistant; PCP Family Medicine
DX: I95.89 Other hypotension (principal); F12.929 Cannabis use, unspecified with intoxication, unspecified; F17.210 Nicotine dependence, cigarettes, uncomplicated
CPT/HCPCS: 80053; 85025; 93005; 96360; 96361; 99284; J7120

== ENCOUNTER 2025-05-16 12:44 | Emergency (ER) | payer MEDICARE, MEDICAID, SELFPAY ==
--- OUTSIDE RECORDS SUMMARY | 2018-01-04 07:50 | XMS_ITS | Continuity of Care Document ---
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 Invega Sustenna 234 mg/1.5 mL intramuscular syringe inject 1.5 milliliter by intramuscular route every month 234 MG - Active Milk of Magnesia 400 mg/5 mL oral suspension take 30 milliliter by oral route every day as needed, followed by a full glass (8 oz) of liquid 30.00 milliliter - Active Mi-Acid 200 mg-200 mg-20 mg/5 mL oral suspension take 20 milliliter by oral route between meals and at bedtime as needed 20 milliliter - Active acetaminophen 500 mg tablet take 2 tablet by oral route every 6 hours as needed 1000 MG - Active nicotine 14 mg/24 hr daily transdermal patch apply 1 patch by transdermal route every day 14 MG - Active ranitidine 150 mg tablet take 1 tablet by oral route 2 times every day as needed - Active medroxyprogesterone 10 mg tablet take 1 tablet by mouth once a day the first 10 days of each month - Active Cymbalta 30 mg capsule,delayed release take 1 capsule by oral route every day 30 MG - No Longer Active Procedures Procedure Date Periodontal Maintenance Bitewing Four Films PHQ2 Screening OFFICE/OUTPATIENT VISIT, EST Local Anesthesia Two Surface Anterior Resin Comp 018 One Surface Anterior Resin Comp 018 OFFICE/OUTPATIENT VISIT, EST Local Anesthesia Two Surface Amalgam OFFICE/OUTPATIENT VISIT, EST [facility] Noncovered Periodic Exam Caries Risk Assessment And Doc Moderate Risk Non Sealable Follow Up Periodontal Scaling And Root Planing-Fou r Or More Periodontal Scaling And Root Planing-Fou r Or More Anterior (Excluding Final Adventism) M Local Anesthesia Local Anesthesia Comprehensive Periodontal Evaluation-New Or Establ Periodontal Scaling And Root Planing-Fou r Or More Periodontal Scaling And Root Planing-Fou r Or More OFFICE/OUTPATIENT VISIT, EST OFFICE/OUTPATIENT VISIT, EST OFFICE/OUTPATIENT VISIT, EST OFFICE/OUTPATIENT VISIT, EST OFFICE/OUTPATIENT VISIT, EST OFFICE/OUTPATIENT VISIT, EST OFFICE/OUTPATIENT VISIT, EST OFFICE/OUTPATIENT VISIT, EST Pulp Cap-Indirect (Excluding Final Juvenal ration) One Surface Posterior Resin Comp 2015 Panoramic Film Bitewing Four Films Intraoral Periapical First Film 016 Intraoral Periapical Each Additional Dec Intraoral Periapical Each Additional Dec Intraoral Periapical Each Additional Dec Intraoral Periapical Each Additional Dec Comprehensive Evaluation Caries Risk Assessment And Doc Moderate Risk Comprehensive Periodontal Evaluation-New Or Establ OFFICE/OUTPATIENT VISIT, EST OFFICE/OUTPATIENT VISIT, EST OFFICE/OUTPATIENT VISIT, EST OFFICE/OUTPATIENT VISIT, EST OFFICE/OUTPATIENT VISIT, EST OFFICE/OUTPATIENT VISIT, EST OFFICE/OUTPATIENT VISIT, EST OFFICE/OUTPATIENT VISIT, EST Advance Directives Directive Yes / No Effective Date File Name No Information Encounters Encounter Description Practice Location Reason(s) For Visit Diagnoses Date Provider Providers Copied on Encounter [facility] [address] [facility], [place], [id number], [place] tel:[phone] [facility] No Information Keyla Muniz. [address], [id number] [facility] [place] [id number], [place]. tel:[phone] [facility], [address] [place], [place] [address]atio ns [facility], [place], [id number], [place] tel:[phone] [facility] Dental Encounter for dental exam and cleaning w/o abnormal findings 8 Caitlin Fisher. [address], [id number] [facility] [place], [id number], [place]. tel:[phone] Referring Provider: Crispin Mcrae Dr [id number] [place], [address]. tel:[phone] ing Provider: Crispin Mcrae Communicatio osmany Conner [id number] , [place], [address]. tel:[phone] OFFICE/OUTPA TIENT VISIT, EST [facility], [address] [place], [id number], [place] tel:[phone] [facility] Schizophreni aOther stimulant dependence, in remissionAlc ohol dependence, in remissionTob acco useBody mass index (BMI) 40.0-44.9, adult 8 Keyla Muniz. [address], [id number], [place], [id number], [place]. tel:[phone] Referring Provider: Flavio Ramires, [address] [id number] , [place], [address]. tel:[phone] [facility], [address], [place], [id number], [place] tel:[phone] [facility] No Information 8 Keyla Muniz. [address], [id number] 0, [place], [id number], [place]. tel:[phone] [facility], [address], [place], [id number], [place] tel:[phone] [facility] No Information 8 Keyla Muniz. [address], [id number] 0, [place], [id number], [place]. tel:[phone] [facility], [address], [place], [id number], [place] tel:[phone] [facility] Dental Encounter for dental exam and cleaning w/o abnormal findings 8 Caitlin Fisher. [address], [id number] [facility] [place], [id number], [place]. tel:[phone] Referring Provider: Natalia Tucker, [address] [id number] , [place], [address]. tel:[phone] OFFICE/OUTPA TIENT VISIT, EST [facility], [address], [place], [id number], [place] tel:[phone] [facility] Schizophreni aOther stimulant dependence, in remissionAlc ohol dependence, in remissionTob acco useBody mass index (BMI) 40.0-44.9, adult May-0 8 Keyla Muniz. [address], [id number], [place], [id number], [place]. tel:[phone] Referring Provider: Flavio Ramires, [address] [id number] [place], [address]. tel:[phone] [facility], [address], [place], [id number], [place] tel:[phone] [facility] Encounter for dental exam and cleaning w/o abnormal findings Aug- 8 Caitlin Fisher. [address], [id number] 0, [place], [id number], [place]. tel:[phone] Referring Provider: Natalia Tucker, [address] [id number] , [place], [address]. tel:[phone] OFFICE/OUTPA TIENT VISIT, EST [facility], [facility] [address], [place], [id number], [place] tel:[phone] [facility] Schizophreni aOther stimulant dependence, in remissionAlc ohol dependence, in remissionTob acco useBody mass index (BMI) 40.0-44.9, adult Apr-0 8 Keyla Muniz. [address], [id number] [facility], [place], [id number], [place]. tel:[phone] Referring Provider: Flavio Ramires, [address] [id number] [place], [address]. tel:[phone] [facility], [facility] [address], [place], [id number], [place] tel:[phone] [facility] Encounter for dental exam and cleaning w/o abnormal findings Jul-2 8 Caitlin Fisher. [address], [id number], [place], [id number], [place]. tel:[phone] Referring Provider: Siobhan Prajapati, [address] [id number] [place], [address]. tel:[phone] ing Provider: Crispin Mcrae Communicatio osmany Conner [id number] , [place], [address]. tel:[phone] [facility], [address] [place], [id number], [place] tel:[phone] [facility] Encounter for dental exam and cleaning w/o abnormal findings 8 Caitlin Fisher. [address], [id number] [address] [place], [place] [address], [id number], [place]. tel:[phone] Referring Provider: Crispin Mcraeo osmany Conner [id number] , [place], [address]. tel:[phone] Provider: Crispin Mcrae Dr [id number] , [place], [address]. tel:[phone] [facility], [address] [place], [id number], [place] tel:[phone] [facility] Encounter for dental exam and cleaning w/o abnormal findings 8 Caitlin Fisher. [address], [id number] [facility] [place], [id number], [place]. tel:[phone] Referring Provider: Natalia Tucker, [address] [id number] [place], [address]. tel:[phone] [facility], [address] [place], [id number], [place] tel:[phone] [facility] Encounter for dental exam and cleaning w/o abnormal findings 8 Caitlin Fisher. [address], [id number] [facility] [place], [id number], [place]. tel:[phone] Consulting Provider: Crispin Mcraeo osmany Conner [id number] , [place], [address]. tel:[phone] [facility], [address], [place], [id number], [place] tel:[phone] [facility] Dental Encounter for dental exam and cleaning w/o abnormal findings 7 Caitlin Fisher. [address], [id number] [facility], [place], [id number], [place]. tel:[phone] Referring Provider: Siobhan Prajapati, Crispin Singhatio osmany Conner [id number] , [place], [address]. tel:[phone] ing Provider: Siobhan Prajapati, Crispin Singhatio osmnay Conner [id number] , [place], [address]. tel:[phone] OFFICE/OUTPA TIENT VISIT, EST [facility], [address], [place], [id number], [place] tel:[phone] [facility] Body mass index (BMI) 39.0-39.9, adultSchizop hreniaOther stimulant dependence, in remissionAlc ohol dependence, in remissionTob acco useBody mass index (BMI) 40.0-44.9, adult Sep- 7 Keyla Muniz. [address], [id number] [facility] [place], [id number], [place]. tel:[phone] Referring Provider: Flavio Ramires, [address] [id number] [place], [address]. tel:[phone] [facility], [address], [place], [id number], [place] tel:[phone] [facility] No Information 7 Keyla Muniz. [address], [id number] 0, [place], [id number], [place]. tel:[phone] OFFICE/OUTPA TIENT VISIT, EST [facility], [address], [place], [id number], [place] tel:[phone] [facility] Schizophreni aOther stimulant dependence, in remissionAlc ohol dependence, in remissionTob acco useBody mass index (BMI) 40.0-44.9, adult Horacio- 7 Keyla Muniz. [address], [id number] [address], [place], [place], [id number], [place]. tel:[phone] Referring Provider: Flavio Ramires, [address] [id number] [place], [address]. tel:[phone] OFFICE/OUTPA TIENT VISIT, EST [facility], [address], [place], [place], [id number], [place] tel:[phone] [facility] Body mass index (BMI) 40.0-44.9, adultSchizop hreniaOther stimulant dependence, in remissionAlc ohol dependence, in remissionTob acco use 7 Keyla Muniz. [address], [id number] 0, [place], [place], [id number], [place]. tel:[phone] OFFICE/OUTPA TIENT VISIT, EST [facility], [address], [place], [place], [id number], [place] tel:[phone] [facility] Schizophreni aOther stimulant dependence, in remissionAlc ohol dependence, in remissionTob acco use 7 Keyla Muniz. [address], [id number] [address], [place], [id number], [place]. tel:[phone] Referring Provider: Flavio Ramires, [address] [id number] [place], [address]. tel:[phone] OFFICE/OUTPA TIENT VISIT, EST [facility], [address], [place], [place], [id number], [place] tel:[phone] [facility] Body mass index (BMI) 40.0-44.9, adultSchizop hreniaOther stimulant dependence, in remissionAlc ohol dependence, in remissionTob acco use 7 Keyla Muniz. [address], [id number] [place], [id number], [place]. tel:[phone] Referring Provider: Flavio Ramires, [address] [id number] [place], [address]. tel:[phone] OFFICE/OUTPA TIENT VISIT, EST [facility], [address], [place], [id number], [place] tel:[phone] [facility] Schizophreni aOther stimulant dependence, in remissionAlc ohol dependence, in remissionTob acco use 7 Keyla Muniz. [address], [id number] [place], [id number], [place]. tel:[phone] Referring Provider: Flavio Ramires, [address] [id number] [place], [address]. tel:[phone] OFFICE/OUTPA TIENT VISIT, EST [facility], [address], [place], [id number], [place] tel:[phone] [facility] Schizophreni aOther stimulant dependence, in remissionAlc ohol dependence, in remissionTob acco use 6 Keyla Muniz. [address], [id number] [place], [id number], [place]. tel:[phone] Referring Provider: Flavio Ramires, [address] [id number] [place], [address]. tel:[phone] OFFICE/OUTPA TIENT VISIT, EST [facility], [address], [place], [id number], [place] tel:[phone] [facility] Schizophreni aOther stimulant dependence, in remissionAlc ohol dependence, in remissionTob acco use 6 Keyla Muniz. [address], [id number] [facility], [place], [id number], [place]. tel:[phone] Referring Provider: Flavio Ramires, [address] [id number] , [place], [address]. tel:[phone] [facility], [address], [place], [id number], [place] tel:[phone] [facility] Encounter for dental exam and cleaning w/o abnormal findings 6 Tucker Natalia. [address], [id number] [facility] [place], [id number], [place]. tel:[phone] [facility], [address], [place], [id number], [place] tel:[phone] [facility] Encounter for dental exam and cleaning w/o abnormal findings 6 Tuckerchristopher Fisher. [address], [id number] [address] [place], [place] [address], [id number], [place]. tel:[phone] Consulting Provider: Siobhan Prajapati, [address] [id number] , [place], [address]. tel:[phone] OFFICE/OUTPA TIENT VISIT, EST [facility], [address], [place], [id number], [place] tel:[phone] [facility] Schizophreni aOther stimulant dependence, in remissionAlc ohol dependence, in remissionTob acco use 6 Ashley Conway. . Referring Provider: [place] rao tel:[phone] OFFICE/OUTPA TIENT VISIT, EST [facility], [address], [place], [id number], [place] tel:[phone] [facility] No Information 6 Torrey Page , [place], [place]. Referring Provider: Shea Pena. OFFICE/OUTPA TIENT VISIT, EST [facility], [address], [place], [id number], [place] tel:[phone] [facility] Paranoid schizophreni aDepression 6 Becky Valdivia. . Referring Provider: [place] rao tel:[phone] OFFICE/OUTPA TIENT VISIT, EST [facility], [address], [place], [id number], [place] tel:[phone] [facility] Paranoid schizophreni aDepression 5 Becky Valdivia. . OFFICE/OUTPA TIENT VISIT, EST [facility], [address], [place], [id number], [place] tel:[phone] [facility] No Information 5 Дмитрий [place]. . [facility], [address], [place], [id number], [place] tel:[phone] [facility] Chronic paranoid schizophreni aAlcohol dependenceAn xiety disorder 5 Дмитрий [place]. . OFFICE/OUTPA TIENT VISIT, EST [facility], [address], [place], [id number], [place] tel:[phone] [facility] No Information 5 Дмитрий [place]. . OFFICE/OUTPA TIENT VISIT, EST [facility], [address], [place], [id number], [place] tel:[phone] [facility] No Information 5 Дмитрий Kimo. . OFFICE/OUTPA TIENT VISIT, EST [facility], [address], [place], [id number], [place] tel:[phone] [facility] No Information 3 5 Дмитрий Kimo. . Family History Family Member Type Diagnosis Age At Onset No Information Payers Payer name Insurance type Covered constitution party ID Valente simmons(s) [facility] [place] [facility] [id number] Social History Type Description Quantity Date Captured Comments Sex Female Smoking Status No Information Sexual Orientation Straight or heterosexual Gender Identity Female Chief Complaint And Reason For Visit No Information Reason For Referral Reason For Referral No Information Plan Of Treatment Date Type Action Status Goal Depression scree tarun. Due on due Goal Pap/HPV testing. Due on due Goal Tdap. Due on due Goal Td vaccine. Due on 18 due Goal Influenza vaccine. Due on due Goal Influenza vaccine. Due on due Goal Depression scree tarun. Due on due Goal Td vaccine. Due on 18 due Goal Tdap. Due on due Goal Pap/HPV testing. Due on due Goal Tdap. Due on due Goal Pap/HPV testing. Due on due Goal Influenza vaccine. Due on due Goal Depression scree tarun. Due on due Goal Td vaccine. Due on 18 due Goal Td vaccine. Due on 18 due Goal Depression scree tarun. Due on due Goal Influenza vaccine. Due on due Goal Pap/HPV testing. Due on due Goal Tdap. Due on due Goal Lifestyle education regardin g diet completed Goal Lifestyle education regardin g diet completed Goal Lifestyle education regardin g diet completed Goal Tobacco cessation counseling completed Goal Tobacco cessation counseling completed Goal Tobacco cessation counseling completed Goal Tobacco cessation counseling completed Future Order: Lab Order CBC (INC LUDES DIFF/PLT) ([id number]), Ordered on: Ordered Future Order: Lab Order COMPREHE NSIVE METABOLIC PANEL ([id number]), Ordered on: Ordered Future Order: Lab Order TSH, 3RD GENERATION ([id number]), Ordered on: Ordered Future Order: Lab Order HEMOGLOB IN A1C (496), Ordered on: Ordered Future Order: Lab Order VITAMIN D,25-OH,TOTAL,IA ([id number]), Ordered on: Ordered Future Order: Lab Order VITAMIN D, 25-HYDROXY, LC/MS/MS ([id number]), Ordered on: Ordered Future Order: Lab Order TSH, 3RD GENERATION ([id number]), Ordered on: Ordered Future Order: Lab Order LIPID PA ANTONIO ([id number]), Ordered on: Ordered Future Order: Lab Order COMPREHE NSIVE METABOLIC PANEL ([id number]), Ordered on: Ordered Future Order: Lab Order CBC (INC LUDES DIFF/PLT) (6399), Ordered on: Ordered Future Order: Lab Order HEMOGLOB IN A1C (496), Ordered on: Ordered Future Order: Lab Order VITAMIN B12/FOLATE, SERUM PANEL (7065), Ordered on: Ordered Future Order: Lab Order CBC w/di ff ([id number]), Ordered on: Ordered Future Order: Lab Order CMP ([id number]), O rdered on: Ordered Future Order: Lab Order Lipid Pa antonio ([id number]), Ordered on: Ordered Future Order: Lab Order Hemoglob in A1c ([id number]), Ordered on: Ordered Future Order: Lab Order Vitamin D, 25-Hydroxy ([id number]), Ordered on: Ordered Future Order: Lab Order Vitamin B12 and Folate ([id number]), Ordered on: Ordered Future Order: Lab Order TSH ([id number]), O rdered on: Ordered History Of Present Illness Encounter Date Complaint History Of Prese nt Illness No Information Functional Status Date Functional Assessmen t No Information Instructions Date Instruction Additional Infor mation Giving encouragement to exercise Related to Body mass index (BMI) 38.0-38.9, adult Lifestyle education regarding di et Related to Body mass index (BMI) 38.0-38.9, adult Lifestyle education regarding di et Related to Body mass index (BMI) 39.0-39.9, adult Giving encouragement to exercise Related to Body mass index (BMI) 39.0-39.9, adult Lifestyle education regarding di et Related to Body mass index (BMI) 40.0-44.9, adult Giving encouragement to exercise Related to Body mass index (BMI) 40.0-44.9, adult Giving encouragement to exercise Related to Body mass index (BMI) 40.0-44.9, adult Dietary needs education Related to Body mass index (BMI) 40.0-44.9, adult Assessments Type Assessment Date No Information Patient Care Teams Name Effective Dates (start - stop) Status Members No Information
[2025-05-16 12:52] VITALS: BP 124/86; PULSE 64; RESP 18; TEMP 36.7; O2SAT 98
--- NOTE | 2025-05-16 13:06 | W.ED.FALL ---
HPI - Fall General: Chief Complaint: Fall Stated Complaint: Fell Hit back of head Bleeding stop Time Seen by Provider: 05/16/25 13:02 Source: patient Mode of arrival: ambulatory Limitations: no limitations History of Present Illness: 54-year-old female who states that she had slipped and fell backwards at work and hit her head on concrete. She does have a small 1 similar laceration to her posterior scalp she denied any loss conscious has a very mild headache denies any vomiting denies any neck pain she is not on any blood thinners. Related Data Home Medications ?Medication ?Instructions ?Recorded ?Confirmed acetaminophen 500 mg tablet 1,000 mg PO Q6H PRN Pain 05/19/19 03/30/25 (Tylenol Extra Strength) magnesium hydroxide 400 mg/5 mL 30 ml PO DAILY PRN Constipation 05/19/19 03/30/25 oral suspension (Jamison Milk of Magnesia) fluticasone fur. 100 mcg-umeclid 1 inh inhalation DAILY 09/25/20 03/30/25 62.5 mcg-vilant 25 mcg inhalat.powder (Trelegy Ellipta) Lactobacill 1 cap PO DAILY 05/22/22 03/30/25 acidophilus-L.helvetic-B.bifidum 250 million cell capsule (Acidophilus Probiotic Complex) aluminum-mag hydroxide-simethicone 20 ml PO DAILY PRN 05/22/22 03/30/25 200 mg-200 mg-20 mg/5 mL oral susp multivitamin 1 tab PO DAILY 05/22/22 03/30/25 psyllium 2 tsp PO BID 05/22/22 03/30/25 guaifenesin 600 mg tablet, 600 mg PO BID PRN 03/30/25 03/30/25 extended release 12 hr pantoprazole 40 mg tablet,delayed 40 mg PO BID 03/30/25 03/30/25 release Previous Rx's ?Medication ?Instructions ?Recorded nicotine (polacrilex) 4 mg buccal 4 mg buccal Q1H PRN nicotine 07/14/24 lozenge cravings #24 ea benztropine 1 mg tablet 1 mg PO .evening #30 tabs 03/30/25 hydroxyzine HCl 50 mg tablet 50 mg PO BID PRN anxiety #60 tabs 03/30/25 propranolol 20 mg tablet 20 mg PO BID #60 tabs 03/30/25 trazodone 50 mg tablet 50 mg PO BEDTIME PRN insomnia #30 03/30/25 tabs ziprasidone HCl 20 mg capsule 20 mg PO .evening #30 caps 03/30/25 (Geodon) ziprasidone HCl 80 mg capsule 80 mg PO .evening #60 caps 03/30/25 (Geodon) Allergies Allergy/AdvReac Type Severity Reaction Status Date / Time No Known Allergies Allergy Verified 05/16/25 12:59 PFSH ED PFSH: Medical History Drug induced akathisia Drug-induced tardive dystonia Psychiatric care Borderline intellectual functioning Cigarette nicotine dependence Schizoaffective disorder, bipolar type delivery delivered three times Social History Smoking and tobacco/nicotine status: current every day tobacco/nicotine user cigarettes Packs smoked per day: 1 Years cigarettes smoked: 20 Quit status (tobacco/nicotine): considering quitting Second hand smoke exposure: Yes Physical Exam Const: COMMON NORMALS: no acute distress, patient oriented x3 and healthy appearing HENMT: COMMON NORMALS: normocephalic HEAD & SCALP: normocephalic OTHER: 1 cm laceration posterior scalp Eye: COMMON NORMALS: Equal, round and reactive pupils present and EOMs intact bilaterally PUPIL: Yes Equal, round and reactive pupils present Neck/C-Spine: COMMON NORMALS: full ROM and supple CERVICAL SPINE: No pain with cervical ROM and No Cervical spine tenderness Chest: COMMONS NORMALS: normal inspection of the chest Resp: COMMON NORMALS: normal respiratory effort Cardio: COMMON NORMALS: regular rate RATE: regular rate Extremity: COMMON NORMALS: normal to inspection and full ROM Neuro: COMMON NORMALS: patient oriented x3, moves all extremities and no focal motor deficits Psych: COMMON NORMALS: mental status grossly normal, Normal thought process present and cooperative THOUGHT PROCESS: Normal thought process present Skin: COMMON NORMALS: no rashes or lesions noted and no wounds GENERAL SKIN EXAM: no rashes or lesions noted Procedures Laceration Laceration 1: Site: scalp Size (cm): 1 Description: linear Depth: simple, single layer Pre-repair: wound explored and irrigated extensively Skin layer closed with: other (1 staple) Course Vital Signs: Vital signs: Vital Signs Temperature 98.1 F 05/16/25 12:52 Pulse Rate 64 05/16/25 12:52 Respiratory Rate 18 05/16/25 12:52 Blood Pressure 124/86 05/16/25 12:52 Pulse Oximetry 98 05/16/25 12:52 MDM - Fall Medical Decision Making Patient presents here with head laceration from a fall. She had no signs of intracranial hemorrhage or injury. No signs of skull fracture she had no loss conscious and only minimal headache. Neck exam is benign with no signs of C-spine injury did place 1 staple in the wound she is to return in 7 days for staple removal. No radiology studies performed this visit Discharge Plan Discharge Patient Disposition: Home Clinical Impression: Laceration of head Condition: Stable Prescriptions: No Action magnesium hydroxide [Jamison Milk of Magnesia] 400 mg/5 mL suspension 30 ml PO DAILY PRN (Reason: Constipation) acetaminophen [Tylenol Extra Strength] 500 mg tablet 1,000 mg PO Q6H PRN (Reason: Pain) Trelegy Ellipta 100-62.5-25 mcg blister with device 1 inh inhalation DAILY pantoprazole 40 mg tablet,delayed release (DR/EC) 40 mg PO BID guaifenesin 600 mg tablet extended release 12hr 600 mg PO BID PRN hydroxyzine HCl 50 mg tablet 50 mg PO BID PRN (Reason: anxiety) Qty: 60 3RF Rx Instructions: May take one tablet twice per day as needed for anxiety benztropine 1 mg tablet 1 mg PO .evening Qty: 30 6RF Rx Instructions: Take one tablet every evening propranolol 20 mg tablet 20 mg PO BID Qty: 60 6RF Rx Instructions: Take one tablet twice per day trazodone 50 mg tablet 50 mg PO BEDTIME PRN (Reason: insomnia) Qty: 30 6RF Rx Instructions: Take one tablet at bedtime as needed for sleep ziprasidone HCl [Geodon] 80 mg capsule 80 mg PO .evening Qty: 60 3RF Rx Instructions: Take one capsule, 80 mg, at noon with lunch and one capsule with 20 mg capsule in evening, total dose 100 mg with dinner in evening, 500 jim of food ziprasidone HCl [Geodon] 20 mg capsule 20 mg PO .evening Qty: 30 6RF Rx Instructions: Take one capsule in evening at dinner, with 80 mg capsule, total dose 100 mg, give with 500 calorie meal multivitamin Tablet 1 tab PO DAILY psyllium Powder 2 tsp PO BID Rx Instructions: mix into at least 8 oz of water or juice before administering alum-mag hydroxide-simeth 200-200-20 mg/5 mL suspension 20 ml PO DAILY PRN Rx Instructions: for GERD Acidophilus Probiotic Complex 250 million cell capsule 1 cap PO DAILY nicotine (polacrilex) 4 mg lozenge 4 mg BUCCAL Q1H PRN (Reason: nicotine cravings) Qty: 24 6RF Rx Instructions: May take one nicotine lozenge-do not exceed more than 20 oz/day or 5 oz in 6 hr Discharge Orders: Discharge ED (Routine); Ordered 05/16/25 Ordered By: Maciej Brock Referrals: Tyson Velasco MD [Primary Care Provider, Family Practice] - 7-10 days Discharge Diet: Advance as tolerated Discharge Activity: Resume usual activity Patient Instructions: Staple Care (ED), Head Laceration (ED) Activity Restrictions/Additional Instructions: staple removal in 7-10 days Print Language: [place] Coding Level of Care Code ED Private Branch Exchange Operator for Geri Royal
== END 2025-05-16 13:35 | disposition home or self-care (01) ==
PROVIDERS: Emergency Provider Emergency Medicine; PCP Family Medicine
DX: S01.01XA Laceration without foreign body of scalp, initial encounter (principal); F17.210 Nicotine dependence, cigarettes, uncomplicated; W01.0XXA Fall on same level from slipping, tripping and stumbling without subsequent striking against object, initial encounter
CPT/HCPCS: 12001; 99282